=== PATIENT | male | born 1945 | race Caucasian/White ===

== ENCOUNTER 2017-04-26 16:42 | Inpatient (IN) | payer MEDICARE, BC ==
[2017-04-26] MEDS: SOD CHLORIDE 0.9% 500 ML IV (19:18)
[2017-04-26 19:29] LABS: WHITE BLOOD COUNT 2.8 10^3/ul (4.8-10.8)
[2017-04-26 19:29] LABS: ABNORMAL IP MESSAGE 1; HEMATOCRIT 16.7 % (42.0-52.0); MEAN CORPUSCULAR HEMOGLOBIN 28.4 pg (29.0-33.0); MEAN CORPUSCULAR HGB CONC 34.7 g/dl (32.0-37.0); MEAN CORPUSCULAR VOLUME 81.9 fl (82.0-101.0); NUCLEATED RED BLOOD CELLS% 0.7 /100WBC (0.0-0.0); POSITIVE DIFF @See below; RED BLOOD COUNT 2.04 10^6/ul (4.70-6.10); RED CELL DISTRIBUTION WIDTH 14.6 % (11.5-14.5)
[2017-04-26 19:38] LABS: ADD MAN DIFF? YES; HEMOGLOBIN 5.8 g/dl (14.0-18.0); PLATELET COUNT 24 10^3/UL (140-415)
[2017-04-26 19:43] LABS: PROTIME 13.3 Sec (11.9-14.9)
[2017-04-26 19:44] LABS: PARTIAL THROMBOPLASTIN TIME 34.6 Sec (25.0-35.0)
[2017-04-26 19:50] LABS: ALANINE AMINOTRANSFERASE 25 IU/L (13-69); ALBUMIN 3.3 g/dl (3.3-4.9); ALBUMIN/GLOBULIN RATIO 1.13; ALKALINE PHOSPHATASE 239 IU/L (42-121); ANION GAP 18 (8-16); ASPARTATE AMINO TRANSFERASE 13 IU/L (15-46); BILIRUBIN,INDIRECT 0.3 mg/dl (0-1.1); BILIRUBIN,TOTAL 0.3 mg/dl (0.2-1.3); BLOOD UREA NITROGEN 19 mg/dl (7-20); CALCIUM 8.3 mg/dl (8.4-10.2); CARBON DIOXIDE 25 mmol/L (21-31); CHLORIDE 99 mmol/L (97-110); CREATININE 1.09 mg/dl (0.61-1.24); GLUCOSE 134 mg/dl (70-220); LIPASE 41 U/L (23-300); POTASSIUM 4.1 mmol/L (3.5-5.1); SODIUM 138 mmol/L (135-144); TOTAL PROTEIN 6.2 g/dl (6.1-8.1)
[2017-04-26 20:02] LABS: TROPONIN-I 0.022 ng/ml (0.00-0.12)
[2017-04-26 20:08] LABS: ANISOCYTOSIS 3+ (0-0); BAND NEUTROPHILS #M 0.3 10^3/ul (0.0-0.6); BAND NEUTROPHILS % (M) 12 % (0-4); LYMPHOCYTES #M 0.7 10^3/ul (0.8-2.9); LYMPHOCYTES % (M) 28 % (15-51); METAMYELOCYTES %M 2 % (0-0); MICROCYTOSIS 3+ (0-0); MONOCYTE #M 0.1 10^3/ul (0.3-0.9); MONOCYTES % (M) 5 % (0-11); MYELOCYTES % (M) 3 % (0-0); PLATELET ESTIMATE SIG DECREASED; POLYCHROMASIA 2+ (0-0); PROMYELOCYTES % (M) 2 % (0-0); REACTIVE LYMPHOCYTES% (M) 1 % (0-0); SEG NEUT #M 1.3 10^3/ul (1.7-7.5); SEGMENTED NEUTROPHILS (M) % 47 % (39-77); SMUDGE%M 13 % (0-0)
[2017-04-27] MEDS ORDERED: PONATINIB HCL PO (09:00)
[2017-04-27] MEDS ORDERED: GLUCOSE GEL 15 GRAM TUBE PO ×2 (09:30)
[2017-04-27] MEDS ORDERED: DEXTROSE 50% 50 ML SYRINGE IV ×2 (09:30)
[2017-04-27] MEDS ORDERED: GLUCOSE GEL 15 GRAM TUBE BUCCAL (09:30)
[2017-04-27] MEDS ORDERED: GLUCAGON 1 MG INJ IM (09:30)
[2017-04-27] MEDS: [UNRECOGNIZED DRUG - OTHER] XX ×3 (10:00→22:48)
[2017-04-27 11:31] LABS: IMMEDIATE SPIN CROSSMATCH 1 2
[2017-04-27] MEDS: INSULIN ASPART [NOVOLOG] 3 ML PEN SC ×4 (12:00→21:00)
[2017-04-27] MEDS: DRONABINOL 2.5 MG CAP PO ×2 (12:33→22:47)
[2017-04-27] MEDS: METOPROLOL 25 MG TAB PO ×2 (12:34→21:50)
[2017-04-27] MEDS: metFORMIN 500 MG TAB PO ×2 (12:34→18:01)
[2017-04-27] MEDS: LINAGLIPTIN 5 MG TABLET PO (12:34)
[2017-04-27] MEDS: ACYCLOVIR 400 MG TAB PO ×2 (12:35→22:47)
[2017-04-27] MEDS: SENNA TAB PO ×2 (12:35→21:51)
[2017-04-27] MEDS: FUROSEMIDE 20 MG TAB PO (12:58)
[2017-04-27] MEDS: LORATADINE 10 MG TAB PO (17:55)
[2017-04-27] MEDS: SALMETEROL/FLUTICASONE 250/50 INHA INH ×2 (17:58→21:50)
[2017-04-27 19:13] LABS: ABNORMAL IP MESSAGE 1; HEMATOCRIT 24.2 % (42.0-52.0); HEMOGLOBIN 8.7 g/dl (14.0-18.0); MEAN CORPUSCULAR HEMOGLOBIN 29.7 pg (29.0-33.0); MEAN CORPUSCULAR VOLUME 82.6 fl (82.0-101.0); POSITIVE DIFF @See below; RED BLOOD COUNT 2.93 10^6/ul (4.70-6.10); RED CELL DISTRIBUTION WIDTH 14.4 % (11.5-14.5)
[2017-04-27 19:13] LABS: WHITE BLOOD COUNT 3.8 10^3/ul (4.8-10.8)
[2017-04-27 19:17] LABS: PLATELET COUNT 26 10^3/UL (140-415)
[2017-04-27 19:18] LABS: ADD MAN DIFF? YES
[2017-04-27 19:45] LABS: MAGNESIUM 1.6 mg/dl (1.7-2.5)
[2017-04-27 19:49] LABS: ANISOCYTOSIS 2+ (0-0); BAND NEUTROPHILS #M 0.1 10^3/ul (0.0-0.6); BAND NEUTROPHILS % (M) 3 % (0-4); EOSINOPHILS % (M) 1 % (0-7); GIANT THROMBO% (M) 2 % (0-0); LYMPHOCYTES #M 0.6 10^3/ul (0.8-2.9); LYMPHOCYTES % (M) 18 % (15-51); METAMYELOCYTES %M 1 % (0-0); MICROCYTOSIS 2+ (0-0); MONOCYTE #M 0.1 10^3/ul (0.3-0.9); MONOCYTES % (M) 5 % (0-11); MYELOCYTES #M 0.1 10^3/ul (0.0-0.0); MYELOCYTES % (M) 4 % (0-0); PLATELET ESTIMATE SIG DECREASED; POIKILOCYTOSIS 1+ (0-0); POLYCHROMASIA 2+ (0-0); PROMYELOCYTES % (M) 1 % (0-0); SEG NEUT #M 2.5 10^3/ul (1.7-7.5); SEGMENTED NEUTROPHILS (M) % 67 % (39-77); SMUDGE%M 1 % (0-0)
[2017-04-27 19:59] LABS: TROPONIN-I 0.044 ng/ml (0.00-0.12)
[2017-04-27] MEDS: INSULIN GLARGINE [LANtus] 3 ML PEN SC (21:00)
[2017-04-27] MEDS: TAMSULOSIN (SR) 0.4 MG CAP PO (21:50)
[2017-04-28 01:41] LABS: TROPONIN-I 0.035 ng/ml (0.00-0.12)
[2017-04-28] MEDS: ACCU-CHEK XX (02:00)
[2017-04-28] MEDS: ACYCLOVIR 400 MG TAB PO ×2 (08:16→21:39)
[2017-04-28] MEDS: DRONABINOL 2.5 MG CAP PO ×2 (08:16→21:38)
[2017-04-28] MEDS: LINAGLIPTIN 5 MG TABLET PO (08:16)
[2017-04-28] MEDS: INSULIN ASPART [NOVOLOG] 3 ML PEN SC ×7 (08:17→21:00)
[2017-04-28] MEDS: SENNA TAB PO ×2 (08:17→21:38)
[2017-04-28] MEDS: LORATADINE 10 MG TAB PO (08:18)
[2017-04-28] MEDS: METOPROLOL 25 MG TAB PO ×2 (08:19→21:39)
[2017-04-28] MEDS: metFORMIN 500 MG TAB PO ×2 (08:19→18:05)
[2017-04-28] MEDS: FUROSEMIDE 20 MG TAB PO (08:19)
[2017-04-28] MEDS: SALMETEROL/FLUTICASONE 250/50 INHA INH ×2 (08:22→21:38)
[2017-04-28 08:37] LABS: ADD MAN DIFF? NO
[2017-04-28 08:39] LABS: ABNORMAL IP MESSAGE 1; BASOPHILS % 0.5 % (0.0-2.0); EOSINOPHILS % 0.3 % (0.0-7.0); HEMATOCRIT 22.3 % (42.0-52.0); LYMPHOCYTES # 0.6 10^3/ul (0.8-2.9); LYMPHOCYTES % 15.3 % (15.0-51.0); MEAN CORPUSCULAR HEMOGLOBIN 29.1 pg (29.0-33.0); MEAN CORPUSCULAR HGB CONC 35.9 g/dl (32.0-37.0); MEAN CORPUSCULAR VOLUME 81.1 fl (82.0-101.0); MONOCYTE # 0.4 10^3/ul (0.3-0.9); MONOCYTES % 9.9 % (0.0-11.0); NEUTROPHIL # 2.3 10^3/ul (1.6-7.5); NEUTROPHILS % 61.1 % (39.0-77.0); POSITIVE DIFF @See below; RED BLOOD COUNT 2.75 10^6/ul (4.70-6.10); RED CELL DISTRIBUTION WIDTH 14.7 % (11.5-14.5)
[2017-04-28 08:39] LABS: WHITE BLOOD COUNT 3.7 10^3/ul (4.8-10.8)
[2017-04-28 08:46] LABS: PLATELET COUNT 22 10^3/UL (140-415)
[2017-04-28 09:09] LABS: ANION GAP 19 (8-16); BLOOD UREA NITROGEN 17 mg/dl (7-20); CALCIUM 8.5 mg/dl (8.4-10.2); CARBON DIOXIDE 22 mmol/L (21-31); CHLORIDE 102 mmol/L (97-110); GLUCOSE 137 mg/dl (70-220); MAGNESIUM 1.5 mg/dl (1.7-2.5); PHOSPHORUS 4.1 mg/dl (2.5-4.9); POTASSIUM 3.7 mmol/L (3.5-5.1); SODIUM 139 mmol/L (135-144)
[2017-04-28 10:13] LABS: ANISOCYTOSIS 3+ (0-0); BAND NEUTROPHILS #M 0.5 10^3/ul (0.0-0.6); BAND NEUTROPHILS % (M) 14 % (0-4); EOSINOPHILS % (M) 1 % (0-7); LYMPHOCYTES #M 0.4 10^3/ul (0.8-2.9); LYMPHOCYTES % (M) 13 % (15-51); MICROCYTOSIS 3+ (0-0); MONOCYTE #M 0.1 10^3/ul (0.3-0.9); MONOCYTES % (M) 3 % (0-11); MYELOCYTES #M 0.1 10^3/ul (0.0-0.0); MYELOCYTES % (M) 3 % (0-0); PLATELET ESTIMATE SIG DECREASED; POIKILOCYTOSIS 1+ (0-0); POLYCHROMASIA 1+ (0-0); REACTIVE LYMPHOCYTES% (M) 1 % (0-0); SEG NEUT #M 2.2 10^3/ul (1.7-7.5); SEGMENTED NEUTROPHILS (M) % 60 % (39-77); SMUDGE%M 2 % (0-0)
[2017-04-28] MEDS: PONATINIB PO (12:14)
[2017-04-28 12:24] LABS: WHITE BLOOD COUNT 3.7 10^3/ul (4.8-10.8)
[2017-04-28 12:24] LABS: ABNORMAL IP MESSAGE 1; HEMATOCRIT 23.2 % (42.0-52.0); HEMOGLOBIN 8.2 g/dl (14.0-18.0); MEAN CORPUSCULAR HEMOGLOBIN 29.2 pg (29.0-33.0); MEAN CORPUSCULAR HGB CONC 35.3 g/dl (32.0-37.0); MEAN CORPUSCULAR VOLUME 82.6 fl (82.0-101.0); POSITIVE DIFF @See below; RED BLOOD COUNT 2.81 10^6/ul (4.70-6.10); RED CELL DISTRIBUTION WIDTH 14.8 % (11.5-14.5)
[2017-04-28 12:37] LABS: ADD MAN DIFF? YES; PLATELET COUNT 22 10^3/UL (140-415)
[2017-04-28 12:55] LABS: ANION GAP 17 (8-16); BLOOD UREA NITROGEN 17 mg/dl (7-20); CALCIUM 8.5 mg/dl (8.4-10.2); CARBON DIOXIDE 24 mmol/L (21-31); CHLORIDE 101 mmol/L (97-110); CREATININE 0.98 mg/dl (0.61-1.24); GLUCOSE 147 mg/dl (70-220); POTASSIUM 3.6 mmol/L (3.5-5.1); SODIUM 138 mmol/L (135-144)
[2017-04-28 13:16] LABS: ANISOCYTOSIS 3+ (0-0); BAND NEUTROPHILS #M 0.5 10^3/ul (0.0-0.6); BAND NEUTROPHILS % (M) 15 % (0-4); GIANT THROMBO% (M) 1 % (0-0); LYMPHOCYTES #M 0.6 10^3/ul (0.8-2.9); LYMPHOCYTES % (M) 17 % (15-51); METAMYELOCYTES %M 1 % (0-0); MICROCYTOSIS 3+ (0-0); MONOCYTE #M 0.2 10^3/ul (0.3-0.9); MONOCYTES % (M) 6 % (0-11); MYELOCYTES #M 0.1 10^3/ul (0.0-0.0); MYELOCYTES % (M) 3 % (0-0); PLATELET ESTIMATE SIG DECREASED; POIKILOCYTOSIS 1+ (0-0); POLYCHROMASIA 1+ (0-0); SEG NEUT #M 2.2 10^3/ul (1.7-7.5); SEGMENTED NEUTROPHILS (M) % 58 % (39-77); SMUDGE%M 4 % (0-0)
[2017-04-28] MEDS: LACTOBACILLUS RHAMNOSUS CAP PO (18:22)
[2017-04-28 20:58] LABS: TYPE AND SCREEN 1
[2017-04-28] MEDS: INSULIN GLARGINE [LANtus] 3 ML PEN SC (21:00)
[2017-04-28] MEDS: TAMSULOSIN (SR) 0.4 MG CAP PO (21:38)
[2017-04-29] MEDS: ACCU-CHEK XX (02:00)
[2017-04-29] MEDS: INSULIN ASPART [NOVOLOG] 3 ML PEN SC ×4 (08:00→12:44)
[2017-04-29] MEDS: LORATADINE 10 MG TAB PO (08:46)
[2017-04-29] MEDS: ACYCLOVIR 400 MG TAB PO (08:46)
[2017-04-29] MEDS: LINAGLIPTIN 5 MG TABLET PO (08:46)
[2017-04-29] MEDS: metFORMIN 500 MG TAB PO (08:46)
[2017-04-29] MEDS: DRONABINOL 2.5 MG CAP PO (08:46)
[2017-04-29] MEDS: SENNA TAB PO (08:46)
[2017-04-29] MEDS: LACTOBACILLUS RHAMNOSUS CAP PO (08:46)
[2017-04-29] MEDS: FUROSEMIDE 20 MG TAB PO (08:47)
[2017-04-29] MEDS: METOPROLOL 25 MG TAB PO (08:47)
[2017-04-29] MEDS: SALMETEROL/FLUTICASONE 250/50 INHA INH (09:00)
[2017-04-29] MEDS: SOD CHLORIDE 0.9% 250 ML IV* (09:22)
[2017-04-29 10:15] LABS: ABNORMAL IP MESSAGE 1; HEMATOCRIT 24.4 % (42.0-52.0); HEMOGLOBIN 8.4 g/dl (14.0-18.0); MEAN CORPUSCULAR HEMOGLOBIN 28.5 pg (29.0-33.0); MEAN CORPUSCULAR HGB CONC 34.4 g/dl (32.0-37.0); MEAN CORPUSCULAR VOLUME 82.7 fl (82.0-101.0); MEAN PLATELET VOLUME 10.5 fl (7.4-10.4); PLATELET COUNT 70 10^3/UL (140-415); POSITIVE DIFF @See below; RED BLOOD COUNT 2.95 10^6/ul (4.70-6.10); RED CELL DISTRIBUTION WIDTH 15.2 % (11.5-14.5)
[2017-04-29 10:20] LABS: ADD MAN DIFF? YES
[2017-04-29 10:39] LABS: ANION GAP 19 (8-16); BLOOD UREA NITROGEN 14 mg/dl (7-20); CALCIUM 8.4 mg/dl (8.4-10.2); CARBON DIOXIDE 25 mmol/L (21-31); CHLORIDE 100 mmol/L (97-110); CREATININE 1.05 mg/dl (0.61-1.24); GLUCOSE 128 mg/dl (70-220); MAGNESIUM 1.5 mg/dl (1.7-2.5); PHOSPHORUS 4.1 mg/dl (2.5-4.9); POTASSIUM 3.8 mmol/L (3.5-5.1); SODIUM 140 mmol/L (135-144)
[2017-04-29 12:11] LABS: ANISOCYTOSIS 2+ (0-0); BAND NEUTROPHILS #M 0.7 10^3/ul (0.0-0.6); BAND NEUTROPHILS % (M) 19 % (0-4); GIANT THROMBO% (M) 3 % (0-0); LYMPHOCYTES % (M) 25 % (15-51); MICROCYTOSIS 2+ (0-0); MONOCYTE #M 0.2 10^3/ul (0.3-0.9); MONOCYTES % (M) 6 % (0-11); MYELOCYTES % (M) 1 % (0-0); PLATELET ESTIMATE DECREASED; POIKILOCYTOSIS 1+ (0-0); POLYCHROMASIA 1+ (0-0); REACTIVE LYMPHOCYTES #M 0.2 10^3/ul (0.0-0.0); REACTIVE LYMPHOCYTES% (M) 5 % (0-0); SEG NEUT #M 1.8 10^3/ul (1.7-7.5); SEGMENTED NEUTROPHILS (M) % 44 % (39-77); SMUDGE%M 5 % (0-0)
[2017-04-29] MEDS ORDERED: MAGNESIUM SULFATE 2 GM/50 ML 50 ML IVPB (12:30)
[2017-04-29] MEDS: MAGNESIUM SULFATE 2 GM/50 ML 50 ML IVPB (12:41)
[2017-04-29] MEDS: PONATINIB PO (12:43)
[2017-04-29] MEDS: [UNRECOGNIZED DRUG - REMARK] XX (13:30)
== END 2017-04-29 15:30 | disposition home health service (06) | DRG 813 ==
LOC: E/R 16:42 → MS4 18:54
PROC: 30233N1 Transfusion of Nonautologous Red Blood Cells into Peripheral Vein, Percutaneous Approach (ICD-10-PCS; 2017-04-26)
PROC: 30233R1 Transfusion of Nonautologous Platelets into Peripheral Vein, Percutaneous Approach (ICD-10-PCS; principal; 2017-04-28)
DX: D69.59 Other secondary thrombocytopenia (principal); I50.33 Acute on chronic diastolic (congestive) heart failure; D61.818 Other pancytopenia; C92.10 Chronic myeloid leukemia, BCR/ABL-positive, not having achieved remission; I24.9 Acute ischemic heart disease, unspecified; K92.2 Gastrointestinal hemorrhage, unspecified; D64.81 Anemia due to antineoplastic chemotherapy; K92.1 Melena; I11.0 Hypertensive heart disease with heart failure; E11.9 Type 2 diabetes mellitus without complications; N40.0 Benign prostatic hyperplasia without lower urinary tract symptoms; I25.10 Atherosclerotic heart disease of native coronary artery without angina pectoris; E78.5 Hyperlipidemia, unspecified; I49.3 Ventricular premature depolarization; T45.1X5A Adverse effect of antineoplastic and immunosuppressive drugs, initial encounter; Z92.21 Personal history of antineoplastic chemotherapy; Z86.19 Personal history of other infectious and parasitic diseases; Z87.01 Personal history of pneumonia (recurrent)
CPT/HCPCS: 36415; 36430; 71045; 80048; 80053; 82962; 83690; 83735; 84100; 84443; 84484; 85025; 85610; 85730; 86644; 86850; 86900; 86901; 86920; 86945; 87040; 93005; 97162; 99291-25

== ENCOUNTER 2017-05-11 14:21 | Inpatient (IN) | payer MEDICARE, BC ==
[2017-05-11 20:31] LABS: ABNORMAL IP MESSAGE 1; HEMOGLOBIN 7.4 g/dl (14.0-18.0); MEAN CORPUSCULAR HEMOGLOBIN 28.6 pg (29.0-33.0); MEAN CORPUSCULAR HGB CONC 33.6 g/dl (32.0-37.0); MEAN CORPUSCULAR VOLUME 84.9 fl (82.0-101.0); PLATELET COUNT 41 10^3/UL (140-415); POSITIVE DIFF @See below; RED BLOOD COUNT 2.59 10^6/ul (4.70-6.10); RED CELL DISTRIBUTION WIDTH 15.9 % (11.5-14.5)
[2017-05-11 20:35] LABS: ADD MAN DIFF? YES
[2017-05-11 20:45] LABS: INR 1.11; PROTIME 14.5 Sec (11.9-14.9); PT RATIO 1.1
[2017-05-11 20:46] LABS: PARTIAL THROMBOPLASTIN TIME 38.8 Sec (25.0-35.0)
[2017-05-11 20:49] LABS: ALANINE AMINOTRANSFERASE 29 IU/L (13-69); ALBUMIN 3.4 g/dl (3.3-4.9); ALBUMIN/GLOBULIN RATIO 1.03; ALKALINE PHOSPHATASE 216 IU/L (42-121); ANION GAP 15 (8-16); ASPARTATE AMINO TRANSFERASE 15 IU/L (15-46); BILIRUBIN,INDIRECT 0.3 mg/dl (0-1.1); BILIRUBIN,TOTAL 0.3 mg/dl (0.2-1.3); BLOOD UREA NITROGEN 26 mg/dl (7-20); CALCIUM 8.4 mg/dl (8.4-10.2); CARBON DIOXIDE 25 mmol/L (21-31); CHLORIDE 102 mmol/L (97-110); CREATININE 1.15 mg/dl (0.61-1.24); GLUCOSE 176 mg/dl (70-220); LIPASE 59 U/L (23-300); POTASSIUM 3.7 mmol/L (3.5-5.1); SODIUM 138 mmol/L (135-144); TOTAL PROTEIN 6.7 g/dl (6.1-8.1)
[2017-05-11 20:54] LABS: ANISOCYTOSIS 2+ (0-0); BAND NEUTROPHILS #M 0.3 10^3/ul (0.0-0.6); BAND NEUTROPHILS % (M) 8 % (0-4); ERYTHROBLAST% (NRBC) (M) 2 % (0-0); GIANT THROMBO% (M) 5 % (0-0); LYMPHOCYTES #M 0.8 10^3/ul (0.8-2.9); LYMPHOCYTES % (M) 20 % (15-51); MICROCYTOSIS 2+ (0-0); MONOCYTE #M 0.2 10^3/ul (0.3-0.9); MONOCYTES % (M) 5 % (0-11); MYELOCYTES #M 0.2 10^3/ul (0.0-0.0); MYELOCYTES % (M) 5 % (0-0); PLATELET ESTIMATE DECREASED; POIKILOCYTOSIS 1+ (0-0); POLYCHROMASIA 1+ (0-0); PROMYELOCYTES % (M) 2 % (0-0); SEG NEUT #M 2.4 10^3/ul (1.7-7.5); SEGMENTED NEUTROPHILS (M) % 60 % (39-77); SMUDGE%M 4 % (0-0)
[2017-05-11 21:02] LABS: B-TYPE NATRIURETIC PEPTIDE 15800 PG/ML (0-125); TROPONIN-I 0.032 ng/ml (0.00-0.12)
[2017-05-11 22:17] LABS: IMMEDIATE SPIN CROSSMATCH 1 2
[2017-05-12] MEDS: FUROSEMIDE 40 MG INJ IV ×2 (07:53→21:31)
[2017-05-12] MEDS ORDERED: GLUCOSE GEL 15 GRAM TUBE BUCCAL (09:00)
[2017-05-12] MEDS ORDERED: GLUCAGON 1 MG INJ IM (09:00)
[2017-05-12] MEDS ORDERED: GLUCOSE GEL 15 GRAM TUBE PO ×2 (09:00)
[2017-05-12] MEDS ORDERED: DEXTROSE 50% 50 ML SYRINGE IV ×2 (09:00)
[2017-05-12] MEDS ORDERED: PREGABALIN 25 MG CAP PO (09:00)
[2017-05-12] MEDS ORDERED: RANOLAZINE (SR) 500 MG TAB PO (10:00)
[2017-05-12] MEDS: LORATADINE 10 MG TAB PO (10:41)
[2017-05-12] MEDS: SENNA TAB PO ×2 (10:41→21:31)
[2017-05-12] MEDS: LINAGLIPTIN 5 MG TABLET PO (10:42)
[2017-05-12] MEDS: L ACIDOPHIL/B LACTIS/B LONGUM CAPSULE PO ×2 (10:43→21:34)
[2017-05-12] MEDS: METOPROLOL 25 MG TAB PO (10:43)
[2017-05-12] MEDS: CYANOCOBALAMIN 500 MCG TAB PO (10:43)
[2017-05-12] MEDS: ESCITALOPRAM 10 MG TAB PO (10:44)
[2017-05-12] MEDS: FUROSEMIDE 20 MG TAB PO (10:45)
[2017-05-12] MEDS: ENOXAPARIN 30 MG/0.3 ML SYG SC (11:01)
[2017-05-12 12:51] LABS: SODIUM,URINE RANDOM 113 mmol/L (30-90)
[2017-05-12 13:02] LABS: CREATININE,URINE RANDOM < 12.40 mg/dl (20-370)
[2017-05-12] MEDS: INSULIN ASPART [NOVOLOG] 3 ML PEN SC ×3 (13:58→18:00)
[2017-05-12] MEDS: DRONABINOL 2.5 MG CAP PO ×2 (13:59→22:45)
[2017-05-12 14:10] LABS: ADD UMIC NO; UR ASCORBIC ACID NEGATIVE (NEGATIVE); UR BILIRUBIN (Dip) NEGATIVE (NEGATIVE); UR BLOOD (Dip) NEGATIVE (NEGATIVE); UR CLARITY CLEAR (CLEAR); UR COLOR STRAW (YELLOW); UR GLUCOSE (Dip) NEGATIVE (NEGATIVE); UR KETONES (Dip) NEGATIVE (NEGATIVE); UR LEUKOCYTE ESTERASE (Dip) NEGATIVE Leu/ul (NEGATIVE); UR NITRITE (Dip) NEGATIVE (NEGATIVE); UR SPECIFIC GRAVITY (Dip) 1.005 (1.003-1.030); UR TOTAL PROTEIN (Dip) NEGATIVE (NEGATIVE); UR UROBILINOGEN (Dip) NEGATIVE (NEGATIVE)
[2017-05-12 15:53] LABS: CREATINE KINASE 54 IU/L (23-200)
[2017-05-12 16:03] LABS: CK INDEX 5.6
[2017-05-12 16:07] LABS: TROPONIN-I 0.031 ng/ml (0.00-0.12)
[2017-05-12 16:14] LABS: CK-MB 3.02 ng/ml (0.0-2.4)
[2017-05-12] MEDS: metFORMIN 500 MG TAB PO (18:00)
[2017-05-12] MEDS: INSULIN GLARGINE [LANtus] 3 ML PEN SC (21:24)
[2017-05-12] MEDS: TAMSULOSIN (SR) 0.4 MG CAP PO (21:31)
[2017-05-12] MEDS: RANOLAZINE (SR) 500 MG TAB PO (21:33)
[2017-05-12 21:36] LABS: HEMATOCRIT 26.4 % (42.0-52.0)
[2017-05-12 22:01] LABS: CREATINE KINASE 57 IU/L (23-200)
[2017-05-12 22:12] LABS: CK INDEX 5.3; TROPONIN-I 0.036 ng/ml (0.00-0.12)
[2017-05-12 22:13] LABS: CK-MB 3.02 ng/ml (0.0-2.4)
[2017-05-12] MEDS: PREGABALIN 50 MG CAP PO (22:45)
[2017-05-12] MEDS: METOPROLOL 50 MG TAB PO (22:46)
[2017-05-13] MEDS: METOPROLOL 50 MG TAB PO (09:00)
[2017-05-13] MEDS ORDERED: PONATINIB HCL PO ×2 (09:00)
[2017-05-13] MEDS: L ACIDOPHIL/B LACTIS/B LONGUM CAPSULE PO ×2 (09:10→21:46)
[2017-05-13] MEDS: RANOLAZINE (SR) 500 MG TAB PO ×2 (09:12→21:46)
[2017-05-13] MEDS: SENNA TAB PO ×2 (09:12→21:46)
[2017-05-13] MEDS: CYANOCOBALAMIN 500 MCG TAB PO (09:13)
[2017-05-13] MEDS: LORATADINE 10 MG TAB PO (09:13)
[2017-05-13] MEDS: LINAGLIPTIN 5 MG TABLET PO (09:13)
[2017-05-13] MEDS: DRONABINOL 2.5 MG CAP PO ×2 (09:13→21:46)
[2017-05-13] MEDS: ESCITALOPRAM 10 MG TAB PO (09:14)
[2017-05-13] MEDS: FUROSEMIDE 20 MG TAB PO (09:15)
[2017-05-13] MEDS: metFORMIN 500 MG TAB PO ×2 (09:19→16:30)
[2017-05-13] MEDS: INSULIN ASPART [NOVOLOG] 3 ML PEN SC ×3 (09:30→17:55)
[2017-05-13 14:26] LABS: CREATININE, RANDOM URINE 14 mg/dL (20-370); MICROALBUMIN/CREATININE RATIO 71 (<30)
[2017-05-13] MEDS: [UNRECOGNIZED DRUG - OTHER] XX (20:00)
[2017-05-13] MEDS: METOPROLOL 25 MG TAB PO (21:00)
[2017-05-13] MEDS: TAMSULOSIN (SR) 0.4 MG CAP PO (21:46)
[2017-05-13] MEDS: INSULIN GLARGINE [LANtus] 3 ML PEN SC (22:04)
[2017-05-14] MEDS: [UNRECOGNIZED DRUG - OTHER] XX ×2 (04:00→20:00)
[2017-05-14] MEDS: INSULIN ASPART [NOVOLOG] 3 ML PEN SC ×5 (08:20→22:10)
[2017-05-14 08:50] LABS: ABNORMAL IP MESSAGE 1; HEMATOCRIT 25.3 % (42.0-52.0); HEMOGLOBIN 8.6 g/dl (14.0-18.0); MEAN CORPUSCULAR HEMOGLOBIN 28.8 pg (29.0-33.0); MEAN CORPUSCULAR VOLUME 84.6 fl (82.0-101.0); NUCLEATED RED BLOOD CELLS% 0.9 /100WBC (0.0-0.0); POSITIVE DIFF @See below; RED BLOOD COUNT 2.99 10^6/ul (4.70-6.10)
[2017-05-14 08:50] LABS: WHITE BLOOD COUNT 3.2 10^3/ul (4.8-10.8)
[2017-05-14 08:58] LABS: ADD MAN DIFF? YES; PLATELET COUNT 35 10^3/UL (140-415)
[2017-05-14 09:25] LABS: HEMOGLOBIN A1C 6.4 % (0-5.9)
[2017-05-14 09:26] LABS: ANION GAP 13 (8-16); BLOOD UREA NITROGEN 33 mg/dl (7-20); CALCIUM 8.6 mg/dl (8.4-10.2); CARBON DIOXIDE 28 mmol/L (21-31); CHLORIDE 101 mmol/L (97-110); CREATININE 1.31 mg/dl (0.61-1.24); GLUCOSE 136 mg/dl (70-220); MAGNESIUM 1.5 mg/dl (1.7-2.5); PHOSPHORUS 4.9 mg/dl (2.5-4.9); SODIUM 138 mmol/L (135-144)
[2017-05-14] MEDS: LORATADINE 10 MG TAB PO (09:27)
[2017-05-14] MEDS: L ACIDOPHIL/B LACTIS/B LONGUM CAPSULE PO ×2 (09:27→20:51)
[2017-05-14] MEDS: SENNA TAB PO ×2 (09:27→20:51)
[2017-05-14] MEDS: metFORMIN 500 MG TAB PO (09:27)
[2017-05-14] MEDS: RANOLAZINE (SR) 500 MG TAB PO ×2 (09:27→20:51)
[2017-05-14] MEDS: FUROSEMIDE 20 MG TAB PO (09:28)
[2017-05-14] MEDS: DRONABINOL 2.5 MG CAP PO ×2 (09:28→20:51)
[2017-05-14] MEDS: ESCITALOPRAM 10 MG TAB PO (09:28)
[2017-05-14] MEDS: LINAGLIPTIN 5 MG TABLET PO (09:28)
[2017-05-14] MEDS: CYANOCOBALAMIN 500 MCG TAB PO (09:28)
[2017-05-14] MEDS: METOPROLOL 25 MG TAB PO ×2 (09:29→20:52)
[2017-05-14] MEDS: ACCU-CHEK XX ×2 (09:55→20:50)
[2017-05-14 10:33] LABS: ANISOCYTOSIS 3+ (0-0); BAND NEUTROPHILS #M 0.1 10^3/ul (0.0-0.6); BAND NEUTROPHILS % (M) 5 % (0-4); EOSINOPHILS % (M) 1 % (0-7); ERYTHROBLAST% (NRBC) (M) 4 % (0-0); GIANT THROMBO% (M) 6 % (0-0); LYMPHOCYTES #M 0.5 10^3/ul (0.8-2.9); LYMPHOCYTES % (M) 17 % (15-51); METAMYELOCYTES %M 1 % (0-0); MICROCYTOSIS 3+ (0-0); MONOCYTES % (M) 3 % (0-11); MYELOCYTES % (M) 2 % (0-0); PLATELET ESTIMATE SIG DECREASED; POIKILOCYTOSIS 1+ (0-0); POLYCHROMASIA 1+ (0-0); REACTIVE LYMPHOCYTES% (M) 2 % (0-0); SEG NEUT #M 2.2 10^3/ul (1.7-7.5); SEGMENTED NEUTROPHILS (M) % 69 % (39-77); SMUDGE%M 1 % (0-0)
[2017-05-14 13:36] LABS: TYPE AND SCREEN 1
[2017-05-14] MEDS: LIDOCAINE 1% (MPF) 5 ML VIAL (15:24)
[2017-05-14] MEDS ORDERED: INSULIN ASPART [NOVOLOG] 3 ML PEN SC (17:55)
[2017-05-14] MEDS: TAMSULOSIN (SR) 0.4 MG CAP PO (20:51)
[2017-05-14] MEDS: INSULIN GLARGINE [LANtus] 3 ML PEN SC (21:00)
[2017-05-15] MEDS: ACCU-CHEK XX ×6 (01:53→19:55)
[2017-05-15] MEDS: [UNRECOGNIZED DRUG - OTHER] XX ×3 (04:00→19:43)
[2017-05-15 06:30] LABS: HEMOGLOBIN 8.3 g/dl (14.0-18.0); NUCLEATED RED BLOOD CELLS% 0.8 /100WBC (0.0-0.0); POSITIVE DIFF @See below
[2017-05-15 06:30] LABS: WHITE BLOOD COUNT 3.8 10^3/ul (4.8-10.8)
[2017-05-15 06:43] LABS: HEMATOCRIT 24.8 % (42.0-52.0); MEAN CORPUSCULAR HEMOGLOBIN 28.4 pg (29.0-33.0); MEAN CORPUSCULAR HGB CONC 33.5 g/dl (32.0-37.0); MEAN CORPUSCULAR VOLUME 84.9 fl (82.0-101.0); RED BLOOD COUNT 2.92 10^6/ul (4.70-6.10); RED CELL DISTRIBUTION WIDTH 15.9 % (11.5-14.5)
[2017-05-15 06:44] LABS: ABNORMAL IP MESSAGE 1; ADD MAN DIFF? YES; PLATELET COUNT 58 10^3/UL (140-415)
[2017-05-15 07:04] LABS: ANION GAP 13 (8-16); BLOOD UREA NITROGEN 33 mg/dl (7-20); CALCIUM 8.5 mg/dl (8.4-10.2); CARBON DIOXIDE 29 mmol/L (21-31); CHLORIDE 101 mmol/L (97-110); CREATININE 1.41 mg/dl (0.61-1.24); GLUCOSE 98 mg/dl (70-220); MAGNESIUM 1.4 mg/dl (1.7-2.5); PHOSPHORUS 4.8 mg/dl (2.5-4.9); POTASSIUM 4.1 mmol/L (3.5-5.1); SODIUM 139 mmol/L (135-144)
[2017-05-15] MEDS ORDERED: INSULIN ASPART [NOVOLOG] 3 ML PEN SC ×2 (07:55→11:50)
[2017-05-15] MEDS: INSULIN ASPART [NOVOLOG] 3 ML PEN SC ×7 (07:55→21:00)
[2017-05-15] MEDS: CYANOCOBALAMIN 500 MCG TAB PO (09:12)
[2017-05-15] MEDS: RANOLAZINE (SR) 500 MG TAB PO ×2 (09:13→21:18)
[2017-05-15] MEDS: SENNA TAB PO ×2 (09:13→21:18)
[2017-05-15] MEDS: METOPROLOL 25 MG TAB PO ×2 (09:13→21:18)
[2017-05-15] MEDS: LINAGLIPTIN 5 MG TABLET PO (09:13)
[2017-05-15] MEDS: L ACIDOPHIL/B LACTIS/B LONGUM CAPSULE PO ×2 (09:13→21:18)
[2017-05-15] MEDS: LORATADINE 10 MG TAB PO (09:13)
[2017-05-15] MEDS: ESCITALOPRAM 10 MG TAB PO (09:13)
[2017-05-15] MEDS: MAGNESIUM SULFATE 2 GM/50 ML 50 ML IVPB (09:36)
[2017-05-15] MEDS: DRONABINOL 2.5 MG CAP PO ×2 (09:36→21:18)
[2017-05-15 09:48] LABS: ANISOCYTOSIS 2+ (0-0); BAND NEUTROPHILS #M 0.5 10^3/ul (0.0-0.6); BAND NEUTROPHILS % (M) 15 % (0-4); GIANT THROMBO% (M) 14 % (0-0); LYMPHOCYTES #M 0.3 10^3/ul (0.8-2.9); LYMPHOCYTES % (M) 9 % (15-51); METAMYELOCYTES %M 1 % (0-0); MICROCYTOSIS 2+ (0-0); MONOCYTES % (M) 2 % (0-11); MYELOCYTES #M 0.2 10^3/ul (0.0-0.0); MYELOCYTES % (M) 6 % (0-0); PLATELET ESTIMATE SIG DECREASED; POLYCHROMASIA 3+ (0-0); PROMYELOCYTES #M 0.1 10^3/ul (0-0); PROMYELOCYTES % (M) 3 % (0-0); REACTIVE LYMPHOCYTES #M 0.1 10^3/ul (0.0-0.0); REACTIVE LYMPHOCYTES% (M) 3 % (0-0); SEG NEUT #M 2.3 10^3/ul (1.7-7.5); SEGMENTED NEUTROPHILS (M) % 59 % (39-77); SMUDGE%M 3 % (0-0)
[2017-05-15 15:42] LABS: HAPTOGLOBIN 392 mg/dL (43-212)
[2017-05-15 17:12] LABS: IMMEDIATE SPIN CROSSMATCH 1 1
[2017-05-15] MEDS: TAMSULOSIN (SR) 0.4 MG CAP PO (21:17)
[2017-05-15] MEDS: INSULIN GLARGINE [LANtus] 3 ML PEN SC (22:06)
[2017-05-16] MEDS: PREGABALIN 50 MG CAP PO ×2 (00:45→09:00)
[2017-05-16] MEDS: ACCU-CHEK XX ×3 (02:00→10:15)
[2017-05-16] MEDS: [UNRECOGNIZED DRUG - OTHER] XX (04:00)
[2017-05-16 06:42] LABS: ABNORMAL IP MESSAGE 1; HEMATOCRIT 28.3 % (42.0-52.0); HEMOGLOBIN 9.7 g/dl (14.0-18.0); MEAN CORPUSCULAR HEMOGLOBIN 29.2 pg (29.0-33.0); MEAN CORPUSCULAR HGB CONC 34.3 g/dl (32.0-37.0); MEAN CORPUSCULAR VOLUME 85.2 fl (82.0-101.0); NUCLEATED RED BLOOD CELLS% 0.8 /100WBC (0.0-0.0); PLATELET COUNT 56 10^3/UL (140-415); POSITIVE DIFF @See below; RED BLOOD COUNT 3.32 10^6/ul (4.70-6.10); RED CELL DISTRIBUTION WIDTH 15.8 % (11.5-14.5)
[2017-05-16 06:42] LABS: WHITE BLOOD COUNT 3.9 10^3/ul (4.8-10.8)
[2017-05-16 07:03] LABS: ADD MAN DIFF? YES
[2017-05-16 07:14] LABS: ANION GAP 15 (8-16); BLOOD UREA NITROGEN 35 mg/dl (7-20); CALCIUM 8.8 mg/dl (8.4-10.2); CARBON DIOXIDE 27 mmol/L (21-31); CHLORIDE 101 mmol/L (97-110); CREATININE 1.48 mg/dl (0.61-1.24); GLUCOSE 122 mg/dl (70-220); MAGNESIUM 1.8 mg/dl (1.7-2.5); PHOSPHORUS 4.7 mg/dl (2.5-4.9); POTASSIUM 4.5 mmol/L (3.5-5.1); SODIUM 138 mmol/L (135-144)
[2017-05-16] MEDS: INSULIN ASPART [NOVOLOG] 3 ML PEN SC ×2 (07:55→08:57)
[2017-05-16] MEDS: CYANOCOBALAMIN 500 MCG TAB PO (09:00)
[2017-05-16] MEDS: LINAGLIPTIN 5 MG TABLET PO (09:00)
[2017-05-16] MEDS: DRONABINOL 2.5 MG CAP PO (09:00)
[2017-05-16] MEDS: L ACIDOPHIL/B LACTIS/B LONGUM CAPSULE PO (09:00)
[2017-05-16] MEDS: RANOLAZINE (SR) 500 MG TAB PO (09:00)
[2017-05-16] MEDS: SENNA TAB PO (09:00)
[2017-05-16] MEDS: LORATADINE 10 MG TAB PO (09:00)
[2017-05-16] MEDS: METOPROLOL 25 MG TAB PO (09:00)
[2017-05-16] MEDS: ESCITALOPRAM 10 MG TAB PO (09:00)
[2017-05-16 09:30] LABS: ANISOCYTOSIS 2+ (0-0); BAND NEUTROPHILS #M 0.4 10^3/ul (0.0-0.6); BAND NEUTROPHILS % (M) 12 % (0-4); BLAST% (M) 6.1 % (0-0); EOSINOPHILS % (M) 1 % (0-7); ERYTHROBLAST% (NRBC) (M) 1 % (0-0); GIANT THROMBO% (M) 19 % (0-0); LYMPHOCYTES #M 0.3 10^3/ul (0.8-2.9); LYMPHOCYTES % (M) 9 % (15-51); METAMYELOCYTES %M 2 % (0-0); MICROCYTOSIS 2+ (0-0); MONOCYTES % (M) 1 % (0-11); MYELOCYTES #M 0.1 10^3/ul (0.0-0.0); MYELOCYTES % (M) 3 % (0-0); PLATELET ESTIMATE DECREASED; POIKILOCYTOSIS 1+ (0-0); POLYCHROMASIA 1+ (0-0); REACTIVE LYMPHOCYTES #M 0.2 10^3/ul (0.0-0.0); REACTIVE LYMPHOCYTES% (M) 7 % (0-0); SEG NEUT #M 2.3 10^3/ul (1.7-7.5); SEGMENTED NEUTROPHILS (M) % 59 % (39-77)
== END 2017-05-16 11:55 | disposition home health service (06) | DRG 808 ==
LOC: E/R 05-12 21:40 → TEL 21:15
PROC: 30233N1 Transfusion of Nonautologous Red Blood Cells into Peripheral Vein, Percutaneous Approach (ICD-10-PCS; 2017-05-11)
PROC: 0W993ZZ Drainage of Right Pleural Cavity, Percutaneous Approach (ICD-10-PCS; principal; 2017-05-14)
PROC: 30233R1 Transfusion of Nonautologous Platelets into Peripheral Vein, Percutaneous Approach (ICD-10-PCS; 2017-05-14)
DX: D61.810 Antineoplastic chemotherapy induced pancytopenia (principal); I50.33 Acute on chronic diastolic (congestive) heart failure; J96.01 Acute respiratory failure with hypoxia; N17.9 Acute kidney failure, unspecified; C92.00 Acute myeloblastic leukemia, not having achieved remission; J90 Pleural effusion, not elsewhere classified; R64 Cachexia; E87.1 Hypo-osmolality and hyponatremia; I11.0 Hypertensive heart disease with heart failure; E83.42 Hypomagnesemia; E11.9 Type 2 diabetes mellitus without complications; I25.10 Atherosclerotic heart disease of native coronary artery without angina pectoris; N40.0 Benign prostatic hyperplasia without lower urinary tract symptoms; R53.83 Other fatigue; Z68.24 Body mass index [BMI] 24.0-24.9, adult
CPT/HCPCS: 36415; 36430; 71045; 76942; 80048; 80053; 81003; 82043; 82550; 82553; 82962; 83010; 83036; 83690; 83735; 83880; 84100; 84155; 84300; 84443; 84484; 85014; 85018; 85025; 85610; 85730; 86644; 86850; 86900; 86901; 86920; 86945; 87081; 87400; 93005; 96372; 96374; 96375; 99285-25

== ENCOUNTER 2017-06-01 10:08 | Emergency (ER) | payer SELFPAY, BC, MEDICARE | END 2017-06-01 14:31 | disposition left against medical advice (07) | LOC: E/R 14:31 | DX: Z53.21 Procedure and treatment not carried out due to patient leaving prior to being seen by health care provider (principal) ==

== ENCOUNTER 2017-07-19 00:16 | Inpatient (IN) | payer MEDICARE, BC ==
[2017-07-19 02:38] LABS: WHITE BLOOD COUNT 2.1 10^3/ul (4.8-10.8)
[2017-07-19 02:38] LABS: ABNORMAL IP MESSAGE 1; HEMATOCRIT 22.8 % (42.0-52.0); HEMOGLOBIN 7.6 g/dl (14.0-18.0); MEAN CORPUSCULAR HEMOGLOBIN 30.6 pg (29.0-33.0); MEAN CORPUSCULAR HGB CONC 33.3 g/dl (32.0-37.0); MEAN CORPUSCULAR VOLUME 91.9 fl (82.0-101.0); NUCLEATED RED BLOOD CELLS% 1.9 /100WBC (0.0-0.0); PLATELET COUNT 58 10^3/UL (140-415); POSITIVE DIFF @See below; RED BLOOD COUNT 2.48 10^6/ul (4.70-6.10); RED CELL DISTRIBUTION WIDTH 19.4 % (11.5-14.5)
[2017-07-19 02:40] LABS: ADD MAN DIFF? YES
[2017-07-19 02:51] LABS: LACTIC ACID 0.6 mmol/L (0.5-2.0)
[2017-07-19 03:00] LABS: ALANINE AMINOTRANSFERASE 30 IU/L (13-69); ALBUMIN 3.8 g/dl (3.3-4.9); ALBUMIN/GLOBULIN RATIO 1.35; ALKALINE PHOSPHATASE 93 IU/L (42-121); ANION GAP 15 (8-16); ASPARTATE AMINO TRANSFERASE 20 IU/L (15-46); BILIRUBIN,INDIRECT 0.3 mg/dl (0-1.1); BILIRUBIN,TOTAL 0.3 mg/dl (0.2-1.3); BLOOD UREA NITROGEN 22 mg/dl (7-20); CALCIUM 8.9 mg/dl (8.4-10.2); CARBON DIOXIDE 26 mmol/L (21-31); CHLORIDE 102 mmol/L (97-110); CREATININE 1.04 mg/dl (0.61-1.24); GLUCOSE 149 mg/dl (70-220); POTASSIUM 4.4 mmol/L (3.5-5.1); SODIUM 139 mmol/L (135-144); TOTAL PROTEIN 6.6 g/dl (6.1-8.1)
[2017-07-19 03:07] LABS: INR 1.06; PROTIME 13.9 Sec (11.9-14.9); PT RATIO 1.1
[2017-07-19 03:11] LABS: TROPONIN-I 0.041 ng/ml (0.00-0.12)
[2017-07-19 04:11] LABS: ANISOCYTOSIS 3+ (0-0); BAND NEUTROPHILS #M 0.2 10^3/ul (0.0-0.6); BAND NEUTROPHILS % (M) 14 % (0-4); EOSINOPHILS % (M) 1 % (0-7); ERYTHROBLAST% (NRBC) (M) 3 % (0-0); GIANT THROMBO% (M) 4 % (0-0); LYMPHOCYTES #M 0.4 10^3/ul (0.8-2.9); LYMPHOCYTES % (M) 20 % (15-51); METAMYELOCYTES %M 1 % (0-0); MICROCYTOSIS 3+ (0-0); MONOCYTE #M 0.1 10^3/ul (0.3-0.9); MONOCYTES % (M) 5 % (0-11); MYELOCYTES % (M) 2 % (0-0); PLATELET ESTIMATE DECREASED; POIKILOCYTOSIS 1+ (0-0); POLYCHROMASIA 3+ (0-0); PROMYELOCYTES % (M) 1 % (0-0); REACTIVE LYMPHOCYTES% (M) 2 % (0-0); SEG NEUT #M 1.2 10^3/ul (1.6-7.5); SEGMENTED NEUTROPHILS (M) % 56 % (39-77); SMUDGE%M 2 % (0-0)
[2017-07-19 06:45] LABS: LACTIC ACID 0.9 mmol/L (0.5-2.0)
[2017-07-19 07:03] LABS: ADD UMIC NO; UR ASCORBIC ACID NEGATIVE (NEGATIVE); UR BILIRUBIN (Dip) NEGATIVE (NEGATIVE); UR BLOOD (Dip) NEGATIVE (NEGATIVE); UR CLARITY CLEAR (CLEAR); UR COLOR YELLOW (YELLOW); UR GLUCOSE (Dip) NEGATIVE (NEGATIVE); UR KETONES (Dip) NEGATIVE (NEGATIVE); UR LEUKOCYTE ESTERASE (Dip) NEGATIVE Leu/ul (NEGATIVE); UR NITRITE (Dip) NEGATIVE (NEGATIVE); UR SPECIFIC GRAVITY (Dip) 1.012 (1.003-1.030); UR TOTAL PROTEIN (Dip) NEGATIVE (NEGATIVE); UR UROBILINOGEN (Dip) NEGATIVE (NEGATIVE)
[2017-07-19] MEDS ORDERED: GLUCOSE GEL 15 GRAM TUBE BUCCAL (09:30)
[2017-07-19] MEDS ORDERED: DEXTROSE 50% 50 ML SYRINGE IV ×2 (09:30)
[2017-07-19] MEDS ORDERED: GLUCAGON 1 MG INJ IM (09:30)
[2017-07-19] MEDS ORDERED: GLUCOSE GEL 15 GRAM TUBE PO ×2 (09:30)
[2017-07-19] MEDS: PANTOPRAZOLE (EC) 40 MG TAB PO (10:13)
[2017-07-19 11:15] LABS: LACTIC ACID 0.8 mmol/L (0.5-2.0)
[2017-07-19 12:11] LABS: IMMEDIATE SPIN CROSSMATCH 1 1
[2017-07-19] MEDS: SOD CHLORIDE 0.9% 250 ML IV* (12:20)
[2017-07-19] MEDS: INSULIN ASPART [NOVOLOG] 3 ML PEN SC ×2 (12:52→17:42)
[2017-07-19] MEDS: TAMSULOSIN (SR) 0.4 MG CAP PO (20:40)
[2017-07-19] MEDS: SENNA TAB PO (20:40)
[2017-07-19] MEDS: METOPROLOL 25 MG TAB PO (20:42)
[2017-07-19] MEDS: DRONABINOL 2.5 MG CAP PO (20:42)
[2017-07-19] MEDS: INSULIN GLARGINE [LANtus] 3 ML PEN SC (21:01)
[2017-07-20] MEDS: PIPER-TAZO 3.375 GM IV (PMX) 100 ML IVPB ×4 (02:17→20:40)
[2017-07-20] MEDS: PANTOPRAZOLE (EC) 40 MG TAB PO (05:51)
[2017-07-20] MEDS: INSULIN ASPART [NOVOLOG] 3 ML PEN SC ×3 (08:00→18:44)
[2017-07-20 08:06] LABS: WHITE BLOOD COUNT 2.7 10^3/ul (4.8-10.8)
[2017-07-20 08:06] LABS: ABNORMAL IP MESSAGE 1; HEMATOCRIT 27.9 % (42.0-52.0); HEMOGLOBIN 9.3 g/dl (14.0-18.0); MEAN CORPUSCULAR HEMOGLOBIN 29.8 pg (29.0-33.0); MEAN CORPUSCULAR HGB CONC 33.3 g/dl (32.0-37.0); MEAN CORPUSCULAR VOLUME 89.4 fl (82.0-101.0); NUCLEATED RED BLOOD CELLS% 1.1 /100WBC (0.0-0.0); PLATELET COUNT 55 10^3/UL (140-415); POSITIVE DIFF @See below; RED BLOOD COUNT 3.12 10^6/ul (4.70-6.10)
[2017-07-20 08:07] LABS: ADD MAN DIFF? YES
[2017-07-20 08:47] LABS: ANION GAP 15 (8-16); BLOOD UREA NITROGEN 23 mg/dl (7-20); CALCIUM 8.9 mg/dl (8.4-10.2); CARBON DIOXIDE 26 mmol/L (21-31); CHLORIDE 104 mmol/L (97-110); CREATININE 1.03 mg/dl (0.61-1.24); GLUCOSE 118 mg/dl (70-220); MAGNESIUM 1.7 mg/dl (1.7-2.5); PHOSPHORUS 4.2 mg/dl (2.5-4.9); POTASSIUM 4.4 mmol/L (3.5-5.1); SODIUM 141 mmol/L (135-144)
[2017-07-20] MEDS: LORATADINE 10 MG TAB PO (08:54)
[2017-07-20] MEDS: ESCITALOPRAM 10 MG TAB PO (08:55)
[2017-07-20] MEDS: PREGABALIN 50 MG CAP PO (08:55)
[2017-07-20] MEDS: FUROSEMIDE 20 MG TAB PO (08:55)
[2017-07-20] MEDS: METOPROLOL 25 MG TAB PO ×2 (08:55→20:36)
[2017-07-20] MEDS: LINAGLIPTIN 5 MG TABLET PO (08:56)
[2017-07-20] MEDS: SENNA TAB PO ×2 (08:56→20:34)
[2017-07-20] MEDS: DRONABINOL 2.5 MG CAP PO ×2 (08:56→20:34)
[2017-07-20 10:30] LABS: ANISOCYTOSIS 2+ (0-0); BAND NEUTROPHILS #M 0.1 10^3/ul (0.0-0.6); BAND NEUTROPHILS % (M) 7 % (0-4); EOSINOPHILS % (M) 1 % (0-7); ERYTHROBLAST% (NRBC) (M) 1 % (0-0); GIANT THROMBO% (M) 8 % (0-0); LYMPHOCYTES #M 0.5 10^3/ul (0.8-2.9); LYMPHOCYTES % (M) 20 % (15-51); METAMYELOCYTES %M 2 % (0-0); MICROCYTOSIS 2+ (0-0); MONOCYTE #M 0.1 10^3/ul (0.3-0.9); MONOCYTES % (M) 4 % (0-11); MYELOCYTES % (M) 2 % (0-0); PLATELET ESTIMATE SIG DECREASED; POIKILOCYTOSIS 1+ (0-0); POLYCHROMASIA 1+ (0-0); SEG NEUT #M 1.7 10^3/ul (1.6-7.5); SEGMENTED NEUTROPHILS (M) % 64 % (39-77); TEAR DROP CELLS 1+ (0-0)
[2017-07-20] MEDS ORDERED: VANCOMYCIN IV PER PHARMACY XX (14:30)
[2017-07-20] MEDS: VANCOMYCIN 1.25 GM in SOD CHLORIDE 0.9% 250 ML IVPB (16:28)
[2017-07-20] MEDS: LIDOCAINE 1% (MDV) 10 ML INJ (17:39)
[2017-07-20 18:43] LABS: FLD MN% 98.6 %; FLD PMN% 1.4 %; FLD RBC 3000 /uL; FLD WBC 360 /cmm
[2017-07-20 19:50] LABS: FLD CLARITY HAZY; FLD COLOR YELLOW
[2017-07-20 19:50] LABS: FLD TYPE PLEURAL
[2017-07-20] MEDS: TAMSULOSIN (SR) 0.4 MG CAP PO (20:34)
[2017-07-20] MEDS: INSULIN GLARGINE [LANtus] 3 ML PEN SC (20:37)
[2017-07-21] MEDS: VANCOMYCIN 750 MG in DEXTROSE 5% 150 ML IVPB ×2 (04:05→15:55)
[2017-07-21] MEDS: PANTOPRAZOLE (EC) 40 MG TAB PO (05:49)
[2017-07-21] MEDS: PIPER-TAZO 3.375 GM IV (PMX) 100 ML IVPB ×2 (05:49→13:22)
[2017-07-21] MEDS: PREGABALIN 50 MG CAP PO (08:48)
[2017-07-21] MEDS: FUROSEMIDE 20 MG TAB PO (08:49)
[2017-07-21] MEDS: LORATADINE 10 MG TAB PO (08:49)
[2017-07-21] MEDS: SENNA TAB PO ×2 (08:49→21:43)
[2017-07-21] MEDS: ESCITALOPRAM 10 MG TAB PO (08:49)
[2017-07-21] MEDS: LINAGLIPTIN 5 MG TABLET PO (08:49)
[2017-07-21] MEDS: DRONABINOL 2.5 MG CAP PO ×2 (08:49→21:00)
[2017-07-21] MEDS: PONATINIB PO ×2 (08:50→09:38)
[2017-07-21] MEDS: METOPROLOL 25 MG TAB PO ×2 (08:50→21:43)
[2017-07-21] MEDS: INSULIN ASPART [NOVOLOG] 3 ML PEN SC ×3 (08:55→19:03)
[2017-07-21 12:08] LABS: ADD MAN DIFF? NO
[2017-07-21 12:15] LABS: ABNORMAL IP MESSAGE 1; BASOPHILS % 0.3 % (0.0-2.0); EOSINOPHILS % 0.9 % (0.0-7.0); HEMATOCRIT 26.9 % (42.0-52.0); HEMOGLOBIN 9.2 g/dl (14.0-18.0); LYMPHOCYTES # 0.6 10^3/ul (0.8-2.9); LYMPHOCYTES % 17.1 % (15.0-51.0); MEAN CORPUSCULAR HEMOGLOBIN 30.6 pg (29.0-33.0); MEAN CORPUSCULAR HGB CONC 34.2 g/dl (32.0-37.0); MEAN CORPUSCULAR VOLUME 89.4 fl (82.0-101.0); MONOCYTE # 0.4 10^3/ul (0.3-0.9); MONOCYTES % 12.5 % (0.0-11.0); NEUTROPHIL # 2.1 10^3/ul (1.6-7.5); NEUTROPHILS % 66.1 % (39.0-77.0); NUCLEATED RED BLOOD CELLS% 1.2 /100WBC (0.0-0.0); POSITIVE DIFF @See below; RED BLOOD COUNT 3.01 10^6/ul (4.70-6.10); RED CELL DISTRIBUTION WIDTH 18.9 % (11.5-14.5)
[2017-07-21 12:15] LABS: WHITE BLOOD COUNT 3.2 10^3/ul (4.8-10.8)
[2017-07-21 12:34] LABS: PLATELET COUNT 59 10^3/UL (140-415)
[2017-07-21 12:45] LABS: ANION GAP 16 (8-16); BLOOD UREA NITROGEN 24 mg/dl (7-20); CARBON DIOXIDE 25 mmol/L (21-31); CHLORIDE 103 mmol/L (97-110); CREATININE 1.18 mg/dl (0.61-1.24); GLUCOSE 112 mg/dl (70-220); MAGNESIUM 1.7 mg/dl (1.7-2.5); PHOSPHORUS 4.6 mg/dl (2.5-4.9); POTASSIUM 4.2 mmol/L (3.5-5.1); SODIUM 140 mmol/L (135-144)
[2017-07-21] MEDS: TAMSULOSIN (SR) 0.4 MG CAP PO (21:43)
[2017-07-21] MEDS: INSULIN GLARGINE [LANtus] 3 ML PEN SC (21:45)
[2017-07-22 03:20] LABS: VANCOMYCIN,TROUGH 12.6 ug/ml (10.0-20.0)
[2017-07-22] MEDS: VANCOMYCIN 750 MG in DEXTROSE 5% 150 ML IVPB ×2 (03:59→16:42)
[2017-07-22 06:09] LABS: ADD MAN DIFF? NO
[2017-07-22 06:14] LABS: ABNORMAL IP MESSAGE 1; BASOPHILS % 0.7 % (0.0-2.0); EOSINOPHILS % 1.1 % (0.0-7.0); HEMATOCRIT 26.1 % (42.0-52.0); LYMPHOCYTES # 0.7 10^3/ul (0.8-2.9); MEAN CORPUSCULAR HEMOGLOBIN 30.8 pg (29.0-33.0); MEAN CORPUSCULAR HGB CONC 34.5 g/dl (32.0-37.0); MEAN CORPUSCULAR VOLUME 89.4 fl (82.0-101.0); MONOCYTE # 0.2 10^3/ul (0.3-0.9); MONOCYTES % 8.8 % (0.0-11.0); NEUTROPHIL # 1.6 10^3/ul (1.6-7.5); NEUTROPHILS % 59.7 % (39.0-77.0); NUCLEATED RED BLOOD CELLS # 0.1 10^3/ul (0.0-0.0); NUCLEATED RED BLOOD CELLS% 1.8 /100WBC (0.0-0.0); PLATELET COUNT 49 10^3/UL (140-415); POSITIVE DIFF @See below; RED BLOOD COUNT 2.92 10^6/ul (4.70-6.10); RED CELL DISTRIBUTION WIDTH 18.7 % (11.5-14.5)
[2017-07-22 06:14] LABS: WHITE BLOOD COUNT 2.7 10^3/ul (4.8-10.8)
[2017-07-22] MEDS: PANTOPRAZOLE (EC) 40 MG TAB PO (06:14)
[2017-07-22 06:47] LABS: ANION GAP 16 (8-16); BLOOD UREA NITROGEN 23 mg/dl (7-20); CALCIUM 8.5 mg/dl (8.4-10.2); CARBON DIOXIDE 23 mmol/L (21-31); CHLORIDE 106 mmol/L (97-110); CREATININE 1.21 mg/dl (0.61-1.24); GLUCOSE 147 mg/dl (70-220); MAGNESIUM 1.6 mg/dl (1.7-2.5); PHOSPHORUS 4.6 mg/dl (2.5-4.9); POTASSIUM 4.1 mmol/L (3.5-5.1); SODIUM 141 mmol/L (135-144)
[2017-07-22] MEDS: INSULIN ASPART [NOVOLOG] 3 ML PEN SC ×3 (09:11→18:45)
[2017-07-22] MEDS: PONATINIB PO (09:11)
[2017-07-22] MEDS: ESCITALOPRAM 10 MG TAB PO (09:12)
[2017-07-22] MEDS: SENNA TAB PO ×2 (09:12→20:23)
[2017-07-22] MEDS: FUROSEMIDE 20 MG TAB PO (09:12)
[2017-07-22] MEDS: LINAGLIPTIN 5 MG TABLET PO (09:13)
[2017-07-22] MEDS: DRONABINOL 2.5 MG CAP PO ×2 (09:13→20:23)
[2017-07-22] MEDS: PREGABALIN 50 MG CAP PO (09:13)
[2017-07-22] MEDS: METOPROLOL 25 MG TAB PO ×2 (09:13→20:27)
[2017-07-22] MEDS: LORATADINE 10 MG TAB PO (09:13)
[2017-07-22] MEDS: TAMSULOSIN (SR) 0.4 MG CAP PO (20:23)
[2017-07-22] MEDS: INSULIN GLARGINE [LANtus] 3 ML PEN SC (22:23)
[2017-07-23] MEDS: VANCOMYCIN 750 MG in DEXTROSE 5% 150 ML IVPB ×2 (03:10→15:46)
[2017-07-23] MEDS: PANTOPRAZOLE (EC) 40 MG TAB PO (05:40)
[2017-07-23 06:12] LABS: CREATININE 1.18 mg/dl (0.61-1.24)
[2017-07-23 06:12] LABS: BLOOD UREA NITROGEN 27 mg/dl (7-20)
[2017-07-23] MEDS: INSULIN ASPART [NOVOLOG] 3 ML PEN SC ×3 (07:50→17:55)
[2017-07-23] MEDS: LINAGLIPTIN 5 MG TABLET PO (09:00)
[2017-07-23] MEDS: METOPROLOL 25 MG TAB PO ×2 (09:00→21:44)
[2017-07-23] MEDS: PREGABALIN 50 MG CAP PO (09:00)
[2017-07-23] MEDS: PONATINIB PO (09:00)
[2017-07-23] MEDS: SENNA TAB PO ×2 (09:00→21:43)
[2017-07-23] MEDS: FUROSEMIDE 20 MG TAB PO (09:00)
[2017-07-23] MEDS: LORATADINE 10 MG TAB PO (09:48)
[2017-07-23] MEDS: DRONABINOL 2.5 MG CAP PO ×2 (09:48→21:41)
[2017-07-23] MEDS: ESCITALOPRAM 10 MG TAB PO (09:48)
[2017-07-23] MEDS ORDERED: hydrALAzine 20 MG INJ IV (19:30)
[2017-07-23] MEDS ORDERED: ONDANSETRON 4 MG INJ IV (19:30)
[2017-07-23] MEDS ORDERED: MEPERIDINE 25 MG INJ IV (19:30)
[2017-07-23] MEDS ORDERED: OXYCODONE/ACETAMINOPHEN (5/325) TAB PO (19:30)
[2017-07-23] MEDS ORDERED: LABETALOL HCL 20MG INJ IV (19:30)
[2017-07-23] MEDS ORDERED: METOCLOPRAMIDE 10 MG INJ IV (19:30)
[2017-07-23] MEDS ORDERED: DIPHENHYDRAMINE 50 MG INJ IV (19:30)
[2017-07-23] MEDS ORDERED: HYDROmorphONE (0.2 MG/ML) 10ML SYG IV ×3 (19:30)
[2017-07-23] MEDS ORDERED: EPHEDrine SULFATE 50 MG/5 ML SYG IV (19:30)
[2017-07-23] MEDS ORDERED: FENTAnyl 50 MCG/ML VIAL IV ×3 (19:30)
[2017-07-23] MEDS ORDERED: MIDAZOLAM 1 MG/ML 2 ML INJ (19:38)
[2017-07-23] MEDS ORDERED: FENTAnyl 50 MCG/ML VIAL (19:38)
[2017-07-23] MEDS: LIDOCAINE 1% (MDV) 20 ML INJ (19:43)
[2017-07-23] MEDS ORDERED: METOCLOPRAMIDE 10 MG INJ (19:44)
[2017-07-23] MEDS ORDERED: ONDANSETRON 4 MG INJ (19:44)
[2017-07-23] MEDS ORDERED: DEXAMETHASONE 4 MG/ML 1 ML INJ (19:45)
[2017-07-23] MEDS: INSULIN GLARGINE [LANtus] 3 ML PEN SC (21:40)
[2017-07-23] MEDS: TAMSULOSIN (SR) 0.4 MG CAP PO (21:41)
[2017-07-23 22:13] LABS: TYPE AND SCREEN 1 1
[2017-07-24] MEDS: VANCOMYCIN 750 MG in DEXTROSE 5% 150 ML IVPB (03:35)
[2017-07-24 05:37] LABS: WHITE BLOOD COUNT 3.2 10^3/ul (4.8-10.8)
[2017-07-24 05:37] LABS: ABNORMAL IP MESSAGE 1; ADD MAN DIFF? NO; BASOPHILS % 0.3 % (0.0-2.0); HEMATOCRIT 24.8 % (42.0-52.0); HEMOGLOBIN 8.2 g/dl (14.0-18.0); LYMPHOCYTES # 0.4 10^3/ul (0.8-2.9); MEAN CORPUSCULAR HEMOGLOBIN 29.9 pg (29.0-33.0); MEAN CORPUSCULAR HGB CONC 33.1 g/dl (32.0-37.0); MEAN CORPUSCULAR VOLUME 90.5 fl (82.0-101.0); MONOCYTE # 0.2 10^3/ul (0.3-0.9); NEUTROPHIL # 2.6 10^3/ul (1.6-7.5); NUCLEATED RED BLOOD CELLS% 0.9 /100WBC (0.0-0.0); POSITIVE DIFF @See below; RED BLOOD COUNT 2.74 10^6/ul (4.70-6.10); RED CELL DISTRIBUTION WIDTH 18.6 % (11.5-14.5)
[2017-07-24 05:49] LABS: MEAN PLATELET VOLUME 13.7 fl (7.4-10.4)
[2017-07-24 05:50] LABS: LYMPHOCYTES % 11.3 % (15.0-51.0)
[2017-07-24 05:51] LABS: PLATELET COUNT 84 10^3/UL (140-415)
[2017-07-24 06:03] LABS: ANION GAP 16 (8-16); BLOOD UREA NITROGEN 26 mg/dl (7-20); CALCIUM 8.9 mg/dl (8.4-10.2); CARBON DIOXIDE 23 mmol/L (21-31); CHLORIDE 108 mmol/L (97-110); CREATININE 0.97 mg/dl (0.61-1.24); GLUCOSE 195 mg/dl (70-220); MAGNESIUM 1.8 mg/dl (1.7-2.5); PHOSPHORUS 3.9 mg/dl (2.5-4.9); POTASSIUM 4.9 mmol/L (3.5-5.1); SODIUM 142 mmol/L (135-144)
[2017-07-24] MEDS: PANTOPRAZOLE (EC) 40 MG TAB PO (06:23)
[2017-07-24] MEDS: SENNA TAB PO (08:57)
[2017-07-24] MEDS: ESCITALOPRAM 10 MG TAB PO (08:57)
[2017-07-24] MEDS: LINAGLIPTIN 5 MG TABLET PO (08:58)
[2017-07-24] MEDS: METOPROLOL 25 MG TAB PO (08:59)
[2017-07-24] MEDS: LORATADINE 10 MG TAB PO (08:59)
[2017-07-24] MEDS: PONATINIB PO (08:59)
[2017-07-24] MEDS: FUROSEMIDE 20 MG TAB PO (08:59)
[2017-07-24] MEDS: DRONABINOL 2.5 MG CAP PO (09:00)
[2017-07-24] MEDS: INSULIN ASPART [NOVOLOG] 3 ML PEN SC (09:01)
[2017-07-24] MEDS: PREGABALIN 50 MG CAP PO (09:04)
== END 2017-07-24 13:29 | disposition home or self-care (01) | DRG 853 ==
LOC: MS1 07-21 17:20 → E/R 00:16 → MS4 03:33
PROC: 02PY03Z Removal of Infusion Device from Great Vessel, Open Approach (ICD-10-PCS; principal; 2017-07-23 19:30)
PROC: 0JB60ZZ Excision of Chest Subcutaneous Tissue and Fascia, Open Approach (ICD-10-PCS; 2017-07-23 19:30)
PROC: 0W993ZX Drainage of Right Pleural Cavity, Percutaneous Approach, Diagnostic (ICD-10-PCS; 2017-07-23 19:33)
PROC: 30233R1 Transfusion of Nonautologous Platelets into Peripheral Vein, Percutaneous Approach (ICD-10-PCS; 2017-07-23 19:33)
PROC: 30233N1 Transfusion of Nonautologous Red Blood Cells into Peripheral Vein, Percutaneous Approach (ICD-10-PCS; 2017-07-23 19:33)
DX: A41.9 Sepsis, unspecified organism (principal); J18.9 Pneumonia, unspecified organism; J96.01 Acute respiratory failure with hypoxia; D61.810 Antineoplastic chemotherapy induced pancytopenia; J86.9 Pyothorax without fistula; C92.00 Acute myeloblastic leukemia, not having achieved remission; N39.0 Urinary tract infection, site not specified; I50.32 Chronic diastolic (congestive) heart failure; R64 Cachexia; T82.7XXA Infection and inflammatory reaction due to other cardiac and vascular devices, implants and grafts, initial encounter; E11.9 Type 2 diabetes mellitus without complications; I25.10 Atherosclerotic heart disease of native coronary artery without angina pectoris; N40.0 Benign prostatic hyperplasia without lower urinary tract symptoms; E78.5 Hyperlipidemia, unspecified; D63.0 Anemia in neoplastic disease; F17.210 Nicotine dependence, cigarettes, uncomplicated; I11.0 Hypertensive heart disease with heart failure; B96.20 Unspecified Escherichia coli [E. coli] as the cause of diseases classified elsewhere; Y83.8 Other surgical procedures as the cause of abnormal reaction of the patient, or of later complication, without mention of misadventure at the time of the procedure; Y92.019 Unspecified place in single-family (private) house as the place of occurrence of the external cause; Z68.24 Body mass index [BMI] 24.0-24.9, adult; Z79.4 Long term (current) use of insulin; Z95.5 Presence of coronary angioplasty implant and graft
CPT/HCPCS: 32555; 36415; 36430; 71045; 80048; 80053; 80202; 81003; 82565; 82962; 83605; 83735; 84100; 84484; 84520; 85025; 85610; 85730; 86850; 86900; 86901; 86920; 87040; 87070; 87086; 87102; 87116; 88104; 88305; 89051; 93005; 99285-25

== ENCOUNTER 2017-08-23 09:13 | Inpatient (IN) | payer MEDICARE, BC ==
[2017-08-23 10:58] LABS: ADD MAN DIFF? NO
[2017-08-23 11:00] LABS: ABNORMAL IP MESSAGE 1; BASOPHILS % 0.4 % (0.0-2.0); EOSINOPHILS % 0.7 % (0.0-7.0); HEMATOCRIT 24.4 % (42.0-52.0); HEMOGLOBIN 7.9 g/dl (14.0-18.0); LYMPHOCYTES # 0.3 10^3/ul (0.8-2.9); LYMPHOCYTES % 12.1 % (15.0-51.0); MEAN CORPUSCULAR HEMOGLOBIN 31.1 pg (29.0-33.0); MEAN CORPUSCULAR HGB CONC 32.4 g/dl (32.0-37.0); MEAN CORPUSCULAR VOLUME 96.1 fl (82.0-101.0); MONOCYTE # 0.2 10^3/ul (0.3-0.9); MONOCYTES % 6.8 % (0.0-11.0); NEUTROPHIL # 2.2 10^3/ul (1.6-7.5); NEUTROPHILS % 77.2 % (39.0-77.0); NUCLEATED RED BLOOD CELLS% 0.7 /100WBC (0.0-0.0); PLATELET COUNT 86 10^3/UL (140-415); POSITIVE DIFF @See below; RED BLOOD COUNT 2.54 10^6/ul (4.70-6.10); RED CELL DISTRIBUTION WIDTH 17.7 % (11.5-14.5)
[2017-08-23 11:00] LABS: WHITE BLOOD COUNT 2.8 10^3/ul (4.8-10.8)
[2017-08-23 11:19] LABS: ALANINE AMINOTRANSFERASE 25 IU/L (13-69); ALBUMIN 3.3 g/dl (3.3-4.9); ALBUMIN/GLOBULIN RATIO 1.22; ALKALINE PHOSPHATASE 93 IU/L (42-121); ANION GAP 16 (8-16); ASPARTATE AMINO TRANSFERASE 17 IU/L (15-46); BILIRUBIN,INDIRECT 0.4 mg/dl (0-1.1); BILIRUBIN,TOTAL 0.4 mg/dl (0.2-1.3); BLOOD UREA NITROGEN 22 mg/dl (7-20); CALCIUM 8.4 mg/dl (8.4-10.2); CARBON DIOXIDE 25 mmol/L (21-31); CHLORIDE 104 mmol/L (97-110); CREATININE 0.97 mg/dl (0.61-1.24); GLUCOSE 234 mg/dl (70-220); POTASSIUM 4.8 mmol/L (3.5-5.1); SODIUM 140 mmol/L (135-144)
[2017-08-23 11:29] LABS: B-TYPE NATRIURETIC PEPTIDE 10100 PG/ML (0-125); TROPONIN-I 0.012 ng/ml (0.00-0.12)
[2017-08-23] MEDS: CEFEPIME 1GM/50 ML (PMX) 50 ML IVPB (11:55)
[2017-08-23] MEDS: INSULIN ASPART [NOVOLOG] 3 ML PEN SC ×5 (12:00→20:27)
[2017-08-23] MEDS ORDERED: VANCOMYCIN IV PER PHARMACY XX (12:00)
[2017-08-23 12:28] LABS: LACTIC ACID 1.1 mmol/L (0.5-2.0)
[2017-08-23] MEDS ORDERED: DIPHENHYDRAMINE 50 MG INJ (12:28)
[2017-08-23] MEDS: DIPHENHYDRAMINE 50 MG INJ IV (12:34)
[2017-08-23] MEDS: FUROSEMIDE 20 MG INJ IV (12:36)
[2017-08-23] MEDS ORDERED: ACETAMINOPHEN 325 MG TAB PO (13:00)
[2017-08-23] MEDS: FUROSEMIDE 40 MG INJ IV (13:00)
[2017-08-23] MEDS ORDERED: DEXTROSE 50% 50 ML SYRINGE IV ×2 (13:00)
[2017-08-23] MEDS ORDERED: GLUCOSE GEL 15 GRAM TUBE PO ×2 (13:00)
[2017-08-23] MEDS ORDERED: ONDANSETRON 4 MG INJ IV (13:00)
[2017-08-23] MEDS ORDERED: GLUCOSE GEL 15 GRAM TUBE BUCCAL (13:00)
[2017-08-23] MEDS ORDERED: GLUCAGON 1 MG INJ IM (13:00)
[2017-08-23] MEDS: VANCOMYCIN 1 GM (PMX) 250 ML IVPB (13:35)
[2017-08-23] MEDS ORDERED: ERTAPENEM SODIUM 1 GM in SOD CHLORIDE 0.9% 100 ML IVPB (14:00)
[2017-08-23] MEDS: LEVOFLOXACIN 500MG/D5W (PMX) 100 ML IVPB (15:57)
[2017-08-23 16:13] LABS: LACTIC ACID 0.8 mmol/L (0.5-2.0)
[2017-08-23 17:00] LABS: ADD UMIC NO; UR ASCORBIC ACID NEGATIVE (NEGATIVE); UR BILIRUBIN (Dip) NEGATIVE (NEGATIVE); UR BLOOD (Dip) NEGATIVE (NEGATIVE); UR CLARITY CLEAR (CLEAR); UR COLOR STRAW (YELLOW); UR GLUCOSE (Dip) NEGATIVE (NEGATIVE); UR KETONES (Dip) NEGATIVE (NEGATIVE); UR LEUKOCYTE ESTERASE (Dip) NEGATIVE Leu/ul (NEGATIVE); UR NITRITE (Dip) NEGATIVE (NEGATIVE); UR SPECIFIC GRAVITY (Dip) 1.006 (1.003-1.030); UR TOTAL PROTEIN (Dip) NEGATIVE (NEGATIVE); UR UROBILINOGEN (Dip) NEGATIVE (NEGATIVE)
[2017-08-23 17:21] LABS: SODIUM,URINE RANDOM 111 mmol/L (30-90)
[2017-08-23 17:23] LABS: CREATININE,URINE RANDOM 20.84 mg/dl (20-370)
[2017-08-23 19:13] LABS: TROPONIN-I < 0.012 ng/ml (0.00-0.12)
[2017-08-23] MEDS: LACTOBACILLUS RHAMNOSUS CAP PO (20:24)
[2017-08-23] MEDS: TAMSULOSIN (SR) 0.4 MG CAP PO (20:24)
[2017-08-23] MEDS: SENNA TAB PO (20:24)
[2017-08-23] MEDS: METOPROLOL 25 MG TAB PO (20:25)
[2017-08-23] MEDS: DRONABINOL 2.5 MG CAP PO (20:36)
[2017-08-23] MEDS: INSULIN GLARGINE [LANtus] 3 ML PEN SC (20:58)
[2017-08-23] MEDS: VANCOMYCIN 750 MG in DEXTROSE 5% 150 ML IVPB (21:26)
[2017-08-24] MEDS ORDERED: ALBUTEROL/IPRATROPIUM (NEB) 3 ML AMP HHN (00:30)
[2017-08-24] MEDS: IPRATROPIUM (NEB) 0.5 MG/2.5 ML AMP HHN ×3 (01:29→19:53)
[2017-08-24 01:32] LABS: TROPONIN-I 0.013 ng/ml (0.00-0.12)
[2017-08-24] MEDS: LORATADINE 10 MG TAB PO (09:00)
[2017-08-24 09:07] LABS: ADD MAN DIFF? NO
[2017-08-24 09:17] LABS: ABNORMAL IP MESSAGE 1; BASOPHILS % 0.3 % (0.0-2.0); EOSINOPHILS % 0.8 % (0.0-7.0); HEMOGLOBIN 8.1 g/dl (14.0-18.0); LYMPHOCYTES # 0.7 10^3/ul (0.8-2.9); LYMPHOCYTES % 17.4 % (15.0-51.0); MEAN CORPUSCULAR HGB CONC 32.4 g/dl (32.0-37.0); MEAN CORPUSCULAR VOLUME 95.8 fl (82.0-101.0); MONOCYTE # 0.3 10^3/ul (0.3-0.9); MONOCYTES % 7.8 % (0.0-11.0); NEUTROPHIL # 2.7 10^3/ul (1.6-7.5); NEUTROPHILS % 69.8 % (39.0-77.0); NUCLEATED RED BLOOD CELLS # 0.1 10^3/ul (0.0-0.0); NUCLEATED RED BLOOD CELLS% 1.3 /100WBC (0.0-0.0); PLATELET COUNT 89 10^3/UL (140-415); POSITIVE DIFF @See below; RED BLOOD COUNT 2.61 10^6/ul (4.70-6.10); RED CELL DISTRIBUTION WIDTH 18.2 % (11.5-14.5)
[2017-08-24 09:17] LABS: WHITE BLOOD COUNT 3.8 10^3/ul (4.8-10.8)
[2017-08-24] MEDS: FUROSEMIDE 20 MG INJ IV (09:23)
[2017-08-24] MEDS: CYANOCOBALAMIN 500 MCG TAB PO (09:23)
[2017-08-24] MEDS: SENNA TAB PO ×2 (09:25→21:00)
[2017-08-24] MEDS: LACTOBACILLUS RHAMNOSUS CAP PO ×2 (09:25→21:41)
[2017-08-24] MEDS: METOPROLOL 25 MG TAB PO ×2 (09:25→21:00)
[2017-08-24] MEDS: ESCITALOPRAM 10 MG TAB PO (09:27)
[2017-08-24] MEDS: LINAGLIPTIN 5 MG TABLET PO (09:28)
[2017-08-24 09:36] LABS: ANION GAP 13 (8-16); BLOOD UREA NITROGEN 24 mg/dl (7-20); CALCIUM 8.4 mg/dl (8.4-10.2); CARBON DIOXIDE 26 mmol/L (21-31); CHLORIDE 107 mmol/L (97-110); CREATININE 1.06 mg/dl (0.61-1.24); GLUCOSE 144 mg/dl (70-220); MAGNESIUM 1.6 mg/dl (1.7-2.5); PHOSPHORUS 3.6 mg/dl (2.5-4.9); POTASSIUM 4.5 mmol/L (3.5-5.1); SODIUM 141 mmol/L (135-144)
[2017-08-24] MEDS: INSULIN ASPART [NOVOLOG] 3 ML PEN SC ×7 (09:36→21:00)
[2017-08-24 09:43] LABS: TROPONIN-I 0.015 ng/ml (0.00-0.12)
[2017-08-24] MEDS: PREGABALIN 25 MG CAP PO (11:42)
[2017-08-24] MEDS: DRONABINOL 2.5 MG CAP PO ×2 (11:42→21:41)
[2017-08-24] MEDS: VANCOMYCIN 750 MG in DEXTROSE 5% 150 ML IVPB (11:44)
[2017-08-24 14:09] LABS: INR 1.03; PROTIME 13.6 Sec (11.9-14.9); PT RATIO 1.1
[2017-08-24] MEDS: MEROPENEM 500MG/50 ML (PMX) 50 ML IVPB ×2 (14:34→21:44)
[2017-08-24 15:41] LABS: CREATININE, RANDOM URINE 25 mg/dL (20-370); MICROALBUMIN 0.4 mg/dL; MICROALBUMIN/CREATININE RATIO 16 (<30)
[2017-08-24] MEDS: LIDOCAINE 1% (MDV) 10 ML INJ ×2 (17:54→18:02)
[2017-08-24] MEDS: INSULIN GLARGINE [LANtus] 3 ML PEN SC (21:00)
[2017-08-24] MEDS: TAMSULOSIN (SR) 0.4 MG CAP PO (21:40)
[2017-08-25] MEDS: IPRATROPIUM (NEB) 0.5 MG/2.5 ML AMP HHN ×4 (02:48→21:20)
[2017-08-25] MEDS: LEVOFLOXACIN 500 MG TAB PO (06:13)
[2017-08-25] MEDS: MEROPENEM 500MG/50 ML (PMX) 50 ML IVPB (06:14)
[2017-08-25] MEDS: INSULIN ASPART [NOVOLOG] 3 ML PEN SC ×8 (08:00→21:00)
[2017-08-25] MEDS: LACTOBACILLUS RHAMNOSUS CAP PO ×2 (08:38→21:32)
[2017-08-25] MEDS: LINAGLIPTIN 5 MG TABLET PO (08:38)
[2017-08-25] MEDS: ESCITALOPRAM 10 MG TAB PO (08:38)
[2017-08-25] MEDS: LORATADINE 10 MG TAB PO (08:38)
[2017-08-25] MEDS: PREGABALIN 25 MG CAP PO (08:38)
[2017-08-25] MEDS: CYANOCOBALAMIN 500 MCG TAB PO (08:38)
[2017-08-25] MEDS: DRONABINOL 2.5 MG CAP PO ×2 (08:39→21:31)
[2017-08-25] MEDS: METOPROLOL 25 MG TAB PO ×2 (08:41→21:32)
[2017-08-25] MEDS: FUROSEMIDE 20 MG INJ IV (08:41)
[2017-08-25] MEDS: SENNA TAB PO ×2 (08:52→21:00)
[2017-08-25 09:53] LABS: ADD MAN DIFF? NO
[2017-08-25 09:56] LABS: ABNORMAL IP MESSAGE 1; BASOPHILS % 0.3 % (0.0-2.0); EOSINOPHILS % 0.5 % (0.0-7.0); HEMATOCRIT 24.4 % (42.0-52.0); HEMOGLOBIN 7.9 g/dl (14.0-18.0); LYMPHOCYTES # 0.5 10^3/ul (0.8-2.9); LYMPHOCYTES % 14.4 % (15.0-51.0); MEAN CORPUSCULAR HEMOGLOBIN 30.7 pg (29.0-33.0); MEAN CORPUSCULAR HGB CONC 32.4 g/dl (32.0-37.0); MEAN CORPUSCULAR VOLUME 94.9 fl (82.0-101.0); MEAN PLATELET VOLUME 13.3 fl (7.4-10.4); MONOCYTE # 0.3 10^3/ul (0.3-0.9); MONOCYTES % 8.6 % (0.0-11.0); NEUTROPHIL # 2.8 10^3/ul (1.6-7.5); NEUTROPHILS % 73.5 % (39.0-77.0); NUCLEATED RED BLOOD CELLS% 1.1 /100WBC (0.0-0.0); PLATELET COUNT 83 10^3/UL (140-415); POSITIVE DIFF @See below; RED BLOOD COUNT 2.57 10^6/ul (4.70-6.10)
[2017-08-25 09:56] LABS: WHITE BLOOD COUNT 3.7 10^3/ul (4.8-10.8)
[2017-08-25 10:21] LABS: ANION GAP 17 (8-16); BLOOD UREA NITROGEN 27 mg/dl (7-20); CALCIUM 9.1 mg/dl (8.4-10.2); CARBON DIOXIDE 25 mmol/L (21-31); CHLORIDE 101 mmol/L (97-110); CREATININE 1.17 mg/dl (0.61-1.24); GLUCOSE 145 mg/dl (70-220); MAGNESIUM 1.6 mg/dl (1.7-2.5); PHOSPHORUS 4.2 mg/dl (2.5-4.9); POTASSIUM 4.4 mmol/L (3.5-5.1); SODIUM 139 mmol/L (135-144)
[2017-08-25] MEDS: INSULIN GLARGINE [LANtus] 3 ML PEN SC (21:00)
[2017-08-25] MEDS: TAMSULOSIN (SR) 0.4 MG CAP PO (21:32)
[2017-08-26] MEDS: IPRATROPIUM (NEB) 0.5 MG/2.5 ML AMP HHN ×4 (02:33→20:06)
[2017-08-26] MEDS: LEVOFLOXACIN 500 MG TAB PO (05:29)
[2017-08-26 05:44] LABS: ADD MAN DIFF? NO
[2017-08-26 05:46] LABS: ABNORMAL IP MESSAGE 1; BASOPHILS % 0.3 % (0.0-2.0); EOSINOPHILS % 0.6 % (0.0-7.0); HEMATOCRIT 24.6 % (42.0-52.0); HEMOGLOBIN 8.1 g/dl (14.0-18.0); LYMPHOCYTES # 0.8 10^3/ul (0.8-2.9); MEAN CORPUSCULAR HEMOGLOBIN 31.5 pg (29.0-33.0); MEAN CORPUSCULAR HGB CONC 32.9 g/dl (32.0-37.0); MEAN CORPUSCULAR VOLUME 95.7 fl (82.0-101.0); MEAN PLATELET VOLUME 12.5 fl (7.4-10.4); MONOCYTE # 0.3 10^3/ul (0.3-0.9); MONOCYTES % 8.6 % (0.0-11.0); NEUTROPHIL # 2.2 10^3/ul (1.6-7.5); NEUTROPHILS % 63.7 % (39.0-77.0); NUCLEATED RED BLOOD CELLS% 0.9 /100WBC (0.0-0.0); PLATELET COUNT 72 10^3/UL (140-415); POSITIVE DIFF @See below; RED BLOOD COUNT 2.57 10^6/ul (4.70-6.10); RED CELL DISTRIBUTION WIDTH 17.9 % (11.5-14.5)
[2017-08-26 05:46] LABS: WHITE BLOOD COUNT 3.4 10^3/ul (4.8-10.8)
[2017-08-26 06:17] LABS: ANION GAP 12 (8-16); BLOOD UREA NITROGEN 33 mg/dl (7-20); CALCIUM 8.8 mg/dl (8.4-10.2); CARBON DIOXIDE 28 mmol/L (21-31); CHLORIDE 105 mmol/L (97-110); CREATININE 1.22 mg/dl (0.61-1.24); GLUCOSE 129 mg/dl (70-220); MAGNESIUM 1.7 mg/dl (1.7-2.5); PHOSPHORUS 4.7 mg/dl (2.5-4.9); POTASSIUM 4.8 mmol/L (3.5-5.1); SODIUM 140 mmol/L (135-144)
[2017-08-26] MEDS: INSULIN ASPART [NOVOLOG] 3 ML PEN SC ×7 (08:00→22:27)
[2017-08-26] MEDS: PREGABALIN 25 MG CAP PO (08:15)
[2017-08-26] MEDS: SENNA TAB PO ×2 (08:16→22:27)
[2017-08-26] MEDS: CYANOCOBALAMIN 500 MCG TAB PO (08:16)
[2017-08-26] MEDS: METOPROLOL 25 MG TAB PO ×2 (08:16→22:28)
[2017-08-26] MEDS: DRONABINOL 2.5 MG CAP PO ×2 (08:16→22:28)
[2017-08-26] MEDS: LORATADINE 10 MG TAB PO (08:17)
[2017-08-26] MEDS: ESCITALOPRAM 10 MG TAB PO (08:17)
[2017-08-26] MEDS: LACTOBACILLUS RHAMNOSUS CAP PO ×2 (08:17→22:27)
[2017-08-26] MEDS: ICLUSIG PO (08:18)
[2017-08-26] MEDS: LINAGLIPTIN 5 MG TABLET PO (08:21)
[2017-08-26] MEDS: FUROSEMIDE 20 MG TAB PO (09:19)
[2017-08-26 22:23] LABS: IMMEDIATE SPIN CROSSMATCH 1 1
[2017-08-26] MEDS: TAMSULOSIN (SR) 0.4 MG CAP PO (22:28)
[2017-08-26] MEDS: INSULIN GLARGINE [LANtus] 3 ML PEN SC (22:37)
[2017-08-27] MEDS: IPRATROPIUM (NEB) 0.5 MG/2.5 ML AMP HHN ×2 (01:19→07:35)
[2017-08-27 07:26] LABS: ADD MAN DIFF? NO
[2017-08-27 07:29] LABS: ABNORMAL IP MESSAGE 1; BASOPHILS % 0.6 % (0.0-2.0); EOSINOPHILS % 0.8 % (0.0-7.0); LYMPHOCYTES # 0.6 10^3/ul (0.8-2.9); LYMPHOCYTES % 17.4 % (15.0-51.0); MEAN CORPUSCULAR HEMOGLOBIN 31.3 pg (29.0-33.0); MEAN CORPUSCULAR HGB CONC 33.3 g/dl (32.0-37.0); MEAN CORPUSCULAR VOLUME 93.8 fl (82.0-101.0); MEAN PLATELET VOLUME 12.9 fl (7.4-10.4); MONOCYTE # 0.2 10^3/ul (0.3-0.9); MONOCYTES % 6.7 % (0.0-11.0); NEUTROPHIL # 2.5 10^3/ul (1.6-7.5); NEUTROPHILS % 69.7 % (39.0-77.0); NUCLEATED RED BLOOD CELLS% 0.8 /100WBC (0.0-0.0); PLATELET COUNT 82 10^3/UL (140-415); POSITIVE DIFF @See below; RED BLOOD COUNT 2.88 10^6/ul (4.70-6.10); RED CELL DISTRIBUTION WIDTH 17.7 % (11.5-14.5)
[2017-08-27 07:29] LABS: WHITE BLOOD COUNT 3.6 10^3/ul (4.8-10.8)
[2017-08-27] MEDS: INSULIN ASPART [NOVOLOG] 3 ML PEN SC ×2 (08:00→08:34)
[2017-08-27] MEDS: DRONABINOL 2.5 MG CAP PO (08:28)
[2017-08-27] MEDS: SENNA TAB PO (08:29)
[2017-08-27] MEDS: LEVOFLOXACIN 500 MG TAB PO (08:29)
[2017-08-27] MEDS: CYANOCOBALAMIN 500 MCG TAB PO (08:29)
[2017-08-27] MEDS: FUROSEMIDE 20 MG TAB PO (08:29)
[2017-08-27] MEDS: LISINOPRIL 5 MG TAB PO (08:29)
[2017-08-27] MEDS: PREGABALIN 25 MG CAP PO (08:29)
[2017-08-27] MEDS: LACTOBACILLUS RHAMNOSUS CAP PO (08:29)
[2017-08-27] MEDS: LINAGLIPTIN 5 MG TABLET PO (08:29)
[2017-08-27] MEDS: ESCITALOPRAM 10 MG TAB PO (08:30)
[2017-08-27] MEDS: METOPROLOL 25 MG TAB PO (08:30)
[2017-08-27] MEDS: LORATADINE 10 MG TAB PO (08:30)
[2017-08-27] MEDS: ICLUSIG PO (08:38)
== END 2017-08-27 12:53 | disposition home or self-care (01) | DRG 871 ==
LOC: E/R 09:13 → MS3 12:38 → MS4 23:08
PROC: 0W993ZX Drainage of Right Pleural Cavity, Percutaneous Approach, Diagnostic (ICD-10-PCS; principal; 2017-08-24)
DX: A41.9 Sepsis, unspecified organism (principal); J18.9 Pneumonia, unspecified organism; J96.01 Acute respiratory failure with hypoxia; D61.810 Antineoplastic chemotherapy induced pancytopenia; I50.23 Acute on chronic systolic (congestive) heart failure; C92.00 Acute myeloblastic leukemia, not having achieved remission; J90 Pleural effusion, not elsewhere classified; I11.0 Hypertensive heart disease with heart failure; I25.10 Atherosclerotic heart disease of native coronary artery without angina pectoris; E78.5 Hyperlipidemia, unspecified; I73.9 Peripheral vascular disease, unspecified; E11.40 Type 2 diabetes mellitus with diabetic neuropathy, unspecified; N40.0 Benign prostatic hyperplasia without lower urinary tract symptoms; F32.9 Major depressive disorder, single episode, unspecified
CPT/HCPCS: 36415; 36430; 71045; 76942; 80048; 80053; 81003; 82043; 82962; 83605; 83735; 83880; 84100; 84155; 84300; 84443; 84484; 85025; 85610; 86850; 86900; 86901; 86920; 87040; 87070; 87086; 87102; 87116; 93005; 93306; 94640; 94664; 96365; 96375; 99285-25

== ENCOUNTER 2017-09-23 11:40 | Inpatient (IN) | payer MEDICARE, BC ==
[2017-09-23] MEDS: FUROSEMIDE 20 MG INJ IV (13:34)
[2017-09-23 13:39] LABS: ABNORMAL IP MESSAGE 1; HEMATOCRIT 25.2 % (42.0-52.0); HEMOGLOBIN 8.2 g/dl (14.0-18.0); MEAN CORPUSCULAR HEMOGLOBIN 31.7 pg (29.0-33.0); MEAN CORPUSCULAR HGB CONC 32.5 g/dl (32.0-37.0); MEAN CORPUSCULAR VOLUME 97.3 fl (82.0-101.0); PLATELET COUNT 99 10^3/UL (140-415); POSITIVE DIFF @See below; RED BLOOD COUNT 2.59 10^6/ul (4.70-6.10); RED CELL DISTRIBUTION WIDTH 18.5 % (11.5-14.5)
[2017-09-23 13:39] LABS: WHITE BLOOD COUNT 2.8 10^3/ul (4.8-10.8)
[2017-09-23] MEDS: IPRATROPIUM (NEB) 0.5 MG/2.5 ML AMP INH (13:43)
[2017-09-23] MEDS: ALBUTEROL 0.5% (NEB) 2.5 MG/0.5 ML AMP INH (13:44)
[2017-09-23 13:45] LABS: ADD MAN DIFF? YES
[2017-09-23 13:56] LABS: ALANINE AMINOTRANSFERASE 19 IU/L (13-69); ALBUMIN 3.8 g/dl (3.3-4.9); ALBUMIN/GLOBULIN RATIO 1.15; ALKALINE PHOSPHATASE 85 IU/L (42-121); ANION GAP 16 (8-16); ASPARTATE AMINO TRANSFERASE 16 IU/L (15-46); BILIRUBIN,INDIRECT 0.6 mg/dl (0-1.1); BILIRUBIN,TOTAL 0.6 mg/dl (0.2-1.3); BLOOD UREA NITROGEN 24 mg/dl (7-20); CALCIUM 8.8 mg/dl (8.4-10.2); CARBON DIOXIDE 25 mmol/L (21-31); CHLORIDE 107 mmol/L (97-110); CREATININE 1.01 mg/dl (0.61-1.24); GLUCOSE 153 mg/dl (70-220); POTASSIUM 5.1 mmol/L (3.5-5.1); SODIUM 143 mmol/L (135-144); TOTAL PROTEIN 7.1 g/dl (6.1-8.1)
[2017-09-23 14:08] LABS: TROPONIN-I 0.048 ng/ml (0.000-0.120)
[2017-09-23 14:12] LABS: INR 1.04; PROTIME 13.7 Sec (11.9-14.9); PT RATIO 1.1
[2017-09-23 14:13] LABS: PARTIAL THROMBOPLASTIN TIME 34.5 Sec (25.0-35.0)
[2017-09-23 14:32] LABS: BAND NEUTROPHILS #M 0.1 10^3/ul (0.0-0.6); BAND NEUTROPHILS % (M) 6 % (0-4); BASOPHILS % (M) 2 % (0-2); EOSINOPHILS % (M) 1 % (0-7); GIANT THROMBO% (M) 6 % (0-0); HYPOCHROMASIA 1+ (0-0); LYMPHOCYTES #M 0.6 10^3/ul (0.8-2.9); LYMPHOCYTES % (M) 23 % (15-51); MICROCYTOSIS 1+ (0-0); MONOCYTES % (M) 3 % (0-11); PLATELET ESTIMATE DECREASED; POIKILOCYTOSIS 1+ (0-0); POLYCHROMASIA 1+ (0-0); RBC MORPHOLOGY COMMENT @See below; SEG NEUT #M 1.7 10^3/ul (1.6-7.5); SEGMENTED NEUTROPHILS (M) % 62 % (39-77); SMUDGE%M 5 % (0-0); WBC MORPHOLOGY COMMENT @See below
[2017-09-23 14:37] LABS: ADD UMIC NO; UR ASCORBIC ACID 40 mg/dL (NEGATIVE); UR BILIRUBIN (Dip) NEGATIVE (NEGATIVE); UR BLOOD (Dip) NEGATIVE (NEGATIVE); UR CLARITY CLEAR (CLEAR); UR COLOR YELLOW (YELLOW); UR GLUCOSE (Dip) 1+ mg/dL (NEGATIVE); UR KETONES (Dip) NEGATIVE (NEGATIVE); UR LEUKOCYTE ESTERASE (Dip) NEGATIVE Leu/ul (NEGATIVE); UR NITRITE (Dip) NEGATIVE (NEGATIVE); UR SPECIFIC GRAVITY (Dip) 1.013 (1.003-1.030); UR TOTAL PROTEIN (Dip) NEGATIVE (NEGATIVE); UR UROBILINOGEN (Dip) NEGATIVE (NEGATIVE)
[2017-09-23 16:30] LABS: LACTIC ACID 1.1 mmol/L (0.5-2.0)
[2017-09-23] MEDS ORDERED: ALBUTEROL/IPRATROPIUM (NEB) 3 ML AMP HHN (17:00)
[2017-09-23] MEDS ORDERED: GLUCAGON 1 MG INJ IM (17:30)
[2017-09-23] MEDS ORDERED: GLUCOSE GEL 15 GRAM TUBE BUCCAL (17:30)
[2017-09-23] MEDS ORDERED: GLUCOSE GEL 15 GRAM TUBE PO ×2 (17:30)
[2017-09-23] MEDS ORDERED: DEXTROSE 50% 50 ML SYRINGE IV ×2 (17:30)
[2017-09-23] MEDS ORDERED: ONDANSETRON 4 MG INJ IV (18:30)
[2017-09-23] MEDS: RANOLAZINE (SR) 500 MG TAB PO ×2 (18:43→21:09)
[2017-09-23] MEDS: DIGOXIN 500 MCG INJ IV (18:46)
[2017-09-23 19:16] LABS: LACTIC ACID 0.9 mmol/L (0.5-2.0)
[2017-09-23] MEDS: LEVOFLOXACIN 750MG/D5W (PMX) 150 ML IVPB (20:15)
[2017-09-23] MEDS: FUROSEMIDE 40 MG INJ IV (20:31)
[2017-09-23] MEDS: MEROPENEM 500MG/50 ML (PMX) 50 ML IVPB (20:32)
[2017-09-23] MEDS: INSULIN ASPART [NOVOLOG] 3 ML PEN SC (21:06)
[2017-09-23] MEDS: metFORMIN 500 MG TAB PO (21:09)
[2017-09-23] MEDS: PANTOPRAZOLE (EC) 40 MG TAB PO (21:09)
[2017-09-24] MEDS: ACETAMINOPHEN 325 MG TAB PO (00:23)
[2017-09-24] MEDS: ACCU-CHEK XX (01:51)
[2017-09-24] MEDS: PANTOPRAZOLE (EC) 40 MG TAB PO (06:19)
[2017-09-24] MEDS: FUROSEMIDE 40 MG INJ IV ×2 (06:19→18:04)
[2017-09-24] MEDS: MEROPENEM 500MG/50 ML (PMX) 50 ML IVPB ×3 (06:24→21:50)
[2017-09-24 06:55] LABS: WHITE BLOOD COUNT 2.1 10^3/ul (4.8-10.8)
[2017-09-24 06:55] LABS: ABNORMAL IP MESSAGE 1; HEMATOCRIT 23.7 % (42.0-52.0); HEMOGLOBIN 7.8 g/dl (14.0-18.0); MEAN CORPUSCULAR HEMOGLOBIN 31.8 pg (29.0-33.0); MEAN CORPUSCULAR HGB CONC 32.9 g/dl (32.0-37.0); MEAN CORPUSCULAR VOLUME 96.7 fl (82.0-101.0); MEAN PLATELET VOLUME 13.1 fl (7.4-10.4); PLATELET COUNT 78 10^3/UL (140-415); POSITIVE DIFF @See below; RED BLOOD COUNT 2.45 10^6/ul (4.70-6.10); RED CELL DISTRIBUTION WIDTH 18.2 % (11.5-14.5)
[2017-09-24 07:05] LABS: ADD MAN DIFF? YES
[2017-09-24 07:15] LABS: ANION GAP 14 (8-16); BLOOD UREA NITROGEN 26 mg/dl (7-20); CALCIUM 8.8 mg/dl (8.4-10.2); CARBON DIOXIDE 27 mmol/L (21-31); CHLORIDE 107 mmol/L (97-110); CREATININE 1.12 mg/dl (0.61-1.24); GLUCOSE 131 mg/dl (70-220); MAGNESIUM 1.9 mg/dl (1.7-2.5); PHOSPHORUS 5.1 mg/dl (2.5-4.9); POTASSIUM 4.9 mmol/L (3.5-5.1); SODIUM 143 mmol/L (135-144)
[2017-09-24 07:23] LABS: TROPONIN-I 0.061 ng/ml (0.000-0.120)
[2017-09-24] MEDS: INSULIN ASPART [NOVOLOG] 3 ML PEN SC ×4 (07:55→20:41)
[2017-09-24 09:03] LABS: ANISOCYTOSIS 1+ (0-0); BAND NEUTROPHILS #M 0.1 10^3/ul (0.0-0.6); BAND NEUTROPHILS % (M) 5 % (0-4); BASOPHILS % (M) 1 % (0-2); EOSINOPHILS % (M) 2 % (0-7); GIANT THROMBO% (M) 1 % (0-0); HYPOCHROMASIA 2+ (0-0); LYMPHOCYTES #M 0.1 10^3/ul (0.8-2.9); LYMPHOCYTES % (M) 6 % (15-51); MICROCYTOSIS 1+ (0-0); MONOCYTE #M 0.1 10^3/ul (0.3-0.9); MONOCYTES % (M) 6 % (0-11); PLATELET ESTIMATE DECREASED; POLYCHROMASIA 1+ (0-0); REACTIVE LYMPHOCYTES% (M) 4 % (0-0); SEG NEUT #M 1.6 10^3/ul (1.6-7.5); SEGMENTED NEUTROPHILS (M) % 76 % (39-77); SMUDGE%M 5 % (0-0); TARGET CELLS 3+ (0-0)
[2017-09-24] MEDS: LISINOPRIL 5 MG TAB PO (09:07)
[2017-09-24] MEDS: RANOLAZINE (SR) 500 MG TAB PO ×2 (09:07→20:40)
[2017-09-24] MEDS: metFORMIN 500 MG TAB PO ×2 (09:07→18:03)
[2017-09-24] MEDS: TAMSULOSIN (SR) 0.4 MG CAP PO (20:41)
[2017-09-25] MEDS: ACCU-CHEK XX (01:06)
[2017-09-25] MEDS: MEROPENEM 500MG/50 ML (PMX) 50 ML IVPB ×3 (05:36→22:08)
[2017-09-25] MEDS: PANTOPRAZOLE (EC) 40 MG TAB PO (05:36)
[2017-09-25] MEDS: FUROSEMIDE 40 MG INJ IV ×2 (05:36→22:08)
[2017-09-25] MEDS: RANOLAZINE (SR) 500 MG TAB PO ×2 (08:12→20:15)
[2017-09-25] MEDS: metFORMIN 500 MG TAB PO ×2 (08:12→17:20)
[2017-09-25] MEDS: LISINOPRIL 5 MG TAB PO ×3 (08:14→08:26)
[2017-09-25] MEDS: INSULIN ASPART [NOVOLOG] 3 ML PEN SC ×4 (08:20→20:16)
[2017-09-25 08:59] LABS: AADO2 Arterial 30.2 mmHg (7.0-24.0); Allen Test ACCEPTAB; Arterial Base Excess -1.6 mmol/L (-3.0-3); Arterial Blood Gas Oxygen Sat 98.8 mmHG (95.0-100.0); Arterial COHb 0.6 % (0.0-3.0); Arterial HCO3 22.3 mmol/L (22.0-26.0); Arterial MetHb 0.2 % (0.0-1.5); Arterial Total Hemglobin 8.1 g/dl (12.0-18.0); Arterial pCO2 33.9 mmhg (35-45); MODE NASAL CANNULA; Site Right Radial
[2017-09-25 09:07] LABS: WHITE BLOOD COUNT 1.9 10^3/ul (4.8-10.8)
[2017-09-25 09:07] LABS: ABNORMAL IP MESSAGE 1; HEMATOCRIT 24.8 % (42.0-52.0); HEMOGLOBIN 7.9 g/dl (14.0-18.0); MEAN CORPUSCULAR HEMOGLOBIN 30.5 pg (29.0-33.0); MEAN CORPUSCULAR HGB CONC 31.9 g/dl (32.0-37.0); MEAN CORPUSCULAR VOLUME 95.8 fl (82.0-101.0); NUCLEATED RED BLOOD CELLS% 1.1 /100WBC (0.0-0.0); PLATELET COUNT 86 10^3/UL (140-415); POSITIVE DIFF @See below; RED BLOOD COUNT 2.59 10^6/ul (4.70-6.10); RED CELL DISTRIBUTION WIDTH 18.1 % (11.5-14.5)
[2017-09-25 09:09] LABS: ADD MAN DIFF? YES
[2017-09-25 09:25] LABS: ANION GAP 15 (8-16); BLOOD UREA NITROGEN 29 mg/dl (7-20); CARBON DIOXIDE 28 mmol/L (21-31); CHLORIDE 105 mmol/L (97-110); CREATININE 1.14 mg/dl (0.61-1.24); GLUCOSE 140 mg/dl (70-220); MAGNESIUM 1.8 mg/dl (1.7-2.5); PHOSPHORUS 5.1 mg/dl (2.5-4.9); POTASSIUM 4.6 mmol/L (3.5-5.1); SODIUM 143 mmol/L (135-144)
[2017-09-25 10:31] LABS: ANISOCYTOSIS 2+ (0-0); BAND NEUTROPHILS #M 0.1 10^3/ul (0.0-0.6); BAND NEUTROPHILS % (M) 10 % (0-4); BASOPHILS % (M) 3 % (0-2); EOSINOPHILS % (M) 4 % (0-7); ERYTHROBLAST% (NRBC) (M) 1 % (0-0); GIANT THROMBO% (M) 1 % (0-0); LYMPHOCYTES #M 0.3 10^3/ul (0.8-2.9); LYMPHOCYTES % (M) 21 % (15-51); MICROCYTOSIS 2+ (0-0); MONOCYTES % (M) 4 % (0-11); PLATELET ESTIMATE DECREASED; POIKILOCYTOSIS 1+ (0-0); POLYCHROMASIA 3+ (0-0); REACTIVE LYMPHOCYTES% (M) 1 % (0-0); SEG NEUT #M 1.1 10^3/ul (1.6-7.5); SEGMENTED NEUTROPHILS (M) % 57 % (39-77); SMUDGE%M 4 % (0-0)
[2017-09-25] MEDS: DRONABINOL 2.5 MG CAP PO (17:18)
[2017-09-25] MEDS: TAMSULOSIN (SR) 0.4 MG CAP PO (20:15)
[2017-09-26] MEDS: ACCU-CHEK XX (02:00)
[2017-09-26] MEDS: PANTOPRAZOLE (EC) 40 MG TAB PO (05:53)
[2017-09-26] MEDS: FUROSEMIDE 40 MG INJ IV ×3 (05:53→15:06)
[2017-09-26] MEDS: MEROPENEM 500MG/50 ML (PMX) 50 ML IVPB (05:54)
[2017-09-26 06:54] LABS: WHITE BLOOD COUNT 1.8 10^3/ul (4.8-10.8)
[2017-09-26 06:54] LABS: ABNORMAL IP MESSAGE 1; HEMATOCRIT 24.4 % (42.0-52.0); MEAN CORPUSCULAR HEMOGLOBIN 31.3 pg (29.0-33.0); MEAN CORPUSCULAR HGB CONC 32.8 g/dl (32.0-37.0); MEAN CORPUSCULAR VOLUME 95.3 fl (82.0-101.0); MEAN PLATELET VOLUME 12.9 fl (7.4-10.4); PLATELET COUNT 89 10^3/UL (140-415); POSITIVE DIFF @See below; RED BLOOD COUNT 2.56 10^6/ul (4.70-6.10); RED CELL DISTRIBUTION WIDTH 17.9 % (11.5-14.5)
[2017-09-26 07:12] LABS: ANION GAP 12 (8-16); BLOOD UREA NITROGEN 26 mg/dl (7-20); CALCIUM 8.9 mg/dl (8.4-10.2); CARBON DIOXIDE 30 mmol/L (21-31); CHLORIDE 105 mmol/L (97-110); CREATININE 1.14 mg/dl (0.61-1.24); GLUCOSE 128 mg/dl (70-220); MAGNESIUM 1.7 mg/dl (1.7-2.5); PHOSPHORUS 4.8 mg/dl (2.5-4.9); POTASSIUM 4.4 mmol/L (3.5-5.1); SODIUM 143 mmol/L (135-144)
[2017-09-26 07:23] LABS: ADD MAN DIFF? YES
[2017-09-26] MEDS: DRONABINOL 2.5 MG CAP PO ×3 (08:04→17:05)
[2017-09-26] MEDS: RANOLAZINE (SR) 500 MG TAB PO ×2 (08:04→20:20)
[2017-09-26] MEDS: metFORMIN 500 MG TAB PO ×2 (08:04→17:05)
[2017-09-26 08:41] LABS: ANISOCYTOSIS 1+ (0-0); BAND NEUTROPHILS % (M) 3 % (0-4); BASOPHILS % (M) 3 % (0-2); GIANT THROMBO% (M) 2 % (0-0); LYMPHOCYTES #M 0.3 10^3/ul (0.8-2.9); LYMPHOCYTES % (M) 21 % (15-51); METAMYELOCYTES %M 1 % (0-0); MONOCYTES % (M) 5 % (0-11); MYELOCYTES % (M) 1 % (0-0); OVALOCYTES 1+ (0-0); PLATELET ESTIMATE DECREASED; PLATELET MORPHOLOGY COMMENT @See below; POIKILOCYTOSIS 1+ (0-0); POLYCHROMASIA 1+ (0-0); PROMYELOCYTES % (M) 1 % (0-0); SEG NEUT #M 1.1 10^3/ul (1.6-7.5); SEGMENTED NEUTROPHILS (M) % 62 % (39-77); SMUDGE%M 4 % (0-0)
[2017-09-26] MEDS: INSULIN ASPART [NOVOLOG] 3 ML PEN SC ×4 (08:53→20:21)
[2017-09-26] MEDS: LISINOPRIL 5 MG TAB PO (09:00)
[2017-09-26] MEDS: TAMSULOSIN (SR) 0.4 MG CAP PO (20:21)
[2017-09-27] MEDS: ACCU-CHEK XX (02:00)
[2017-09-27] MEDS: PANTOPRAZOLE (EC) 40 MG TAB PO (05:36)
[2017-09-27] MEDS: FUROSEMIDE 40 MG INJ IV ×3 (05:39→20:55)
[2017-09-27 07:05] LABS: INR 0.95; PROTIME 12.8 Sec (11.9-14.9)
[2017-09-27 07:06] LABS: PARTIAL THROMBOPLASTIN TIME 35.7 Sec (25.0-35.0)
[2017-09-27] MEDS: DRONABINOL 2.5 MG CAP PO ×3 (08:47→17:08)
[2017-09-27] MEDS: metFORMIN 500 MG TAB PO ×2 (08:47→17:07)
[2017-09-27] MEDS: RANOLAZINE (SR) 500 MG TAB PO ×2 (08:47→20:55)
[2017-09-27] MEDS: LISINOPRIL 5 MG TAB PO ×2 (08:49→09:00)
[2017-09-27] MEDS: INSULIN ASPART [NOVOLOG] 3 ML PEN SC ×4 (09:29→20:48)
[2017-09-27] MEDS: LIDOCAINE 1% (MDV) 10 ML INJ (12:53)
[2017-09-27] MEDS: ACETAMINOPHEN 325 MG TAB PO (14:52)
[2017-09-27] MEDS ORDERED: HYDROCODONE/APAP (5/325) TAB PO (15:00)
[2017-09-27] MEDS: TAMSULOSIN (SR) 0.4 MG CAP PO (20:55)
[2017-09-28] MEDS: ACCU-CHEK XX (02:00)
[2017-09-28] MEDS: FUROSEMIDE 40 MG INJ IV ×2 (06:00→18:00)
[2017-09-28] MEDS: PANTOPRAZOLE (EC) 40 MG TAB PO (06:53)
[2017-09-28] MEDS: DRONABINOL 2.5 MG CAP PO ×3 (06:53→17:38)
[2017-09-28] MEDS: metFORMIN 500 MG TAB PO ×2 (07:55→17:38)
[2017-09-28 08:02] LABS: WHITE BLOOD COUNT 2.3 10^3/ul (4.8-10.8)
[2017-09-28 08:02] LABS: ABNORMAL IP MESSAGE 1; HEMATOCRIT 23.5 % (42.0-52.0); MEAN CORPUSCULAR HEMOGLOBIN 31.7 pg (29.0-33.0); MEAN CORPUSCULAR VOLUME 93.3 fl (82.0-101.0); MEAN PLATELET VOLUME 13.5 fl (7.4-10.4); PLATELET COUNT 84 10^3/UL (140-415); POSITIVE DIFF @See below; RED BLOOD COUNT 2.52 10^6/ul (4.70-6.10); RED CELL DISTRIBUTION WIDTH 17.7 % (11.5-14.5)
[2017-09-28 08:08] LABS: ADD MAN DIFF? YES
[2017-09-28] MEDS: INSULIN ASPART [NOVOLOG] 3 ML PEN SC ×4 (08:09→21:16)
[2017-09-28] MEDS: LISINOPRIL 5 MG TAB PO (09:00)
[2017-09-28] MEDS: RANOLAZINE (SR) 500 MG TAB PO ×2 (09:34→21:14)
[2017-09-28 10:02] LABS: ANISOCYTOSIS 2+ (0-0); BAND NEUTROPHILS % (M) 2 % (0-4); BASOPHILS % (M) 3 % (0-2); EOSINOPHILS % (M) 2 % (0-7); GIANT THROMBO% (M) 4 % (0-0); LYMPHOCYTES #M 0.6 10^3/ul (0.8-2.9); LYMPHOCYTES % (M) 29 % (15-51); METAMYELOCYTES %M 1 % (0-0); MICROCYTOSIS 2+ (0-0); MONOCYTES % (M) 3 % (0-11); PLATELET ESTIMATE DECREASED; POIKILOCYTOSIS 2+ (0-0); POLYCHROMASIA 3+ (0-0); REACTIVE LYMPHOCYTES% (M) 1 % (0-0); SEG NEUT #M 1.4 10^3/ul (1.6-7.5); SEGMENTED NEUTROPHILS (M) % 59 % (39-77); SMUDGE%M 4 % (0-0)
[2017-09-28 10:49] LABS: ANION GAP 14 (8-16); BLOOD UREA NITROGEN 42 mg/dl (7-20); CALCIUM 8.9 mg/dl (8.4-10.2); CARBON DIOXIDE 28 mmol/L (21-31); CHLORIDE 103 mmol/L (97-110); CREATININE 1.05 mg/dl (0.61-1.24); GLUCOSE 138 mg/dl (70-220); MAGNESIUM 1.7 mg/dl (1.7-2.5); PHOSPHORUS 4.5 mg/dl (2.5-4.9); POTASSIUM 4.2 mmol/L (3.5-5.1); SODIUM 141 mmol/L (135-144)
[2017-09-28 12:47] LABS: IMMEDIATE SPIN CROSSMATCH 1 2
[2017-09-28] MEDS: FUROSEMIDE 20 MG INJ IV ×2 (16:21→21:14)
[2017-09-28] MEDS: TAMSULOSIN (SR) 0.4 MG CAP PO (21:14)
[2017-09-29] MEDS: ACCU-CHEK XX (02:00)
[2017-09-29] MEDS: DRONABINOL 2.5 MG CAP PO (06:40)
[2017-09-29] MEDS: PANTOPRAZOLE (EC) 40 MG TAB PO (06:40)
[2017-09-29] MEDS: FUROSEMIDE 40 MG INJ IV (06:41)
[2017-09-29 07:05] LABS: WHITE BLOOD COUNT 2.6 10^3/ul (4.8-10.8)
[2017-09-29 07:05] LABS: ABNORMAL IP MESSAGE 1; HEMATOCRIT 29.3 % (42.0-52.0); MEAN CORPUSCULAR HEMOGLOBIN 30.8 pg (29.0-33.0); MEAN CORPUSCULAR HGB CONC 34.1 g/dl (32.0-37.0); MEAN CORPUSCULAR VOLUME 90.2 fl (82.0-101.0); MEAN PLATELET VOLUME 12.6 fl (7.4-10.4); PLATELET COUNT 73 10^3/UL (140-415); POSITIVE DIFF @See below; RED BLOOD COUNT 3.25 10^6/ul (4.70-6.10); RED CELL DISTRIBUTION WIDTH 17.1 % (11.5-14.5)
[2017-09-29 07:12] LABS: ADD MAN DIFF? YES
[2017-09-29] MEDS: INSULIN ASPART [NOVOLOG] 3 ML PEN SC (07:55)
[2017-09-29] MEDS: LISINOPRIL 5 MG TAB PO (07:55)
[2017-09-29] MEDS: RANOLAZINE (SR) 500 MG TAB PO (07:55)
[2017-09-29] MEDS: metFORMIN 500 MG TAB PO (07:55)
[2017-09-29] MEDS ORDERED: PATIENT'S OWN MEDICATION PO (09:00)
[2017-09-29 09:15] LABS: ANISOCYTOSIS 2+ (0-0); BAND NEUTROPHILS #M 0.5 10^3/ul (0.0-0.6); BAND NEUTROPHILS % (M) 21 % (0-4); BASOPHILS % (M) 1 % (0-2); EOSINOPHILS % (M) 1 % (0-7); GIANT THROMBO% (M) 1 % (0-0); LYMPHOCYTES #M 0.3 10^3/ul (0.8-2.9); LYMPHOCYTES % (M) 14 % (15-51); MICROCYTOSIS 2+ (0-0); MONOCYTE #M 0.3 10^3/ul (0.3-0.9); MONOCYTES % (M) 12 % (0-11); PLATELET ESTIMATE DECREASED; POIKILOCYTOSIS 1+ (0-0); POLYCHROMASIA 3+ (0-0); REACTIVE LYMPHOCYTES% (M) 1 % (0-0); SEG NEUT #M 1.3 10^3/ul (1.6-7.5); SEGMENTED NEUTROPHILS (M) % 50 % (39-77); SMUDGE%M 2 % (0-0)
[2017-09-29 11:06] LABS: PROCALCITONIN <0.10 ng/mL (<0.10)
== END 2017-09-29 10:35 | disposition home health service (06) | DRG 291 ==
LOC: TEL 09-25 21:26 → E/R 11:40 → TEL 18:15
PROC: 0W993ZZ Drainage of Right Pleural Cavity, Percutaneous Approach (ICD-10-PCS; principal; 2017-09-27)
PROC: 30233N1 Transfusion of Nonautologous Red Blood Cells into Peripheral Vein, Percutaneous Approach (ICD-10-PCS; 2017-09-28)
DX: I11.0 Hypertensive heart disease with heart failure (principal); D61.810 Antineoplastic chemotherapy induced pancytopenia; J18.9 Pneumonia, unspecified organism; C92.00 Acute myeloblastic leukemia, not having achieved remission; J90 Pleural effusion, not elsewhere classified; I50.23 Acute on chronic systolic (congestive) heart failure; E11.9 Type 2 diabetes mellitus without complications; Z79.4 Long term (current) use of insulin; I25.10 Atherosclerotic heart disease of native coronary artery without angina pectoris
CPT/HCPCS: 36415; 36430; 36600; 71045; 71250; 76604; 76942; 80048; 80053; 81003; 82803; 82962; 83605; 83735; 84100; 84145; 84484; 85025; 85610; 85730; 86850; 86900; 86901; 86920; 87040; 87070; 87081; 87086; 88104; 88305; 93005; 94644; 96374; 99285-25

== ENCOUNTER 2017-10-21 14:12 | Inpatient (IN) | payer MEDICARE, BC ==
[2017-10-21 16:10] LABS: ALANINE AMINOTRANSFERASE 59 IU/L (13-69); ALBUMIN 2.8 g/dl (3.3-4.9); ALBUMIN/GLOBULIN RATIO 0.96; ALKALINE PHOSPHATASE 181 IU/L (42-121); ANION GAP 13 (8-16); ASPARTATE AMINO TRANSFERASE 36 IU/L (15-46); BILIRUBIN,INDIRECT 0.7 mg/dl (0-1.1); BILIRUBIN,TOTAL 0.7 mg/dl (0.2-1.3); BLOOD UREA NITROGEN 28 mg/dl (7-20); CALCIUM 6.7 mg/dl (8.4-10.2); CARBON DIOXIDE 19 mmol/L (21-31); CHLORIDE 114 mmol/L (97-110); CREATININE 0.94 mg/dl (0.61-1.24); GLUCOSE 127 mg/dl (70-220); LIPASE 115 U/L (23-300); POTASSIUM 3.5 mmol/L (3.5-5.1); SODIUM 142 mmol/L (135-144); TOTAL PROTEIN 5.7 g/dl (6.1-8.1)
[2017-10-21 16:20] LABS: B-TYPE NATRIURETIC PEPTIDE 15300 PG/ML (0-125); TROPONIN-I 0.072 ng/ml (0.000-0.120)
[2017-10-21 16:26] LABS: ABNORMAL IP MESSAGE 1; HEMATOCRIT 22.9 % (42.0-52.0); HEMOGLOBIN 7.6 g/dl (14.0-18.0); MEAN CORPUSCULAR HGB CONC 33.2 g/dl (32.0-37.0); MEAN CORPUSCULAR VOLUME 93.5 fl (82.0-101.0); NUCLEATED RED BLOOD CELLS% 7.1 /100WBC (0.0-0.0); PLATELET COUNT 65 10^3/UL (140-415); POSITIVE DIFF @See below; RED BLOOD COUNT 2.45 10^6/ul (4.70-6.10)
[2017-10-21 16:26] LABS: WHITE BLOOD COUNT 4.2 10^3/ul (4.8-10.8)
[2017-10-21 16:31] LABS: ADD MAN DIFF? YES
[2017-10-21 16:44] LABS: PROTIME 14.4 Sec (11.9-14.9); PT RATIO 1.1
[2017-10-21 16:45] LABS: PARTIAL THROMBOPLASTIN TIME 29.1 Sec (25.0-35.0)
[2017-10-21 16:47] LABS: IMMEDIATE SPIN CROSSMATCH 1 2
[2017-10-21 18:35] LABS: ANISOCYTOSIS 3+ (0-0); BAND NEUTROPHILS % (M) 1 % (0-4); BASOPHIL #M 0.2 10^3/ul (0.0-0.0); BASOPHILS % (M) 6 % (0-2); EOSINOPHILS % (M) 1 % (0-7); ERYTHROBLAST% (NRBC) (M) 7 % (0-0); GIANT THROMBO% (M) 1 % (0-0); LYMPHOCYTES % (M) 26 % (15-51); METAMYELOCYTES %M 2 % (0-0); MICROCYTOSIS 2+ (0-0); MONOCYTE #M 0.4 10^3/ul (0.3-0.9); MONOCYTES % (M) 10 % (0-11); MYELOCYTES % (M) 2 % (0-0); PLATELET ESTIMATE DECREASED; POIKILOCYTOSIS 2+ (0-0); POLYCHROMASIA 2+ (0-0); SEG NEUT #M 1.8 10^3/ul (1.6-7.5); SEGMENTED NEUTROPHILS (M) % 44 % (39-77); SMUDGE%M 1 % (0-0)
[2017-10-22] MEDS: LORAZEPAM 2 MG INJ IV (00:15)
[2017-10-22] MEDS ORDERED: DEXTROSE 50% 50 ML SYRINGE IV ×2 (01:00)
[2017-10-22] MEDS ORDERED: ZOLPIDEM 5 MG TAB PO (01:00)
[2017-10-22] MEDS ORDERED: GLUCOSE GEL 15 GRAM TUBE PO ×2 (01:00)
[2017-10-22] MEDS ORDERED: NACL 0.9% 3 ML SYG IV (01:00)
[2017-10-22] MEDS ORDERED: GLUCOSE GEL 15 GRAM TUBE BUCCAL (01:00)
[2017-10-22] MEDS ORDERED: GLUCAGON 1 MG INJ IM (01:00)
[2017-10-22] MEDS ORDERED: NON-FORMULARY/PATIENT OWN MED (Dexlansoprazole (Dexilant) 60 MG) PO (01:00)
[2017-10-22] MEDS ORDERED: ONDANSETRON 4 MG INJ IV (01:00)
[2017-10-22] MEDS: FUROSEMIDE 40 MG INJ IV ×3 (01:51→17:34)
[2017-10-22] MEDS: ACCU-CHEK XX (01:58)
[2017-10-22] MEDS: ALBUTEROL/IPRATROPIUM (NEB) 3 ML AMP HHN ×2 (02:12→07:42)
[2017-10-22] MEDS: PANTOPRAZOLE 40 MG INJ IV (05:35)
[2017-10-22 05:41] LABS: AADO2 Arterial 103.3 mmHg (7.0-24.0); Allen Test ACCEPTAB; Arterial Base Excess -0.3 mmol/L (-3.0-3); Arterial Blood Gas Oxygen Sat 89.1 mmHG (95.0-100.0); Arterial COHb 0.4 % (0.0-3.0); Arterial Fraction of Oxyhgb 88.6 % (93.0-99.0); Arterial HCO3 23.5 mmol/L (22.0-26.0); Arterial MetHb 0.2 % (0.0-1.5); Arterial Total Hemglobin 10.6 g/dl (12.0-18.0); Arterial pCO2 35.3 mmhg (35-45); MODE NASAL CANNULA; Site Right Radial
[2017-10-22 06:00] LABS: WHITE BLOOD COUNT 4.4 10^3/ul (4.8-10.8)
[2017-10-22 06:00] LABS: ABNORMAL IP MESSAGE 1; HEMATOCRIT 29.4 % (42.0-52.0); HEMOGLOBIN 10.1 g/dl (14.0-18.0); MEAN CORPUSCULAR HEMOGLOBIN 31.3 pg (29.0-33.0); MEAN CORPUSCULAR HGB CONC 34.4 g/dl (32.0-37.0); NUCLEATED RED BLOOD CELLS% 7.7 /100WBC (0.0-0.0); PLATELET COUNT 62 10^3/UL (140-415); POSITIVE DIFF @See below; RED BLOOD COUNT 3.23 10^6/ul (4.70-6.10); RED CELL DISTRIBUTION WIDTH 17.2 % (11.5-14.5)
[2017-10-22 06:49] LABS: ADD MAN DIFF? YES
[2017-10-22] MEDS: [UNRECOGNIZED DRUG - REMARK] XX (07:30)
[2017-10-22] MEDS ORDERED: FUROSEMIDE 40 MG TAB PO (09:00)
[2017-10-22] MEDS: LEVOFLOXACIN 500MG/D5W (PMX) 100 ML IVPB (09:01)
[2017-10-22] MEDS: metFORMIN 500 MG TAB PO ×2 (09:02→21:06)
[2017-10-22] MEDS: DRONABINOL 2.5 MG CAP PO ×2 (09:03→21:06)
[2017-10-22] MEDS: METOPROLOL 25 MG TAB PO (09:03)
[2017-10-22] MEDS: RANOLAZINE (SR) 500 MG TAB PO ×2 (09:31→21:00)
[2017-10-22] MEDS: INSULIN ASPART [NOVOLOG] 3 ML PEN SC ×4 (09:37→21:00)
[2017-10-22 09:54] LABS: ANISOCYTOSIS 2+ (0-0); BAND NEUTROPHILS #M 0.2 10^3/ul (0.0-0.6); BAND NEUTROPHILS % (M) 6 % (0-4); BASOPHIL #M 0.4 10^3/ul (0.0-0.0); BASOPHILS % (M) 11 % (0-2); EOSINOPHILS % (M) 1 % (0-7); ERYTHROBLAST% (NRBC) (M) 4 % (0-0); GIANT THROMBO% (M) 7 % (0-0); LYMPHOCYTES #M 0.7 10^3/ul (0.8-2.9); LYMPHOCYTES % (M) 18 % (15-51); MICROCYTOSIS 2+ (0-0); MONOCYTE #M 0.9 10^3/ul (0.3-0.9); MONOCYTES % (M) 21 % (0-11); MYELOCYTES #M 0.1 10^3/ul (0.0-0.0); MYELOCYTES % (M) 4 % (0-0); PLATELET ESTIMATE DECREASED; POIKILOCYTOSIS 1+ (0-0); POLYCHROMASIA 3+ (0-0); PROMYELOCYTES #M 0.1 10^3/ul (0-0); PROMYELOCYTES % (M) 3 % (0-0); SEG NEUT #M 1.3 10^3/ul (1.6-7.5); SEGMENTED NEUTROPHILS (M) % 30 % (39-77); SMUDGE%M 9 % (0-0)
[2017-10-22] MEDS: LIDOCAINE 1% (MDV) 10 ML INJ (10:44)
[2017-10-22] MEDS: PONATINIB HCL PO (13:14)
[2017-10-22] MEDS: LISINOPRIL 5 MG TAB PO (15:56)
[2017-10-22 18:29] LABS: TROPONIN-I 0.081 ng/ml (0.000-0.120)
[2017-10-23 01:37] LABS: TROPONIN-I 0.081 ng/ml (0.000-0.120)
[2017-10-23] MEDS: ACCU-CHEK XX (02:00)
[2017-10-23] MEDS: FUROSEMIDE 40 MG INJ IV (05:35)
[2017-10-23] MEDS: PANTOPRAZOLE 40 MG INJ IV (05:35)
[2017-10-23 06:23] LABS: ADD MAN DIFF? NO
[2017-10-23 06:25] LABS: ABNORMAL IP MESSAGE 1; HEMATOCRIT 29.3 % (42.0-52.0); HEMOGLOBIN 9.8 g/dl (14.0-18.0); MEAN CORPUSCULAR HEMOGLOBIN 31.1 pg (29.0-33.0); MEAN CORPUSCULAR HGB CONC 33.4 g/dl (32.0-37.0); PLATELET COUNT 46 10^3/UL (140-415); POSITIVE DIFF @See below; RED BLOOD COUNT 3.15 10^6/ul (4.70-6.10); RED CELL DISTRIBUTION WIDTH 17.9 % (11.5-14.5)
[2017-10-23 06:50] LABS: ALANINE AMINOTRANSFERASE 50 IU/L (13-69); ALBUMIN 3.2 g/dl (3.3-4.9); ALBUMIN/GLOBULIN RATIO 1.28; ALKALINE PHOSPHATASE 196 IU/L (42-121); ANION GAP 15 (8-16); ASPARTATE AMINO TRANSFERASE 25 IU/L (15-46); BILIRUBIN,INDIRECT 0.8 mg/dl (0-1.1); BILIRUBIN,TOTAL 0.8 mg/dl (0.2-1.3); BLOOD UREA NITROGEN 30 mg/dl (7-20); CALCIUM 8.6 mg/dl (8.4-10.2); CARBON DIOXIDE 29 mmol/L (21-31); CHLORIDE 101 mmol/L (97-110); CREATININE 1.09 mg/dl (0.61-1.24); GLUCOSE 152 mg/dl (70-220); POTASSIUM 3.9 mmol/L (3.5-5.1); SODIUM 141 mmol/L (135-144); TOTAL PROTEIN 5.7 g/dl (6.1-8.1)
[2017-10-23 06:57] LABS: ANION GAP 15 (8-16); BLOOD UREA NITROGEN 30 mg/dl (7-20); CALCIUM 8.6 mg/dl (8.4-10.2); CARBON DIOXIDE 28 mmol/L (21-31); CHLORIDE 102 mmol/L (97-110); CREATININE 1.14 mg/dl (0.61-1.24); GLUCOSE 155 mg/dl (70-220); MAGNESIUM 1.8 mg/dl (1.7-2.5); PHOSPHORUS 3.6 mg/dl (2.5-4.9); POTASSIUM 3.9 mmol/L (3.5-5.1); SODIUM 141 mmol/L (135-144)
[2017-10-23 07:48] LABS: HEMOGLOBIN A1C 6.2 % (0-5.9)
[2017-10-23 08:35] LABS: ANISOCYTOSIS 2+ (0-0); BAND NEUTROPHILS #M 0.1 10^3/ul (0.0-0.6); BAND NEUTROPHILS % (M) 6 % (0-4); BASOPHIL #M 0.4 10^3/ul (0.0-0.0); BASOPHILS % (M) 16 % (0-2); EOSINOPHILS % (M) 1 % (0-7); ERYTHROBLAST% (NRBC) (M) 4 % (0-0); LYMPHOCYTES #M 0.6 10^3/ul (0.8-2.9); LYMPHOCYTES % (M) 21 % (15-51); METAMYELOCYTES %M 2 % (0-0); MICROCYTOSIS 2+ (0-0); MONOCYTE #M 0.2 10^3/ul (0.3-0.9); MONOCYTES % (M) 8 % (0-11); MYELOCYTES % (M) 1 % (0-0); PLATELET ESTIMATE DECREASED; POLYCHROMASIA 3+ (0-0); REACTIVE LYMPHOCYTES% (M) 2 % (0-0); SEG NEUT #M 1.1 10^3/ul (1.6-7.5); SEGMENTED NEUTROPHILS (M) % 36 % (39-77); SMUDGE%M 9 % (0-0)
[2017-10-23] MEDS: METOPROLOL (XL) 25 MG TAB PO (08:35)
[2017-10-23] MEDS: LISINOPRIL 5 MG TAB PO (08:35)
[2017-10-23] MEDS: RANOLAZINE (SR) 500 MG TAB PO ×2 (08:37→09:00)
[2017-10-23] MEDS: PONATINIB HCL PO ×2 (08:37→09:00)
[2017-10-23] MEDS: DRONABINOL 2.5 MG CAP PO ×2 (08:37→09:00)
[2017-10-23] MEDS: metFORMIN 500 MG TAB PO ×2 (08:37→09:00)
[2017-10-23] MEDS: INSULIN ASPART [NOVOLOG] 3 ML PEN SC ×2 (08:39→11:58)
== END 2017-10-23 15:50 | disposition home health service (06) | DRG 834 ==
LOC: TEL 17:44 → E/R 14:12 → MS4 10-22 02:57
PROVIDERS: Pediatrics
PROC: 30233N1 Transfusion of Nonautologous Red Blood Cells into Peripheral Vein, Percutaneous Approach (ICD-10-PCS; 2017-10-21)
PROC: 0W993ZX Drainage of Right Pleural Cavity, Percutaneous Approach, Diagnostic (ICD-10-PCS; principal; 2017-10-22)
DX: C92.00 Acute myeloblastic leukemia, not having achieved remission (principal); I50.43 Acute on chronic combined systolic (congestive) and diastolic (congestive) heart failure; D61.810 Antineoplastic chemotherapy induced pancytopenia; J96.00 Acute respiratory failure, unspecified whether with hypoxia or hypercapnia; I42.9 Cardiomyopathy, unspecified; J90 Pleural effusion, not elsewhere classified; I11.0 Hypertensive heart disease with heart failure; N40.0 Benign prostatic hyperplasia without lower urinary tract symptoms; I25.10 Atherosclerotic heart disease of native coronary artery without angina pectoris; E11.42 Type 2 diabetes mellitus with diabetic polyneuropathy; G89.4 Chronic pain syndrome; F32.9 Major depressive disorder, single episode, unspecified; E78.5 Hyperlipidemia, unspecified; Z79.4 Long term (current) use of insulin; Z79.84 Long term (current) use of oral hypoglycemic drugs; Z98.61 Coronary angioplasty status
CPT/HCPCS: 32555; 36415; 36430; 36600; 71045; 80048; 80053; 82803; 82962; 83036; 83690; 83735; 83880; 84100; 84484; 85025; 85610; 85730; 86850; 86900; 86901; 86920; 87081; 93005; 94640; 94664; 96374; 99285-25

== ENCOUNTER 2017-11-18 13:56 | Inpatient (IN) | payer MEDICARE, BC ==
[2017-11-18] MEDS: SODIUM CHLORIDE 0.9% 1L BAG IV* (14:59)
[2017-11-18 15:16] LABS: WHITE BLOOD COUNT 6.5 10^3/ul (4.8-10.8)
[2017-11-18 15:16] LABS: ABNORMAL IP MESSAGE 1; HEMATOCRIT 18.4 % (42.0-52.0); MEAN CORPUSCULAR HEMOGLOBIN 30.5 pg (29.0-33.0); MEAN CORPUSCULAR HGB CONC 32.6 g/dl (32.0-37.0); MEAN CORPUSCULAR VOLUME 93.4 fl (82.0-101.0); NUCLEATED RED BLOOD CELLS% 4.4 /100WBC (0.0-0.0); PLATELET COUNT 63 10^3/UL (140-415); POSITIVE DIFF @See below; RED BLOOD COUNT 1.97 10^6/ul (4.70-6.10)
[2017-11-18 15:32] LABS: ALANINE AMINOTRANSFERASE 14 IU/L (13-69); ALBUMIN 3.8 g/dl (3.3-4.9); ALBUMIN/GLOBULIN RATIO 1.26; ALKALINE PHOSPHATASE 115 IU/L (42-121); ANION GAP 16 (8-16); ASPARTATE AMINO TRANSFERASE 17 IU/L (15-46); BILIRUBIN,INDIRECT 0.8 mg/dl (0-1.1); BILIRUBIN,TOTAL 0.8 mg/dl (0.2-1.3); BLOOD UREA NITROGEN 38 mg/dl (7-20); CALCIUM 8.7 mg/dl (8.4-10.2); CARBON DIOXIDE 28 mmol/L (21-31); CHLORIDE 97 mmol/L (97-110); CREATININE 1.65 mg/dl (0.61-1.24); GLUCOSE 149 mg/dl (70-220); POTASSIUM 4.5 mmol/L (3.5-5.1); SODIUM 136 mmol/L (135-144); TOTAL PROTEIN 6.8 g/dl (6.1-8.1)
[2017-11-18 15:33] LABS: INR 0.98; PROTIME 13.1 Sec (11.9-14.9)
[2017-11-18 15:34] LABS: PARTIAL THROMBOPLASTIN TIME 37.6 Sec (25.0-35.0)
[2017-11-18 15:37] LABS: ADD MAN DIFF? YES
[2017-11-18 15:44] LABS: TROPONIN-I 0.084 ng/ml (0.000-0.120)
[2017-11-18] MEDS ORDERED: ONDANSETRON 4 MG INJ IV (16:00)
[2017-11-18] MEDS ORDERED: ACETAMINOPHEN 325 MG TAB PO (16:00)
[2017-11-18 16:29] LABS: ANISOCYTOSIS 3+ (0-0); BAND NEUTROPHILS #M 0.4 10^3/ul (0.0-0.6); BAND NEUTROPHILS % (M) 7 % (0-4); BASOPHIL #M 0.1 10^3/ul (0.0-0.0); BASOPHILS % (M) 3 % (0-2); EOSINOPHILS % (M) 1 % (0-7); ERYTHROBLAST% (NRBC) (M) 5 % (0-0); GIANT THROMBO% (M) 2 % (0-0); MICROCYTOSIS 3+ (0-0); PLATELET ESTIMATE DECREASED; POLYCHROMASIA 3+ (0-0); ROULEAU 3+ (0-0); SMUDGE%M 1 % (0-0)
[2017-11-18] MEDS ORDERED: MEROPENEM 1 GM/50ML(PMX) 50 ML IVPB (16:59)
[2017-11-18 19:31] LABS: B-TYPE NATRIURETIC PEPTIDE 13000 PG/ML (0-125)
[2017-11-18] MEDS: SOD CHLORIDE 0.9% 250 ML IV (19:36)
[2017-11-19 00:45] LABS: LACTIC ACID 0.7 mmol/L (0.5-2.0)
[2017-11-19 00:59] LABS: TROPONIN-I 0.068 ng/ml (0.000-0.120)
[2017-11-19 07:20] LABS: WHITE BLOOD COUNT 4.8 10^3/ul (4.8-10.8)
[2017-11-19 07:20] LABS: ABNORMAL IP MESSAGE 1; HEMATOCRIT 23.1 % (42.0-52.0); HEMOGLOBIN 7.7 g/dl (14.0-18.0); MEAN CORPUSCULAR HEMOGLOBIN 30.6 pg (29.0-33.0); MEAN CORPUSCULAR HGB CONC 33.3 g/dl (32.0-37.0); MEAN CORPUSCULAR VOLUME 91.7 fl (82.0-101.0); NUCLEATED RED BLOOD CELLS% 3.8 /100WBC (0.0-0.0); POSITIVE DIFF @See below; RED BLOOD COUNT 2.52 10^6/ul (4.70-6.10); RED CELL DISTRIBUTION WIDTH 17.6 % (11.5-14.5)
[2017-11-19 07:25] LABS: PLATELET COUNT 47 10^3/UL (140-415)
[2017-11-19 07:26] LABS: ADD MAN DIFF? YES
[2017-11-19 07:45] LABS: ANION GAP 12 (8-16); BLOOD UREA NITROGEN 33 mg/dl (7-20); CALCIUM 8.7 mg/dl (8.4-10.2); CARBON DIOXIDE 26 mmol/L (21-31); CHLORIDE 103 mmol/L (97-110); GLUCOSE 118 mg/dl (70-220); POTASSIUM 4.3 mmol/L (3.5-5.1); SODIUM 137 mmol/L (135-144)
[2017-11-19 07:55] LABS: TROPONIN-I 0.062 ng/ml (0.000-0.120)
[2017-11-19] MEDS ORDERED: METFORMIN HCL PO (07:55)
[2017-11-19] MEDS ORDERED: CANAGLIFLOZIN PO (07:55)
[2017-11-19] MEDS ORDERED: [UNRECOGNIZED DRUG - OTHER] PO (07:55)
[2017-11-19] MEDS ORDERED: ALBUTEROL/IPRATROPIUM (NEB) 3 ML AMP HHN (08:00)
[2017-11-19] MEDS: [UNRECOGNIZED DRUG - REMARK] XX ×2 (10:00→14:08)
[2017-11-19] MEDS: DRONABINOL 2.5 MG CAP PO ×2 (10:07→21:31)
[2017-11-19] MEDS: PANTOPRAZOLE (EC) 40 MG TAB PO (10:08)
[2017-11-19] MEDS ORDERED: ICLUSIG PO ×2 (11:00)
[2017-11-19 11:49] LABS: ANISOCYTOSIS 3+ (0-0); BAND NEUTROPHILS #M 0.5 10^3/ul (0.0-0.6); BAND NEUTROPHILS % (M) 12 % (0-4); BASOPHILS % (M) 2 % (0-2); BLAST% (M) 13.3 % (0-0); EOSINOPHILS % (M) 4 % (0-7); ERYTHROBLAST% (NRBC) (M) 2 % (0-0); LYMPHOCYTES #M 0.4 10^3/ul (0.8-2.9); LYMPHOCYTES % (M) 10 % (15-51); METAMYELOCYTES #M 0.2 10^3/ul (0.0-0.0); METAMYELOCYTES %M 6 % (0-0); MICROCYTOSIS 3+ (0-0); MONOCYTE #M 0.6 10^3/ul (0.3-0.9); MONOCYTES % (M) 14 % (0-11); MYELOCYTES % (M) 2 % (0-0); PLATELET ESTIMATE SIG DECREASED; POIKILOCYTOSIS 1+ (0-0); POLYCHROMASIA 3+ (0-0); PROMYELOCYTES % (M) 2 % (0-0); REACTIVE LYMPHOCYTES% (M) 1 % (0-0); SEG NEUT #M 1.7 10^3/ul (1.6-7.5); SEGMENTED NEUTROPHILS (M) % 34 % (39-77); SMUDGE%M 10 % (0-0)
[2017-11-19 13:05] LABS: ADD UMIC NO; UR ASCORBIC ACID NEGATIVE (NEGATIVE); UR BILIRUBIN (Dip) NEGATIVE (NEGATIVE); UR BLOOD (Dip) NEGATIVE (NEGATIVE); UR CLARITY CLEAR (CLEAR); UR COLOR YELLOW (YELLOW); UR GLUCOSE (Dip) 3+ mg/dL (NEGATIVE); UR KETONES (Dip) NEGATIVE (NEGATIVE); UR LEUKOCYTE ESTERASE (Dip) NEGATIVE Leu/ul (NEGATIVE); UR NITRITE (Dip) NEGATIVE (NEGATIVE); UR SPECIFIC GRAVITY (Dip) 1.011 (1.003-1.030); UR TOTAL PROTEIN (Dip) NEGATIVE (NEGATIVE); UR UROBILINOGEN (Dip) 2+ mg/dL (NEGATIVE)
[2017-11-19 13:15] LABS: CREATININE,URINE RANDOM 59.05 mg/dl (20-370)
[2017-11-19 13:15] LABS: SODIUM,URINE RANDOM 44 mmol/L (30-90)
[2017-11-19] MEDS ORDERED: GLUCOSE GEL 15 GRAM TUBE BUCCAL (15:00)
[2017-11-19] MEDS ORDERED: GLUCAGON 1 MG INJ IM (15:00)
[2017-11-19] MEDS ORDERED: DEXTROSE 50% 50 ML SYRINGE IV ×2 (15:00)
[2017-11-19] MEDS ORDERED: GLUCOSE GEL 15 GRAM TUBE PO ×2 (15:00)
[2017-11-19 16:08] LABS: MYELOCYTES % (M) 4 % (0-0)
[2017-11-19 16:09] LABS: METAMYELOCYTES #M 0.2 10^3/ul (0.0-0.0); METAMYELOCYTES %M 4 % (0-0); MONOCYTE #M 0.3 10^3/ul (0.3-0.9); MONOCYTES % (M) 6 % (0-11); MYELOCYTES #M 0.2 10^3/ul (0.0-0.0)
[2017-11-19 16:10] LABS: LYMPHOCYTES #M 1.1 10^3/ul (0.8-2.9); LYMPHOCYTES % (M) 18 % (15-51); SEG NEUT #M 2.4 10^3/ul (1.6-7.5); SEGMENTED NEUTROPHILS (M) % 36 % (39-77)
[2017-11-19] MEDS: metFORMIN 500 MG TAB PO (17:28)
[2017-11-19] MEDS: Insulin NOVOLOG SS MILD Algorithm (SS with meals and bedtime) SC ×2 (17:30→21:04)
[2017-11-19] MEDS ORDERED: INSULIN ASPART [NOVOLOG] 3 ML PEN SC (18:00)
[2017-11-20] MEDS: PANTOPRAZOLE (EC) 40 MG TAB PO (05:39)
[2017-11-20 05:54] LABS: ABNORMAL IP MESSAGE 1; HEMATOCRIT 21.5 % (42.0-52.0); HEMOGLOBIN 7.1 g/dl (14.0-18.0); MEAN CORPUSCULAR HEMOGLOBIN 30.1 pg (29.0-33.0); MEAN CORPUSCULAR VOLUME 91.1 fl (82.0-101.0); NUCLEATED RED BLOOD CELLS% 3.6 /100WBC (0.0-0.0); PLATELET COUNT 47 10^3/UL (140-415); POSITIVE DIFF @See below; RED BLOOD COUNT 2.36 10^6/ul (4.70-6.10); RED CELL DISTRIBUTION WIDTH 17.7 % (11.5-14.5)
[2017-11-20 05:54] LABS: WHITE BLOOD COUNT 4.4 10^3/ul (4.8-10.8)
[2017-11-20 06:02] LABS: ADD MAN DIFF? YES
[2017-11-20 06:17] LABS: ANION GAP 11 (8-16); BLOOD UREA NITROGEN 27 mg/dl (7-20); CALCIUM 8.5 mg/dl (8.4-10.2); CARBON DIOXIDE 26 mmol/L (21-31); CHLORIDE 102 mmol/L (97-110); CREATININE 1.34 mg/dl (0.61-1.24); GLUCOSE 138 mg/dl (70-220); MAGNESIUM 1.8 mg/dl (1.7-2.5); PHOSPHORUS 3.5 mg/dl (2.5-4.9); POTASSIUM 4.4 mmol/L (3.5-5.1); SODIUM 135 mmol/L (135-144)
[2017-11-20 08:02] LABS: ANISOCYTOSIS 2+ (0-0); BAND NEUTROPHILS #M 0.9 10^3/ul (0.0-0.6); BAND NEUTROPHILS % (M) 21 % (0-4); BASOPHIL #M 0.2 10^3/ul (0.0-0.0); BASOPHILS % (M) 5 % (0-2); EOSINOPHILS % (M) 6 % (0-7); ERYTHROBLAST% (NRBC) (M) 10 % (0-0); LYMPHOCYTES #M 0.4 10^3/ul (0.8-2.9); LYMPHOCYTES % (M) 11 % (15-51); MICROCYTOSIS 1+ (0-0); MONOCYTE #M 0.6 10^3/ul (0.3-0.9); MONOCYTES % (M) 15 % (0-11); MYELOCYTES #M 0.2 10^3/ul (0.0-0.0); MYELOCYTES % (M) 6 % (0-0); PLATELET ESTIMATE DECREASED; POLYCHROMASIA 3+ (0-0); SEG NEUT #M 1.1 10^3/ul (1.6-7.5); SEGMENTED NEUTROPHILS (M) % 23 % (39-77); SMUDGE%M 16 % (0-0)
[2017-11-20] MEDS: metFORMIN 500 MG TAB PO ×2 (08:11→17:18)
[2017-11-20] MEDS: ICLUSIG PO (08:12)
[2017-11-20] MEDS: Insulin NOVOLOG SS MILD Algorithm (SS with meals and bedtime) SC ×4 (08:12→21:00)
[2017-11-20] MEDS: DRONABINOL 2.5 MG CAP PO ×2 (08:21→21:48)
[2017-11-20] MEDS: LINAGLIPTIN 5 MG TABLET PO (09:44)
[2017-11-20 13:25] LABS: IMMEDIATE SPIN CROSSMATCH 1 6
[2017-11-20] MEDS: LEVOFLOXACIN 500 MG TAB PO (13:50)
[2017-11-20] MEDS: FUROSEMIDE 20 MG INJ IV (13:50)
[2017-11-21 05:48] LABS: ABNORMAL IP MESSAGE 1; HEMOGLOBIN 9.2 g/dl (14.0-18.0); MEAN CORPUSCULAR HGB CONC 32.9 g/dl (32.0-37.0); MEAN CORPUSCULAR VOLUME 88.3 fl (82.0-101.0); NUCLEATED RED BLOOD CELLS% 3.4 /100WBC (0.0-0.0); POSITIVE DIFF @See below; RED BLOOD COUNT 3.17 10^6/ul (4.70-6.10); RED CELL DISTRIBUTION WIDTH 17.4 % (11.5-14.5)
[2017-11-21 05:48] LABS: WHITE BLOOD COUNT 3.9 10^3/ul (4.8-10.8)
[2017-11-21] MEDS: LEVOFLOXACIN 500 MG TAB PO (05:56)
[2017-11-21] MEDS: PANTOPRAZOLE (EC) 40 MG TAB PO (05:56)
[2017-11-21 06:18] LABS: ADD MAN DIFF? YES; PLATELET COUNT 44 10^3/UL (140-415)
[2017-11-21 06:28] LABS: ANION GAP 13 (8-16); BLOOD UREA NITROGEN 23 mg/dl (7-20); CALCIUM 8.6 mg/dl (8.4-10.2); CARBON DIOXIDE 25 mmol/L (21-31); CHLORIDE 104 mmol/L (97-110); CREATININE 1.16 mg/dl (0.61-1.24); GLUCOSE 144 mg/dl (70-220); MAGNESIUM 1.9 mg/dl (1.7-2.5); PHOSPHORUS 3.8 mg/dl (2.5-4.9); POTASSIUM 4.5 mmol/L (3.5-5.1); SODIUM 137 mmol/L (135-144)
[2017-11-21] MEDS: metFORMIN 500 MG TAB PO ×2 (08:01→17:25)
[2017-11-21] MEDS: DRONABINOL 2.5 MG CAP PO ×2 (08:01→21:25)
[2017-11-21] MEDS: ICLUSIG PO (08:02)
[2017-11-21] MEDS: Insulin NOVOLOG SS MILD Algorithm (SS with meals and bedtime) SC ×4 (08:08→21:00)
[2017-11-21] MEDS: LINAGLIPTIN 5 MG TABLET PO (08:08)
[2017-11-21] MEDS: FUROSEMIDE 20 MG INJ IV (08:10)
[2017-11-21 10:49] LABS: ANISOCYTOSIS 2+ (0-0); BAND NEUTROPHILS #M 0.2 10^3/ul (0.0-0.6); BAND NEUTROPHILS % (M) 6 % (0-4); BASOPHIL #M 0.1 10^3/ul (0.0-0.0); BASOPHILS % (M) 4 % (0-2); EOSINOPHILS % (M) 2 % (0-7); ERYTHROBLAST% (NRBC) (M) 5 % (0-0); GIANT THROMBO% (M) 1 % (0-0); LYMPHOCYTES #M 0.5 10^3/ul (0.8-2.9); LYMPHOCYTES % (M) 13 % (15-51); METAMYELOCYTES %M 1 % (0-0); MICROCYTOSIS 1+ (0-0); MONOCYTE #M 0.9 10^3/ul (0.3-0.9); MONOCYTES % (M) 24 % (0-11); MYELOCYTES #M 0.1 10^3/ul (0.0-0.0); MYELOCYTES % (M) 5 % (0-0); OVALOCYTES 1+ (0-0); PLATELET ESTIMATE DECREASED; POIKILOCYTOSIS 1+ (0-0); POLYCHROMASIA 3+ (0-0); REACTIVE LYMPHOCYTES% (M) 1 % (0-0); SEG NEUT #M 1.3 10^3/ul (1.6-7.5); SEGMENTED NEUTROPHILS (M) % 32 % (39-77); SMUDGE%M 27 % (0-0)
[2017-11-22] MEDS: LEVOFLOXACIN 500 MG TAB PO (05:40)
[2017-11-22] MEDS: PANTOPRAZOLE (EC) 40 MG TAB PO (05:40)
[2017-11-22 05:49] LABS: ABNORMAL IP MESSAGE 1; HEMATOCRIT 27.3 % (42.0-52.0); HEMOGLOBIN 9.1 g/dl (14.0-18.0); MEAN CORPUSCULAR HEMOGLOBIN 29.8 pg (29.0-33.0); MEAN CORPUSCULAR HGB CONC 33.3 g/dl (32.0-37.0); MEAN CORPUSCULAR VOLUME 89.5 fl (82.0-101.0); PLATELET COUNT 41 10^3/UL (140-415); POSITIVE DIFF @See below; RED BLOOD COUNT 3.05 10^6/ul (4.70-6.10); RED CELL DISTRIBUTION WIDTH 17.4 % (11.5-14.5)
[2017-11-22 05:49] LABS: WHITE BLOOD COUNT 3.5 10^3/ul (4.8-10.8)
[2017-11-22 06:10] LABS: ADD MAN DIFF? YES
[2017-11-22 06:25] LABS: ANION GAP 13 (8-16); BLOOD UREA NITROGEN 24 mg/dl (7-20); CALCIUM 8.7 mg/dl (8.4-10.2); CARBON DIOXIDE 24 mmol/L (21-31); CHLORIDE 105 mmol/L (97-110); CREATININE 1.11 mg/dl (0.61-1.24); GLUCOSE 126 mg/dl (70-220); MAGNESIUM 1.9 mg/dl (1.7-2.5); PHOSPHORUS 3.9 mg/dl (2.5-4.9); POTASSIUM 4.5 mmol/L (3.5-5.1); SODIUM 137 mmol/L (135-144)
[2017-11-22] MEDS: Insulin NOVOLOG SS MILD Algorithm (SS with meals and bedtime) SC ×2 (07:49→12:23)
[2017-11-22 09:04] LABS: ANISOCYTOSIS 2+ (0-0); BAND NEUTROPHILS #M 0.2 10^3/ul (0.0-0.6); BAND NEUTROPHILS % (M) 6 % (0-4); BASOPHIL #M 0.1 10^3/ul (0.0-0.0); BASOPHILS % (M) 5 % (0-2); ERYTHROBLAST% (NRBC) (M) 2 % (0-0); GIANT THROMBO% (M) 1 % (0-0); LYMPHOCYTES #M 0.7 10^3/ul (0.8-2.9); LYMPHOCYTES % (M) 22 % (15-51); METAMYELOCYTES %M 1 % (0-0); MICROCYTOSIS 2+ (0-0); MONOCYTE #M 0.7 10^3/ul (0.3-0.9); MONOCYTES % (M) 20 % (0-11); MYELOCYTES #M 0.1 10^3/ul (0.0-0.0); MYELOCYTES % (M) 4 % (0-0); OVALOCYTES 1+ (0-0); PLATELET ESTIMATE DECREASED; POIKILOCYTOSIS 1+ (0-0); POLYCHROMASIA 2+ (0-0); SEGMENTED NEUTROPHILS (M) % 29 % (39-77); SMUDGE%M 18 % (0-0)
[2017-11-22] MEDS: metFORMIN 500 MG TAB PO (10:03)
[2017-11-22] MEDS: LISINOPRIL 5 MG TAB PO (10:03)
[2017-11-22] MEDS: FUROSEMIDE 20 MG INJ IV (10:04)
[2017-11-22] MEDS: LINAGLIPTIN 5 MG TABLET PO (10:04)
[2017-11-22] MEDS: ICLUSIG PO (10:05)
[2017-11-22] MEDS: DRONABINOL 2.5 MG CAP PO (10:42)
[2017-11-23] MEDS ORDERED: ICLUSIG PO (09:00)
[2017-12-05 14:04] LABS: CREATININE, RANDOM URINE 71 mg/dL (20-370); MICROALBUMIN 1.1 mg/dL; MICROALBUMIN/CREATININE RATIO 15 (<30)
== END 2017-11-22 13:00 | disposition home health service (06) | DRG 834 ==
LOC: MS2 11-19 14:16 → E/R 13:56 → TEL 15:53
PROC: 30233N1 Transfusion of Nonautologous Red Blood Cells into Peripheral Vein, Percutaneous Approach (ICD-10-PCS; 2017-11-18)
PROC: 30233N1 Transfusion of Nonautologous Red Blood Cells into Peripheral Vein, Percutaneous Approach (ICD-10-PCS; principal; 2017-11-19)
DX: C92.00 Acute myeloblastic leukemia, not having achieved remission (principal); I50.23 Acute on chronic systolic (congestive) heart failure; J96.00 Acute respiratory failure, unspecified whether with hypoxia or hypercapnia; I42.9 Cardiomyopathy, unspecified; D61.818 Other pancytopenia; I13.0 Hypertensive heart and chronic kidney disease with heart failure and stage 1 through stage 4 chronic kidney disease, or unspecified chronic kidney disease; N17.9 Acute kidney failure, unspecified; N39.0 Urinary tract infection, site not specified; I25.10 Atherosclerotic heart disease of native coronary artery without angina pectoris; N40.0 Benign prostatic hyperplasia without lower urinary tract symptoms; E78.5 Hyperlipidemia, unspecified; I95.9 Hypotension, unspecified; G62.9 Polyneuropathy, unspecified; F32.9 Major depressive disorder, single episode, unspecified; E11.22 Type 2 diabetes mellitus with diabetic chronic kidney disease; N18.9 Chronic kidney disease, unspecified; Z95.5 Presence of coronary angioplasty implant and graft; Z79.4 Long term (current) use of insulin
CPT/HCPCS: 36415; 36430; 71045; 80048; 80053; 81003; 82043; 82962; 83605; 83735; 83880; 84100; 84155; 84300; 84443; 84484; 85025; 85610; 85730; 86850; 86900; 86901; 86920; 87040; 87086; 92610; 93005; 93306; 97161; 99291-25

== ENCOUNTER 2017-12-14 17:06 | Inpatient (IN) | payer MEDICARE, BC ==
[2017-12-14] MEDS: SOD CHLORIDE 0.9% 500 ML IV (19:00)
[2017-12-14 19:07] LABS: ABNORMAL IP MESSAGE 1; HEMATOCRIT 18.3 % (42.0-52.0); MEAN CORPUSCULAR HEMOGLOBIN 29.5 pg (29.0-33.0); MEAN CORPUSCULAR HGB CONC 33.3 g/dl (32.0-37.0); MEAN CORPUSCULAR VOLUME 88.4 fl (82.0-101.0); NUCLEATED RED BLOOD CELLS% 4.7 /100WBC (0.0-0.0); PLATELET COUNT 72 10^3/UL (140-415); POSITIVE DIFF @See below; RED BLOOD COUNT 2.07 10^6/ul (4.70-6.10); RED CELL DISTRIBUTION WIDTH 17.1 % (11.5-14.5)
[2017-12-14 19:07] LABS: WHITE BLOOD COUNT 11.9 10^3/ul (4.8-10.8)
[2017-12-14 19:09] LABS: ADD MAN DIFF? YES
[2017-12-14 19:11] LABS: HEMOGLOBIN 6.1 g/dl (14.0-18.0)
[2017-12-14 19:25] LABS: ALANINE AMINOTRANSFERASE 19 IU/L (13-69); ALBUMIN 3.6 g/dl (3.3-4.9); ALBUMIN/GLOBULIN RATIO 1.09; ALKALINE PHOSPHATASE 137 IU/L (42-121); ANION GAP 15 (8-16); ASPARTATE AMINO TRANSFERASE 26 IU/L (15-46); BILIRUBIN,INDIRECT 0.5 mg/dl (0-1.1); BILIRUBIN,TOTAL 0.5 mg/dl (0.2-1.3); BLOOD UREA NITROGEN 35 mg/dl (7-20); CALCIUM 8.7 mg/dl (8.4-10.2); CARBON DIOXIDE 27 mmol/L (21-31); CHLORIDE 96 mmol/L (97-110); CREATININE 1.62 mg/dl (0.61-1.24); GLUCOSE 141 mg/dl (70-220); POTASSIUM 3.7 mmol/L (3.5-5.1); SODIUM 134 mmol/L (135-144); TOTAL PROTEIN 6.9 g/dl (6.1-8.1)
[2017-12-14 19:37] LABS: TROPONIN-I 0.078 ng/ml (0.000-0.120)
[2017-12-14 19:39] LABS: INR 1.06; PROTIME 13.9 Sec (11.9-14.9); PT RATIO 1.1
[2017-12-14 19:40] LABS: PARTIAL THROMBOPLASTIN TIME 36.7 Sec (25.0-35.0)
[2017-12-14] MEDS: SOD CHLORIDE 0.9% 250 ML IV (19:46)
[2017-12-14] MEDS ORDERED: ACETAMINOPHEN 325 MG TAB PO (20:30)
[2017-12-14] MEDS ORDERED: ONDANSETRON 4 MG INJ IV (20:30)
[2017-12-14 20:46] LABS: ANISOCYTOSIS 2+ (0-0); BAND NEUTROPHILS #M 0.3 10^3/ul (0.0-0.6); BASOPHIL #M 1.3 10^3/ul (0.0-0.0); BASOPHILS % (M) 11 % (0-2); EOSINOPHILS % (M) 9 % (0-7); ERYTHROBLAST% (NRBC) (M) 19 % (0-0); GIANT THROMBO% (M) 8 % (0-0); HYPOCHROMASIA 1+ (0-0); LYMPHOCYTES #M 2.6 10^3/ul (0.8-2.9); LYMPHOCYTES % (M) 22 % (15-51); METAMYELOCYTES #M 0.2 10^3/ul (0.0-0.0); METAMYELOCYTES %M 2 % (0-0); MICROCYTOSIS 3+ (0-0); MONOCYTE #M 0.8 10^3/ul (0.3-0.9); MONOCYTES % (M) 7 % (0-11); MYELOCYTES #M 0.4 10^3/ul (0.0-0.0); MYELOCYTES % (M) 4 % (0-0); OVALOCYTES 1+ (0-0); PLATELET ESTIMATE DECREASED; POIKILOCYTOSIS 1+ (0-0); POLYCHROMASIA 1+ (0-0); SEG NEUT #M 1.3 10^3/ul (1.6-7.5); SEGMENTED NEUTROPHILS (M) % 11 % (39-77); SMUDGE%M 47 % (0-0); TEAR DROP CELLS 1+ (0-0)
[2017-12-15] MEDS ORDERED: DEXTROSE 50% 50 ML SYRINGE IV ×2 (07:30)
[2017-12-15] MEDS ORDERED: GLUCOSE GEL 15 GRAM TUBE PO ×2 (07:30)
[2017-12-15] MEDS ORDERED: GLUCAGON 1 MG INJ IM (07:30)
[2017-12-15] MEDS ORDERED: GLUCOSE GEL 15 GRAM TUBE BUCCAL (07:30)
[2017-12-15] MEDS: INSULIN ASPART [NOVOLOG] 3 ML PEN SC ×4 (10:06→20:46)
[2017-12-15 11:20] LABS: ABNORMAL IP MESSAGE 1; HEMATOCRIT 24.8 % (42.0-52.0); HEMOGLOBIN 8.2 g/dl (14.0-18.0); MEAN CORPUSCULAR HEMOGLOBIN 28.1 pg (29.0-33.0); MEAN CORPUSCULAR HGB CONC 33.1 g/dl (32.0-37.0); MEAN CORPUSCULAR VOLUME 84.9 fl (82.0-101.0); NUCLEATED RED BLOOD CELLS% 6.7 /100WBC (0.0-0.0); PLATELET COUNT 72 10^3/UL (140-415); POSITIVE DIFF @See below; RED BLOOD COUNT 2.92 10^6/ul (4.70-6.10); RED CELL DISTRIBUTION WIDTH 17.3 % (11.5-14.5)
[2017-12-15] MEDS: ACCU-CHEK XX ×3 (11:20→20:46)
[2017-12-15 11:49] LABS: ANION GAP 13 (8-16); BLOOD UREA NITROGEN 31 mg/dl (7-20); CALCIUM 8.5 mg/dl (8.4-10.2); CARBON DIOXIDE 27 mmol/L (21-31); CHLORIDE 99 mmol/L (97-110); CREATININE 1.26 mg/dl (0.61-1.24); GLUCOSE 173 mg/dl (70-220); POTASSIUM 3.5 mmol/L (3.5-5.1); SODIUM 135 mmol/L (135-144)
[2017-12-15 11:56] LABS: ADD MAN DIFF? YES
[2017-12-15] MEDS: LINAGLIPTIN 5 MG TABLET PO (12:03)
[2017-12-15] MEDS: METOPROLOL 25 MG TAB PO ×2 (12:03→20:45)
[2017-12-15] MEDS: RANOLAZINE (SR) 500 MG TAB PO ×2 (12:03→20:46)
[2017-12-15] MEDS: FUROSEMIDE 40 MG TAB PO (12:03)
[2017-12-15 13:04] LABS: ANISOCYTOSIS 2+ (0-0); BAND NEUTROPHILS #M 0.6 10^3/ul (0.0-0.6); BAND NEUTROPHILS % (M) 6 % (0-4); BASOPHIL #M 0.7 10^3/ul (0.0-0.0); BASOPHILS % (M) 7 % (0-2); EOSINOPHILS % (M) 4 % (0-7); ERYTHROBLAST% (NRBC) (M) 11 % (0-0); LYMPHOCYTES #M 1.8 10^3/ul (0.8-2.9); LYMPHOCYTES % (M) 18 % (15-51); METAMYELOCYTES #M 0.2 10^3/ul (0.0-0.0); METAMYELOCYTES %M 2 % (0-0); MICROCYTOSIS 2+ (0-0); MONOCYTE #M 1.7 10^3/ul (0.3-0.9); MONOCYTES % (M) 17 % (0-11); MYELOCYTES #M 0.1 10^3/ul (0.0-0.0); MYELOCYTES % (M) 1 % (0-0); PLATELET ESTIMATE DECREASED; POIKILOCYTOSIS 1+ (0-0); POLYCHROMASIA 2+ (0-0); PROMYELOCYTES #M 0.3 10^3/ul (0-0); PROMYELOCYTES % (M) 3 % (0-0); SEGMENTED NEUTROPHILS (M) % 19 % (39-77); SMUDGE%M 17 % (0-0)
[2017-12-15] MEDS: DRONABINOL 2.5 MG CAP PO ×2 (13:15→20:45)
[2017-12-15] MEDS: PANTOPRAZOLE (EC) 40 MG TAB PO (17:47)
[2017-12-15 19:13] LABS: TROPONIN-I 0.063 ng/ml (0.000-0.120)
[2017-12-15] MEDS: ACETAMINOPHEN 325 MG TAB PO (22:22)
[2017-12-15] MEDS: DIPHENHYDRAMINE 50 MG INJ IV (22:22)
[2017-12-15] MEDS: SOD CHLORIDE 0.9% 250 ML IV* (22:23)
[2017-12-15 22:32] LABS: IMMEDIATE SPIN CROSSMATCH 1 5
[2017-12-16 01:41] LABS: TROPONIN-I 0.066 ng/ml (0.000-0.120)
[2017-12-16] MEDS: ACCU-CHEK XX ×5 (02:00→21:21)
[2017-12-16] MEDS: FUROSEMIDE 20 MG INJ IV (02:17)
[2017-12-16] MEDS: PANTOPRAZOLE (EC) 40 MG TAB PO (06:25)
[2017-12-16] MEDS: INSULIN ASPART [NOVOLOG] 3 ML PEN SC ×4 (07:52→21:00)
[2017-12-16] MEDS: DRONABINOL 2.5 MG CAP PO ×2 (08:11→21:19)
[2017-12-16] MEDS: RANOLAZINE (SR) 500 MG TAB PO ×2 (08:11→21:19)
[2017-12-16] MEDS: LINAGLIPTIN 5 MG TABLET PO (08:12)
[2017-12-16] MEDS: METOPROLOL 25 MG TAB PO ×2 (08:12→21:00)
[2017-12-16] MEDS: FUROSEMIDE 40 MG INJ IV (08:18)
[2017-12-16 08:33] LABS: WHITE BLOOD COUNT 10.7 10^3/ul (4.8-10.8)
[2017-12-16 08:33] LABS: ABNORMAL IP MESSAGE 1; HEMATOCRIT 30.7 % (42.0-52.0); HEMOGLOBIN 10.2 g/dl (14.0-18.0); MEAN CORPUSCULAR HEMOGLOBIN 28.3 pg (29.0-33.0); MEAN CORPUSCULAR HGB CONC 33.2 g/dl (32.0-37.0); MEAN CORPUSCULAR VOLUME 85.3 fl (82.0-101.0); PLATELET COUNT 67 10^3/UL (140-415); POSITIVE DIFF @See below; RED CELL DISTRIBUTION WIDTH 17.2 % (11.5-14.5)
[2017-12-16 08:43] LABS: ADD MAN DIFF? YES
[2017-12-16 08:58] LABS: ANION GAP 16 (8-16); BLOOD UREA NITROGEN 34 mg/dl (7-20); CALCIUM 9.1 mg/dl (8.4-10.2); CARBON DIOXIDE 26 mmol/L (21-31); CHLORIDE 99 mmol/L (97-110); CREATININE 1.44 mg/dl (0.61-1.24); GLUCOSE 135 mg/dl (70-220); MAGNESIUM 1.6 mg/dl (1.7-2.5); PHOSPHORUS 4.1 mg/dl (2.5-4.9); POTASSIUM 3.5 mmol/L (3.5-5.1); SODIUM 137 mmol/L (135-144)
[2017-12-16 08:59] LABS: BAND NEUTROPHILS % (M) 3 % (0-4)
[2017-12-16 09:09] LABS: CHOLESTEROL 155 mg/dl (100-200)
[2017-12-16 09:09] LABS: CHOL/HDL RATIO 6.4 RATIO; HDL CHOLESTEROL 24 mg/dl (31-75); LDL CHOLESTEROL,CALCULATED 85 mg/dl; TRIGLYCERIDES 228 mg/dl (0-149)
[2017-12-16 09:10] LABS: TROPONIN-I 0.053 ng/ml (0.000-0.120)
[2017-12-16 09:49] LABS: ANISOCYTOSIS 2+ (0-0); BAND NEUTROPHILS #M 0.4 10^3/ul (0.0-0.6); BAND NEUTROPHILS % (M) 4 % (0-4); EOSINOPHILS % (M) 6 % (0-7); ERYTHROBLAST% (NRBC) (M) 2 % (0-0); GIANT THROMBO% (M) 3 % (0-0); LYMPHOCYTES #M 2.8 10^3/ul (0.8-2.9); LYMPHOCYTES % (M) 27 % (15-51); METAMYELOCYTES #M 0.2 10^3/ul (0.0-0.0); METAMYELOCYTES %M 2 % (0-0); MICROCYTOSIS 2+ (0-0); MONOCYTE #M 1.1 10^3/ul (0.3-0.9); MONOCYTES % (M) 11 % (0-11); MYELOCYTES #M 0.4 10^3/ul (0.0-0.0); MYELOCYTES % (M) 4 % (0-0); PLATELET ESTIMATE SIG DECREASED; POIKILOCYTOSIS 1+ (0-0); POLYCHROMASIA 1+ (0-0); PROMYELOCYTES #M 0.2 10^3/ul (0-0); PROMYELOCYTES % (M) 2 % (0-0); SEG NEUT #M 1.9 10^3/ul (1.6-7.5); SEGMENTED NEUTROPHILS (M) % 17 % (39-77); SMUDGE%M 15 % (0-0)
[2017-12-17] MEDS: ACCU-CHEK XX ×4 (02:00→17:27)
[2017-12-17] MEDS: PANTOPRAZOLE (EC) 40 MG TAB PO (05:48)
[2017-12-17 06:30] LABS: WHITE BLOOD COUNT 8.9 10^3/ul (4.8-10.8)
[2017-12-17 06:30] LABS: ABNORMAL IP MESSAGE 1; HEMATOCRIT 27.3 % (42.0-52.0); MEAN CORPUSCULAR HEMOGLOBIN 28.4 pg (29.0-33.0); MEAN CORPUSCULAR VOLUME 86.1 fl (82.0-101.0); NUCLEATED RED BLOOD CELLS% 3.8 /100WBC (0.0-0.0); POSITIVE DIFF @See below; RED BLOOD COUNT 3.17 10^6/ul (4.70-6.10); RED CELL DISTRIBUTION WIDTH 17.1 % (11.5-14.5)
[2017-12-17 06:35] LABS: PLATELET COUNT 48 10^3/UL (140-415)
[2017-12-17 06:36] LABS: ADD MAN DIFF? YES
[2017-12-17 07:04] LABS: ANION GAP 13 (8-16); BLOOD UREA NITROGEN 39 mg/dl (7-20); CALCIUM 8.7 mg/dl (8.4-10.2); CARBON DIOXIDE 24 mmol/L (21-31); CHLORIDE 99 mmol/L (97-110); CREATININE 1.47 mg/dl (0.61-1.24); GLUCOSE 173 mg/dl (70-220); MAGNESIUM 1.7 mg/dl (1.7-2.5); PHOSPHORUS 4.9 mg/dl (2.5-4.9); POTASSIUM 3.7 mmol/L (3.5-5.1); SODIUM 132 mmol/L (135-144)
[2017-12-17] MEDS: INSULIN ASPART [NOVOLOG] 3 ML PEN SC ×3 (07:50→17:30)
[2017-12-17] MEDS: METOPROLOL 25 MG TAB PO (08:14)
[2017-12-17] MEDS: FUROSEMIDE 40 MG INJ IV (08:16)
[2017-12-17] MEDS: DRONABINOL 2.5 MG CAP PO (08:16)
[2017-12-17] MEDS: LINAGLIPTIN 5 MG TABLET PO (08:16)
[2017-12-17] MEDS: RANOLAZINE (SR) 500 MG TAB PO (08:16)
[2017-12-17 08:48] LABS: ANISOCYTOSIS 1+ (0-0); BAND NEUTROPHILS #M 0.4 10^3/ul (0.0-0.6); BAND NEUTROPHILS % (M) 5 % (0-4); BASOPHILS % (M) 1 % (0-2); EOSINOPHILS % (M) 3 % (0-7); ERYTHROBLAST% (NRBC) (M) 5 % (0-0); GIANT THROMBO% (M) 2 % (0-0); LYMPHOCYTES #M 3.2 10^3/ul (0.8-2.9); LYMPHOCYTES % (M) 36 % (15-51); METAMYELOCYTES #M 0.1 10^3/ul (0.0-0.0); METAMYELOCYTES %M 2 % (0-0); MICROCYTOSIS 1+ (0-0); MONOCYTE #M 1.2 10^3/ul (0.3-0.9); MONOCYTES % (M) 14 % (0-11); MYELOCYTES #M 0.2 10^3/ul (0.0-0.0); MYELOCYTES % (M) 3 % (0-0); PLATELET ESTIMATE DECREASED; POIKILOCYTOSIS 2+ (0-0); POLYCHROMASIA 3+ (0-0); REACTIVE LYMPHOCYTES #M 0.2 10^3/ul (0.0-0.0); REACTIVE LYMPHOCYTES% (M) 3 % (0-0); SEG NEUT #M 0.7 10^3/ul (1.6-7.5); SEGMENTED NEUTROPHILS (M) % 7 % (39-77); SMUDGE%M 19 % (0-0)
== END 2017-12-17 20:16 | disposition home or self-care (01) | DRG 834 ==
LOC: TEL 20:30 → E/R 17:06
PROVIDERS: Pediatrics
PROC: 30233N1 Transfusion of Nonautologous Red Blood Cells into Peripheral Vein, Percutaneous Approach (ICD-10-PCS; 2017-12-14)
PROC: 30233N1 Transfusion of Nonautologous Red Blood Cells into Peripheral Vein, Percutaneous Approach (ICD-10-PCS; 2017-12-15)
PROC: 30233N1 Transfusion of Nonautologous Red Blood Cells into Peripheral Vein, Percutaneous Approach (ICD-10-PCS; principal; 2017-12-17)
DX: C92.02 Acute myeloblastic leukemia, in relapse (principal); I50.23 Acute on chronic systolic (congestive) heart failure; J96.20 Acute and chronic respiratory failure, unspecified whether with hypoxia or hypercapnia; D61.818 Other pancytopenia; N17.9 Acute kidney failure, unspecified; E87.0 Hyperosmolality and hypernatremia; R65.10 Systemic inflammatory response syndrome (SIRS) of non-infectious origin without acute organ dysfunction; E87.1 Hypo-osmolality and hyponatremia; I42.9 Cardiomyopathy, unspecified; I13.0 Hypertensive heart and chronic kidney disease with heart failure and stage 1 through stage 4 chronic kidney disease, or unspecified chronic kidney disease; E11.22 Type 2 diabetes mellitus with diabetic chronic kidney disease; E11.42 Type 2 diabetes mellitus with diabetic polyneuropathy; I11.0 Hypertensive heart disease with heart failure; D50.0 Iron deficiency anemia secondary to blood loss (chronic); N18.9 Chronic kidney disease, unspecified; N40.0 Benign prostatic hyperplasia without lower urinary tract symptoms; I25.10 Atherosclerotic heart disease of native coronary artery without angina pectoris; E78.5 Hyperlipidemia, unspecified; F32.9 Major depressive disorder, single episode, unspecified; Z79.4 Long term (current) use of insulin; Z95.5 Presence of coronary angioplasty implant and graft
CPT/HCPCS: 36415; 36430; 71045; 80048; 80053; 80061; 82962; 83735; 84100; 84484; 85025; 85610; 85730; 86850; 86900; 86901; 86920; 88184; 88185; 93005; 99285-25

== ENCOUNTER 2017-12-20 21:12 | Inpatient (IN) | payer MEDICARE, BC ==
[2017-12-20 21:45] LABS: ABNORMAL IP MESSAGE 1; HEMATOCRIT 31.7 % (42.0-52.0); HEMOGLOBIN 10.2 g/dl (14.0-18.0); MEAN CORPUSCULAR HGB CONC 32.2 g/dl (32.0-37.0); MEAN CORPUSCULAR VOLUME 87.1 fl (82.0-101.0); NUCLEATED RED BLOOD CELLS% 1.6 /100WBC (0.0-0.0); PLATELET COUNT 51 10^3/UL (140-415); POSITIVE DIFF @See below; RED BLOOD COUNT 3.64 10^6/ul (4.70-6.10); RED CELL DISTRIBUTION WIDTH 16.7 % (11.5-14.5)
[2017-12-20 22:00] LABS: ANION GAP 14 (8-16); BLOOD UREA NITROGEN 34 mg/dl (7-20); CALCIUM 8.8 mg/dl (8.4-10.2); CARBON DIOXIDE 30 mmol/L (21-31); CHLORIDE 96 mmol/L (97-110); CREATININE 1.34 mg/dl (0.61-1.24); GLUCOSE 147 mg/dl (70-220); POTASSIUM 3.8 mmol/L (3.5-5.1); SODIUM 136 mmol/L (135-144)
[2017-12-20 22:13] LABS: B-TYPE NATRIURETIC PEPTIDE 26900 PG/ML (0-125); TROPONIN-I < 0.012 ng/ml (0.000-0.120)
[2017-12-20 22:17] LABS: ADD MAN DIFF? YES
[2017-12-20 22:54] LABS: ANISOCYTOSIS 1+ (0-0); BAND NEUTROPHILS #M 0.5 10^3/ul (0.0-0.6); BAND NEUTROPHILS % (M) 8 % (0-4); BASOPHIL #M 0.2 10^3/ul (0.0-0.0); BASOPHILS % (M) 3 % (0-2); BLAST% (M) 38.9 % (0-0); EOSINOPHILS % (M) 4 % (0-7); ERYTHROBLAST% (NRBC) (M) 1 % (0-0); GIANT THROMBO% (M) 1 % (0-0); LYMPHOCYTES #M 0.8 10^3/ul (0.8-2.9); LYMPHOCYTES % (M) 12 % (15-51); METAMYELOCYTES #M 0.1 10^3/ul (0.0-0.0); METAMYELOCYTES %M 2 % (0-0); MICROCYTOSIS 1+ (0-0); MONOCYTES % (M) 15 % (0-11); MYELOCYTES % (M) 1 % (0-0); PLASMA CELLS #M 0.1 10^3/ul (0.0-0.0); PLASMAC%(M) 2 % (0); PLATELET ESTIMATE DECREASED; POIKILOCYTOSIS 1+ (0-0); POLYCHROMASIA 1+ (0-0); REACTIVE LYMPHOCYTES #M 0.3 10^3/ul (0.0-0.0); REACTIVE LYMPHOCYTES% (M) 5 % (0-0); SEG NEUT #M 0.7 10^3/ul (1.6-7.5); SEGMENTED NEUTROPHILS (M) % 10 % (39-77); SMUDGE%M 6 % (0-0)
[2017-12-20] MEDS ORDERED: ONDANSETRON 4 MG INJ IV ×2 (23:00→23:30)
[2017-12-20] MEDS: FUROSEMIDE 40 MG INJ IV (23:00)
[2017-12-20] MEDS ORDERED: morphine 2 MG INJ IV (23:30)
[2017-12-21] MEDS ORDERED: GLUCOSE GEL 15 GRAM TUBE PO ×2 (00:30)
[2017-12-21] MEDS ORDERED: DEXTROSE 50% 50 ML SYRINGE IV ×2 (00:30)
[2017-12-21] MEDS ORDERED: GLUCAGON 1 MG INJ IM (00:30)
[2017-12-21] MEDS ORDERED: GLUCOSE GEL 15 GRAM TUBE BUCCAL (00:30)
[2017-12-21 04:02] LABS: CREATINE KINASE 28 IU/L (23-200)
[2017-12-21 04:20] LABS: CK INDEX 3.2; TROPONIN-I 0.025 ng/ml (0.000-0.120)
[2017-12-21] MEDS: INSULIN ASPART [NOVOLOG] 3 ML PEN SC ×3 (08:08→17:21)
[2017-12-21] MEDS: RANOLAZINE (SR) 500 MG TAB PO ×2 (08:20→20:41)
[2017-12-21] MEDS: POTASSIUM CHLORIDE (SR) 20 MEQ TAB PO (08:23)
[2017-12-21] MEDS: FUROSEMIDE 40 MG INJ IV ×2 (08:25→20:41)
[2017-12-21] MEDS: METOPROLOL 25 MG TAB PO (08:31)
[2017-12-21] MEDS: ACETAMINOPHEN 325 MG TAB PO ×2 (08:38→18:00)
[2017-12-21] MEDS ORDERED: HYDROCODONE/APAP (5/325) TAB PO (10:00)
[2017-12-21] MEDS: ICLUSIG PO (11:14)
[2017-12-21 11:32] LABS: CREATINE KINASE 25 IU/L (23-200)
[2017-12-21 11:41] LABS: CK INDEX 4.4; TROPONIN-I 0.017 ng/ml (0.000-0.120)
[2017-12-21] MEDS ORDERED: morphine LIQ (10 MG/5 ML) CUP PO (17:00)
[2017-12-21] MEDS ORDERED: ZOLPIDEM 5 MG TAB PO (18:00)
[2017-12-21] MEDS: Insulin NOVOLOG SS MILD Algorithm (SS with meals and bedtime) SC (22:01)
[2017-12-22] MEDS: ACCUCHECK AT 2AM (Patients on SS coverage) XX (02:00)
[2017-12-22] MEDS: ACETAMINOPHEN 325 MG TAB PO (06:21)
[2017-12-22 07:23] LABS: WHITE BLOOD COUNT 8.6 10^3/ul (4.8-10.8)
[2017-12-22 07:23] LABS: ABNORMAL IP MESSAGE 1; HEMOGLOBIN 9.5 g/dl (14.0-18.0); MEAN CORPUSCULAR HEMOGLOBIN 28.4 pg (29.0-33.0); MEAN CORPUSCULAR HGB CONC 32.8 g/dl (32.0-37.0); MEAN CORPUSCULAR VOLUME 86.8 fl (82.0-101.0); NUCLEATED RED BLOOD CELLS% 1.2 /100WBC (0.0-0.0); PLATELET COUNT 51 10^3/UL (140-415); POSITIVE DIFF @See below; RED BLOOD COUNT 3.34 10^6/ul (4.70-6.10); RED CELL DISTRIBUTION WIDTH 16.5 % (11.5-14.5)
[2017-12-22] MEDS: Insulin NOVOLOG SS MILD Algorithm (SS with meals and bedtime) SC ×4 (07:25→21:00)
[2017-12-22 07:34] LABS: ADD MAN DIFF? YES
[2017-12-22 07:50] LABS: ANION GAP 13 (8-16); BLOOD UREA NITROGEN 38 mg/dl (7-20); CALCIUM 8.7 mg/dl (8.4-10.2); CARBON DIOXIDE 29 mmol/L (21-31); CHLORIDE 97 mmol/L (97-110); CREATININE 1.16 mg/dl (0.61-1.24); GLUCOSE 121 mg/dl (70-220); POTASSIUM 4.3 mmol/L (3.5-5.1); SODIUM 135 mmol/L (135-144)
[2017-12-22 08:00] LABS: B-TYPE NATRIURETIC PEPTIDE 17800 PG/ML (0-125)
[2017-12-22] MEDS: RANOLAZINE (SR) 500 MG TAB PO ×2 (08:46→21:00)
[2017-12-22] MEDS: POTASSIUM CHLORIDE (SR) 20 MEQ TAB PO (08:46)
[2017-12-22] MEDS: FUROSEMIDE 40 MG INJ IV (08:46)
[2017-12-22] MEDS: ICLUSIG PO (08:46)
[2017-12-22] MEDS: INSULIN ASPART [NOVOLOG] 3 ML PEN SC ×3 (09:01→17:26)
[2017-12-22 10:03] LABS: ANISOCYTOSIS 2+ (0-0); BAND NEUTROPHILS #M 0.8 10^3/ul (0.0-0.6); BAND NEUTROPHILS % (M) 10 % (0-4); BASOPHIL #M 0.4 10^3/ul (0.0-0.0); BASOPHILS % (M) 5 % (0-2); EOSINOPHILS % (M) 2 % (0-7); ERYTHROBLAST% (NRBC) (M) 2 % (0-0); LYMPHOCYTES #M 1.9 10^3/ul (0.8-2.9); LYMPHOCYTES % (M) 23 % (15-51); METAMYELOCYTES %M 1 % (0-0); MICROCYTOSIS 2+ (0-0); MONOCYTE #M 1.8 10^3/ul (0.3-0.9); MONOCYTES % (M) 22 % (0-11); MYELOCYTES % (M) 1 % (0-0); PLATELET ESTIMATE DECREASED; POLYCHROMASIA 2+ (0-0); SEG NEUT #M 1.3 10^3/ul (1.6-7.5); SEGMENTED NEUTROPHILS (M) % 14 % (39-77); SMUDGE%M 9 % (0-0)
[2017-12-22] MEDS: FUROSEMIDE 20 MG INJ IV (21:00)
[2017-12-23] MEDS: ACCUCHECK AT 2AM (Patients on SS coverage) XX (01:53)
[2017-12-23] MEDS: Insulin NOVOLOG SS MILD Algorithm (SS with meals and bedtime) SC (07:25)
[2017-12-23] MEDS: INSULIN ASPART [NOVOLOG] 3 ML PEN SC (07:51)
[2017-12-23] MEDS: FUROSEMIDE 20 MG INJ IV (08:09)
[2017-12-23] MEDS: ICLUSIG PO (08:09)
[2017-12-23] MEDS: RANOLAZINE (SR) 500 MG TAB PO (08:09)
[2017-12-23] MEDS: POTASSIUM CHLORIDE (SR) 20 MEQ TAB PO (08:09)
== END 2017-12-23 11:13 | disposition home or self-care (01) | DRG 291 ==
LOC: TEL 22:53 → E/R 21:12 → TEL 23:25
DX: I13.0 Hypertensive heart and chronic kidney disease with heart failure and stage 1 through stage 4 chronic kidney disease, or unspecified chronic kidney disease (principal); N17.0 Acute kidney failure with tubular necrosis; C92.00 Acute myeloblastic leukemia, not having achieved remission; D69.6 Thrombocytopenia, unspecified; N18.9 Chronic kidney disease, unspecified; Z87.891 Personal history of nicotine dependence; J44.9 Chronic obstructive pulmonary disease, unspecified; E11.9 Type 2 diabetes mellitus without complications; Z79.4 Long term (current) use of insulin; F32.9 Major depressive disorder, single episode, unspecified; G62.9 Polyneuropathy, unspecified; K21.9 Gastro-esophageal reflux disease without esophagitis; R63.4 Abnormal weight loss; Z68.23 Body mass index [BMI] 23.0-23.9, adult; I25.10 Atherosclerotic heart disease of native coronary artery without angina pectoris; R00.0 Tachycardia, unspecified
CPT/HCPCS: 36415; 71045; 80048; 82550; 82553; 82962; 83880; 84484; 85025; 86850; 86900; 86901; 87081; 88300; 93005; 99285-25

== ENCOUNTER 2017-12-28 17:46 | Observation (INO) | payer MEDICARE, BC ==
[2017-12-28 21:24] LABS: ADD MAN DIFF? NO
[2017-12-28 21:31] LABS: ABNORMAL IP MESSAGE 1; HEMATOCRIT 23.8 % (42.0-52.0); HEMOGLOBIN 7.8 g/dl (14.0-18.0); MEAN CORPUSCULAR HEMOGLOBIN 28.6 pg (29.0-33.0); MEAN CORPUSCULAR HGB CONC 32.8 g/dl (32.0-37.0); MEAN CORPUSCULAR VOLUME 87.2 fl (82.0-101.0); NUCLEATED RED BLOOD CELLS% 1.4 /100WBC (0.0-0.0); PLATELET COUNT 75 10^3/UL (140-415); POSITIVE DIFF @See below; RED BLOOD COUNT 2.73 10^6/ul (4.70-6.10); RED CELL DISTRIBUTION WIDTH 16.4 % (11.5-14.5)
[2017-12-28 21:31] LABS: WHITE BLOOD COUNT 16.8 10^3/ul (4.8-10.8)
[2017-12-28] MEDS: SOD CHLORIDE 0.9% 1,000 ML IV (21:34)
[2017-12-28 21:56] LABS: ANISOCYTOSIS 1+ (0-0); BAND NEUTROPHILS #M 0.8 10^3/ul (0.0-0.6); BAND NEUTROPHILS % (M) 5 % (0-4); EOSINOPHILS % (M) 8 % (0-7); ERYTHROBLAST% (NRBC) (M) 4 % (0-0); LYMPHOCYTES #M 2.5 10^3/ul (0.8-2.9); LYMPHOCYTES % (M) 15 % (15-51); METAMYELOCYTES #M 0.6 10^3/ul (0.0-0.0); METAMYELOCYTES %M 4 % (0-0); MICROCYTOSIS 1+ (0-0); MONOCYTE #M 2.1 10^3/ul (0.3-0.9); MONOCYTES % (M) 13 % (0-11); MYELOCYTES #M 0.3 10^3/ul (0.0-0.0); MYELOCYTES % (M) 2 % (0-0); PLATELET ESTIMATE DECREASED; POIKILOCYTOSIS 1+ (0-0); POLYCHROMASIA 1+ (0-0); SEG NEUT #M 3.2 10^3/ul (1.6-7.5); SEGMENTED NEUTROPHILS (M) % 18 % (39-77); SMUDGE%M 18 % (0-0)
[2017-12-28 22:03] LABS: ALANINE AMINOTRANSFERASE 15 IU/L (13-69); ALBUMIN 3.3 g/dl (3.3-4.9); ALKALINE PHOSPHATASE 126 IU/L (42-121); ANION GAP 17 (8-16); ASPARTATE AMINO TRANSFERASE 13 IU/L (15-46); BILIRUBIN,INDIRECT 0.5 mg/dl (0-1.1); BILIRUBIN,TOTAL 0.5 mg/dl (0.2-1.3); BLOOD UREA NITROGEN 36 mg/dl (7-20); CARBON DIOXIDE 30 mmol/L (21-31); CHLORIDE 92 mmol/L (97-110); CREATININE 1.45 mg/dl (0.61-1.24); GLUCOSE 137 mg/dl (70-220); LIPASE 60 U/L (23-300); POTASSIUM 4.3 mmol/L (3.5-5.1); SODIUM 135 mmol/L (135-144); TOTAL PROTEIN 6.3 g/dl (6.1-8.1)
[2017-12-28] MEDS ORDERED: ZOLPIDEM 5 MG TAB PO (23:30)
[2017-12-28] MEDS ORDERED: ONDANSETRON 4 MG INJ IV (23:30)
[2017-12-29 05:56] LABS: ABNORMAL IP MESSAGE 1; HEMATOCRIT 22.4 % (42.0-52.0); HEMOGLOBIN 7.1 g/dl (14.0-18.0); MEAN CORPUSCULAR HEMOGLOBIN 27.5 pg (29.0-33.0); MEAN CORPUSCULAR HGB CONC 31.7 g/dl (32.0-37.0); MEAN CORPUSCULAR VOLUME 86.8 fl (82.0-101.0); NUCLEATED RED BLOOD CELLS% 1.3 /100WBC (0.0-0.0); POSITIVE DIFF @See below; RED BLOOD COUNT 2.58 10^6/ul (4.70-6.10); RED CELL DISTRIBUTION WIDTH 16.5 % (11.5-14.5)
[2017-12-29 05:59] LABS: ADD MAN DIFF? YES; PLATELET COUNT 48 10^3/UL (140-415)
[2017-12-29 06:43] LABS: B-TYPE NATRIURETIC PEPTIDE 25400 PG/ML (0-125)
[2017-12-29 07:18] LABS: ANISOCYTOSIS 1+ (0-0); BAND NEUTROPHILS #M 0.5 10^3/ul (0.0-0.6); BAND NEUTROPHILS % (M) 4 % (0-4); BASOPHIL #M 0.5 10^3/ul (0.0-0.0); BASOPHILS % (M) 4 % (0-2); EOSINOPHILS % (M) 2 % (0-7); ERYTHROBLAST% (NRBC) (M) 2 % (0-0); LYMPHOCYTES #M 2.6 10^3/ul (0.8-2.9); LYMPHOCYTES % (M) 19 % (15-51); METAMYELOCYTES #M 0.4 10^3/ul (0.0-0.0); METAMYELOCYTES %M 3 % (0-0); MICROCYTOSIS 1+ (0-0); MONOCYTE #M 1.8 10^3/ul (0.3-0.9); MONOCYTES % (M) 13 % (0-11); MYELOCYTES #M 0.5 10^3/ul (0.0-0.0); MYELOCYTES % (M) 4 % (0-0); PLATELET ESTIMATE DECREASED; POLYCHROMASIA 1+ (0-0); SEG NEUT #M 3.2 10^3/ul (1.6-7.5); SEGMENTED NEUTROPHILS (M) % 22 % (39-77); SMUDGE%M 14 % (0-0)
[2017-12-29 07:28] LABS: ANION GAP 13 (8-16); BLOOD UREA NITROGEN 33 mg/dl (7-20); CALCIUM 8.6 mg/dl (8.4-10.2); CARBON DIOXIDE 29 mmol/L (21-31); CHLORIDE 97 mmol/L (97-110); CREATININE 1.42 mg/dl (0.61-1.24); GLUCOSE 111 mg/dl (70-220); POTASSIUM 3.7 mmol/L (3.5-5.1); SODIUM 135 mmol/L (135-144)
[2017-12-29 09:40] LABS: ADD UMIC YES; UR ASCORBIC ACID NEGATIVE (NEGATIVE); UR BILIRUBIN (Dip) NEGATIVE (NEGATIVE); UR BLOOD (Dip) NEGATIVE (NEGATIVE); UR CLARITY CLOUDY (CLEAR); UR COLOR YELLOW (YELLOW); UR GLUCOSE (Dip) 2+ mg/dL (NEGATIVE); UR KETONES (Dip) NEGATIVE (NEGATIVE); UR LEUKOCYTE ESTERASE (Dip) NEGATIVE Leu/ul (NEGATIVE); UR NITRITE (Dip) NEGATIVE (NEGATIVE); UR RBC 0 /HPF (0-5); UR SPECIFIC GRAVITY (Dip) 1.012 (1.003-1.030); UR TOTAL PROTEIN (Dip) NEGATIVE (NEGATIVE); UR UROBILINOGEN (Dip) NEGATIVE (NEGATIVE); UR WBC 1 /HPF (0-5)
[2017-12-29] MEDS ORDERED: GLUCAGON 1 MG INJ IM (10:00)
[2017-12-29] MEDS ORDERED: GLUCOSE GEL 15 GRAM TUBE BUCCAL (10:00)
[2017-12-29] MEDS ORDERED: GLUCOSE GEL 15 GRAM TUBE PO ×2 (10:00)
[2017-12-29] MEDS ORDERED: DEXTROSE 50% 50 ML SYRINGE IV ×2 (10:00)
[2017-12-29] MEDS: ACCU-CHEK XX (10:03)
[2017-12-29] MEDS ORDERED: INSULIN ASPART [NOVOLOG] 3 ML PEN SC ×2 (11:40)
[2017-12-29] MEDS: ALENDRONATE 70 MG TAB PO (11:55)
[2017-12-29] MEDS: INSULIN ASPART [NOVOLOG] 3 ML PEN SC ×3 (12:30→21:00)
[2017-12-29] MEDS: FUROSEMIDE 20 MG INJ IV ×2 (18:11→21:13)
[2017-12-29] MEDS: METOPROLOL 25 MG TAB PO (21:00)
[2017-12-29] MEDS: TAMSULOSIN (SR) 0.4 MG CAP PO (21:12)
[2017-12-29] MEDS: RANOLAZINE (SR) 500 MG TAB PO (21:12)
[2017-12-29] MEDS: DRONABINOL 2.5 MG CAP PO (21:58)
[2017-12-29 23:14] LABS: IMMEDIATE SPIN CROSSMATCH 1 3
[2017-12-30] MEDS: ACETAMINOPHEN 325 MG TAB PO (00:01)
[2017-12-30] MEDS: ACCU-CHEK XX (02:00)
[2017-12-30] MEDS ORDERED: ACCU-CHEK XX (02:00)
[2017-12-30] MEDS: FUROSEMIDE 20 MG INJ IV (03:19)
[2017-12-30 05:07] LABS: ABNORMAL IP MESSAGE 1; HEMATOCRIT 29.6 % (42.0-52.0); HEMOGLOBIN 10.1 g/dl (14.0-18.0); MEAN CORPUSCULAR HEMOGLOBIN 29.3 pg (29.0-33.0); MEAN CORPUSCULAR HGB CONC 34.1 g/dl (32.0-37.0); MEAN CORPUSCULAR VOLUME 85.8 fl (82.0-101.0); NUCLEATED RED BLOOD CELLS% 1.6 /100WBC (0.0-0.0); PLATELET COUNT 56 10^3/UL (140-415); POSITIVE DIFF @See below; RED BLOOD COUNT 3.45 10^6/ul (4.70-6.10); RED CELL DISTRIBUTION WIDTH 14.7 % (11.5-14.5)
[2017-12-30 05:07] LABS: WHITE BLOOD COUNT 15.2 10^3/ul (4.8-10.8)
[2017-12-30 05:17] LABS: ADD MAN DIFF? YES
[2017-12-30 05:26] LABS: ANION GAP 14 (8-16); BLOOD UREA NITROGEN 34 mg/dl (7-20); CALCIUM 8.6 mg/dl (8.4-10.2); CARBON DIOXIDE 29 mmol/L (21-31); CHLORIDE 96 mmol/L (97-110); CREATININE 1.44 mg/dl (0.61-1.24); GLUCOSE 152 mg/dl (70-220); SODIUM 135 mmol/L (135-144)
[2017-12-30 05:46] LABS: B-TYPE NATRIURETIC PEPTIDE 34500 PG/ML (0-125)
[2017-12-30] MEDS: PANTOPRAZOLE 40 MG INJ IV (06:28)
[2017-12-30 07:33] LABS: ANISOCYTOSIS 1+ (0-0); BAND NEUTROPHILS #M 0.9 10^3/ul (0.0-0.6); BAND NEUTROPHILS % (M) 6 % (0-4); BASOPHIL #M 0.6 10^3/ul (0.0-0.0); BASOPHILS % (M) 4 % (0-2); EOSINOPHILS % (M) 3 % (0-7); GIANT THROMBO% (M) 2 % (0-0); LYMPHOCYTES #M 1.3 10^3/ul (0.8-2.9); LYMPHOCYTES % (M) 9 % (15-51); METAMYELOCYTES #M 0.1 10^3/ul (0.0-0.0); METAMYELOCYTES %M 1 % (0-0); MICROCYTOSIS 1+ (0-0); MONOCYTE #M 2.2 10^3/ul (0.3-0.9); MONOCYTES % (M) 15 % (0-11); MYELOCYTES #M 0.1 10^3/ul (0.0-0.0); MYELOCYTES % (M) 1 % (0-0); PLATELET ESTIMATE SIG DECREASED; POIKILOCYTOSIS 2+ (0-0); REACTIVE LYMPHOCYTES #M 0.4 10^3/ul (0.0-0.0); REACTIVE LYMPHOCYTES% (M) 3 % (0-0); SEG NEUT #M 2.4 10^3/ul (1.6-7.5); SEGMENTED NEUTROPHILS (M) % 15 % (39-77); SMUDGE%M 36 % (0-0)
[2017-12-30] MEDS: INSULIN ASPART [NOVOLOG] 3 ML PEN SC (07:50)
[2017-12-30] MEDS: DRONABINOL 2.5 MG CAP PO (08:24)
[2017-12-30] MEDS: RANOLAZINE (SR) 500 MG TAB PO (08:25)
[2017-12-30] MEDS: METOPROLOL 25 MG TAB PO (08:25)
[2017-12-30] MEDS: FUROSEMIDE 40 MG TAB PO (08:25)
[2017-12-30] MEDS: ICLUSIG PO (08:27)
[2017-12-30] MEDS ORDERED: PONATINIB PO (09:00)
[2018-01-05] MEDS ORDERED: ALENDRONATE 70 MG TAB PO (06:30)
== END 2017-12-30 11:40 | disposition home health service (06) ==
LOC: MS1 23:04 → E/R 17:46
DX: C92.02 Acute myeloblastic leukemia, in relapse (principal); I50.9 Heart failure, unspecified; J44.9 Chronic obstructive pulmonary disease, unspecified; Z87.891 Personal history of nicotine dependence; I11.0 Hypertensive heart disease with heart failure; I25.10 Atherosclerotic heart disease of native coronary artery without angina pectoris; R62.7 Adult failure to thrive; E11.9 Type 2 diabetes mellitus without complications; E78.5 Hyperlipidemia, unspecified; C79.51 Secondary malignant neoplasm of bone; K21.9 Gastro-esophageal reflux disease without esophagitis; D61.818 Other pancytopenia
CPT/HCPCS: 36415; 36430; 71045; 80048; 80053; 81001; 82962; 83605; 83690; 83880; 84443; 84484; 85025; 86644; 86850; 86900; 86901; 86920; 86945; 93005; 96360; 99285-25

== ENCOUNTER 2018-01-10 16:33 | Inpatient (IN) | payer MEDICARE, BC ==
[2018-01-10 17:49] LABS: WHITE BLOOD COUNT 28.9 10^3/ul (4.8-10.8)
[2018-01-10 17:49] LABS: ABNORMAL IP MESSAGE 1; HEMATOCRIT 22.1 % (42.0-52.0); HEMOGLOBIN 7.1 g/dl (14.0-18.0); MEAN CORPUSCULAR HEMOGLOBIN 28.4 pg (29.0-33.0); MEAN CORPUSCULAR HGB CONC 32.1 g/dl (32.0-37.0); MEAN CORPUSCULAR VOLUME 88.4 fl (82.0-101.0); NUCLEATED RED BLOOD CELLS% 3.8 /100WBC (0.0-0.0); PLATELET COUNT 64 10^3/UL (140-415); POSITIVE DIFF @See below; RED CELL DISTRIBUTION WIDTH 16.7 % (11.5-14.5)
[2018-01-10 17:50] LABS: INR 1.21; PROTIME 15.5 Sec (11.9-14.9); PT RATIO 1.2
[2018-01-10 17:51] LABS: ADD MAN DIFF? YES; PARTIAL THROMBOPLASTIN TIME 36.7 Sec (25.0-35.0)
[2018-01-10 18:00] LABS: ALANINE AMINOTRANSFERASE 16 IU/L (13-69); ALBUMIN 3.1 g/dl (3.3-4.9); ALBUMIN/GLOBULIN RATIO 1.06; ALKALINE PHOSPHATASE 120 IU/L (42-121); ANION GAP 13 (8-16); ASPARTATE AMINO TRANSFERASE 17 IU/L (15-46); BILIRUBIN,INDIRECT 0.4 mg/dl (0-1.1); BILIRUBIN,TOTAL 0.4 mg/dl (0.2-1.3); BLOOD UREA NITROGEN 33 mg/dl (7-20); CALCIUM 8.7 mg/dl (8.4-10.2); CARBON DIOXIDE 31 mmol/L (21-31); CHLORIDE 94 mmol/L (97-110); CREATININE 1.58 mg/dl (0.61-1.24); GLUCOSE 161 mg/dl (70-220); LIPASE 30 U/L (23-300); POTASSIUM 4.3 mmol/L (3.5-5.1); SODIUM 134 mmol/L (135-144)
[2018-01-10 18:11] LABS: TROPONIN-I 0.098 ng/ml (0.000-0.120)
[2018-01-10 18:37] LABS: ANISOCYTOSIS 1+ (0-0); BAND NEUTROPHILS #M 1.1 10^3/ul (0.0-0.6); BAND NEUTROPHILS % (M) 4 % (0-4); BASOPHIL #M 1.1 10^3/ul (0.0-0.0); BASOPHILS % (M) 4 % (0-2); EOSINOPHILS % (M) 4 % (0-7); ERYTHROBLAST% (NRBC) (M) 4 % (0-0); GIANT THROMBO% (M) 2 % (0-0); HYPOCHROMASIA 1+ (0-0); LYMPHOCYTES #M 3.1 10^3/ul (0.8-2.9); LYMPHOCYTES % (M) 11 % (15-51); MICROCYTOSIS 1+ (0-0); MONOCYTE #M 3.1 10^3/ul (0.3-0.9); MONOCYTES % (M) 11 % (0-11); OVALOCYTES 1+ (0-0); PLATELET ESTIMATE DECREASED; POIKILOCYTOSIS 1+ (0-0); POLYCHROMASIA 1+ (0-0); SEG NEUT #M 4.9 10^3/ul (1.6-7.5); SEGMENTED NEUTROPHILS (M) % 16 % (39-77); SMUDGE%M 35 % (0-0)
[2018-01-10] MEDS ORDERED: ZOLPIDEM 5 MG TAB PO (21:00)
[2018-01-10] MEDS: INSULIN ASPART [NOVOLOG] 3 ML PEN SC (21:00)
[2018-01-10] MEDS ORDERED: ACETAMINOPHEN 325 MG TAB PO (21:00)
[2018-01-10 21:24] LABS: HEMOGLOBIN A1C 6.8 % (0-5.9)
[2018-01-10] MEDS ORDERED: DEXTROSE 50% 50 ML SYRINGE IV ×2 (22:00)
[2018-01-10] MEDS ORDERED: GLUCAGON 1 MG INJ IM (22:00)
[2018-01-10] MEDS ORDERED: GLUCOSE GEL 15 GRAM TUBE BUCCAL (22:00)
[2018-01-10] MEDS ORDERED: GLUCOSE GEL 15 GRAM TUBE PO ×2 (22:00)
[2018-01-10] MEDS: RANOLAZINE (SR) 500 MG TAB PO (22:22)
[2018-01-10] MEDS: TAMSULOSIN (SR) 0.4 MG CAP PO (22:23)
[2018-01-10] MEDS: DRONABINOL 2.5 MG CAP PO (22:53)
[2018-01-10] MEDS: FUROSEMIDE 20 MG INJ IV (22:54)
[2018-01-10] MEDS: SOD CHLORIDE 0.9% 250 ML IV* (23:32)
[2018-01-11] MEDS: ACCU-CHEK XX (01:49)
[2018-01-11] MEDS: FUROSEMIDE 20 MG INJ IV ×2 (04:55→11:27)
[2018-01-11 06:16] LABS: IMMEDIATE SPIN CROSSMATCH 1 6
[2018-01-11] MEDS: RANOLAZINE (SR) 500 MG TAB PO (08:13)
[2018-01-11] MEDS: DRONABINOL 2.5 MG CAP PO (08:13)
[2018-01-11] MEDS: ICLUSIG PO (08:14)
[2018-01-11] MEDS: INSULIN ASPART [NOVOLOG] 3 ML PEN SC ×2 (08:17→13:27)
[2018-01-11] MEDS ORDERED: PONATINIB HCL PO (09:00)
[2018-01-11 11:42] LABS: WHITE BLOOD COUNT 23.8 10^3/ul (4.8-10.8)
[2018-01-11 11:42] LABS: ABNORMAL IP MESSAGE 1; HEMATOCRIT 31.1 % (42.0-52.0); HEMOGLOBIN 10.3 g/dl (14.0-18.0); MEAN CORPUSCULAR HEMOGLOBIN 28.6 pg (29.0-33.0); MEAN CORPUSCULAR HGB CONC 33.1 g/dl (32.0-37.0); MEAN CORPUSCULAR VOLUME 86.4 fl (82.0-101.0); NUCLEATED RED BLOOD CELLS% 4.1 /100WBC (0.0-0.0); PLATELET COUNT 42 10^3/UL (140-415); POSITIVE DIFF @See below; RED CELL DISTRIBUTION WIDTH 16.4 % (11.5-14.5)
[2018-01-11 11:45] LABS: ADD MAN DIFF? YES
[2018-01-11 12:16] LABS: ANION GAP 15 (8-16); BLOOD UREA NITROGEN 33 mg/dl (7-20); CALCIUM 8.5 mg/dl (8.4-10.2); CARBON DIOXIDE 27 mmol/L (21-31); CHLORIDE 96 mmol/L (97-110); CREATININE 1.49 mg/dl (0.61-1.24); GLUCOSE 140 mg/dl (70-220); POTASSIUM 4.2 mmol/L (3.5-5.1); SODIUM 134 mmol/L (135-144)
[2018-01-11 12:22] LABS: B-TYPE NATRIURETIC PEPTIDE 26000 PG/ML (0-125)
[2018-01-11 12:38] LABS: ANISOCYTOSIS 1+ (0-0); BAND NEUTROPHILS #M 1.1 10^3/ul (0.0-0.6); BAND NEUTROPHILS % (M) 5 % (0-4); BASOPHIL #M 0.4 10^3/ul (0.0-0.0); BASOPHILS % (M) 2 % (0-2); EOSINOPHILS % (M) 2 % (0-7); ERYTHROBLAST% (NRBC) (M) 4 % (0-0); LYMPHOCYTES #M 2.6 10^3/ul (0.8-2.9); LYMPHOCYTES % (M) 11 % (15-51); METAMYELOCYTES #M 0.7 10^3/ul (0.0-0.0); METAMYELOCYTES %M 3 % (0-0); MICROCYTOSIS 1+ (0-0); MONOCYTES % (M) 13 % (0-11); MYELOCYTES #M 0.9 10^3/ul (0.0-0.0); MYELOCYTES % (M) 4 % (0-0); PLATELET ESTIMATE SIG DECREASED; PROMYELOCYTES #M 0.2 10^3/ul (0-0); PROMYELOCYTES % (M) 1 % (0-0); SEG NEUT #M 2.6 10^3/ul (1.6-7.5); SEGMENTED NEUTROPHILS (M) % 10 % (39-77); SMUDGE%M 72 % (0-0)
== END 2018-01-11 18:40 | disposition home or self-care (01) | DRG 836 ==
LOC: E/R 16:33 → 2NE 18:04
PROVIDERS: Pediatrics
PROC: 30233N1 Transfusion of Nonautologous Red Blood Cells into Peripheral Vein, Percutaneous Approach (ICD-10-PCS; principal; 2018-01-11)
DX: C92.00 Acute myeloblastic leukemia, not having achieved remission (principal); D63.0 Anemia in neoplastic disease; E11.9 Type 2 diabetes mellitus without complications; I10 Essential (primary) hypertension; F03.90 Unspecified dementia, unspecified severity, without behavioral disturbance, psychotic disturbance, mood disturbance, and anxiety; M19.90 Unspecified osteoarthritis, unspecified site; K21.9 Gastro-esophageal reflux disease without esophagitis
CPT/HCPCS: 36415; 36430; 71045; 80048; 80053; 82962; 83036; 83690; 83880; 84484; 85025; 85610; 85730; 86644; 86850; 86900; 86901; 86920; 86945; 93005; 99285-25

== ENCOUNTER 2018-01-22 10:42 | Inpatient (IN) | payer MEDICARE, BC ==
[2018-01-22] MEDS: ACETAMINOPHEN 325 MG TAB PO (11:20)
[2018-01-22] MEDS: SODIUM CHLORIDE 0.9% 1L BAG IV* (11:20)
[2018-01-22] MEDS: LEVOFLOXACIN 750MG/D5W (PMX) 150 ML IVPB (11:31)
[2018-01-22 11:39] LABS: ABNORMAL IP MESSAGE 1; HEMATOCRIT 22.2 % (42.0-52.0); HEMOGLOBIN 7.1 g/dl (14.0-18.0); MEAN CORPUSCULAR HEMOGLOBIN 28.1 pg (29.0-33.0); MEAN CORPUSCULAR VOLUME 87.7 fl (82.0-101.0); NUCLEATED RED BLOOD CELLS% 0.8 /100WBC (0.0-0.0); PLATELET COUNT 45 10^3/UL (140-415); POSITIVE DIFF @See below; RED BLOOD COUNT 2.53 10^6/ul (4.70-6.10); RED CELL DISTRIBUTION WIDTH 16.5 % (11.5-14.5)
[2018-01-22 11:39] LABS: WHITE BLOOD COUNT 48.1 10^3/ul (4.8-10.8)
[2018-01-22 11:46] LABS: ADD MAN DIFF? YES
[2018-01-22 11:57] LABS: INR 1.29; PROTIME 16.3 Sec (11.9-14.9); PT RATIO 1.3
[2018-01-22 11:58] LABS: PARTIAL THROMBOPLASTIN TIME 36.5 Sec (23.0-35.0)
[2018-01-22 12:02] LABS: LACTIC ACID 0.9 mmol/L (0.5-2.0)
[2018-01-22 12:03] LABS: ALANINE AMINOTRANSFERASE 27 IU/L (13-69); ALBUMIN 2.3 g/dl (3.3-4.9); ALBUMIN/GLOBULIN RATIO 0.95; ALKALINE PHOSPHATASE 55 IU/L (42-121); ANION GAP 11 (8-16); ASPARTATE AMINO TRANSFERASE 13 IU/L (15-46); BILIRUBIN,INDIRECT 0.5 mg/dl (0-1.1); BILIRUBIN,TOTAL 0.5 mg/dl (0.2-1.3); BLOOD UREA NITROGEN 20 mg/dl (7-20); CALCIUM 7.8 mg/dl (8.4-10.2); CARBON DIOXIDE 29 mmol/L (21-31); CHLORIDE 97 mmol/L (97-110); CREATININE 1.11 mg/dl (0.61-1.24); GLUCOSE 146 mg/dl (70-220); POTASSIUM 3.8 mmol/L (3.5-5.1); SODIUM 133 mmol/L (135-144); TOTAL PROTEIN 4.7 g/dl (6.1-8.1)
[2018-01-22 12:14] LABS: TROPONIN-I 0.032 ng/ml (0.000-0.120)
[2018-01-22 12:19] LABS: ANISOCYTOSIS 1+ (0-0); BASOPHIL #M 2.4 10^3/ul (0.0-0.0); BASOPHILS % (M) 5 % (0-2); BLAST% (M) 57.9 % (0-0); EOSINOPHILS % (M) 1 % (0-7); LYMPHOCYTES #M 7.6 10^3/ul (0.8-2.9); LYMPHOCYTES % (M) 16 % (15-51); METAMYELOCYTES #M 1.4 10^3/ul (0.0-0.0); METAMYELOCYTES %M 3 % (0-0); MICROCYTOSIS 1+ (0-0); MONOCYTE #M 6.7 10^3/ul (0.3-0.9); MONOCYTES % (M) 14 % (0-11); PLATELET ESTIMATE DECREASED; RBC MORPHOLOGY COMMENT @See below; SEGMENTED NEUTROPHILS (M) % 4 % (39-77); SMUDGE%M 8 % (0-0); WBC MORPHOLOGY COMMENT @See below
[2018-01-22] MEDS: VANCOMYCIN 1 GM (PMX) 250 ML IVPB (12:58)
[2018-01-22] MEDS: SOD CHLORIDE 0.9% 1,000 ML IV ×3 (13:05→13:14)
[2018-01-22] MEDS ORDERED: ONDANSETRON 4 MG INJ IV ×2 (13:30→16:00)
[2018-01-22] MEDS ORDERED: ACETAMINOPHEN 325 MG TAB PO (13:30)
[2018-01-22 15:52] LABS: LACTIC ACID 0.8 mmol/L (0.5-2.0)
[2018-01-22] MEDS ORDERED: GLUCAGON 1 MG INJ IM (16:00)
[2018-01-22] MEDS ORDERED: VANCOMYCIN IV PER PHARMACY XX (16:00)
[2018-01-22] MEDS ORDERED: GLUCOSE GEL 15 GRAM TUBE PO ×2 (16:00)
[2018-01-22] MEDS ORDERED: DEXTROSE 50% 50 ML SYRINGE IV ×2 (16:00)
[2018-01-22] MEDS ORDERED: GLUCOSE GEL 15 GRAM TUBE BUCCAL (16:00)
[2018-01-22] MEDS: INSULIN ASPART [NOVOLOG] 3 ML PEN SC ×2 (17:19→21:00)
[2018-01-22] MEDS: METOPROLOL 25 MG TAB PO (17:26)
[2018-01-22 18:46] LABS: LACTIC ACID 1.2 mmol/L (0.5-2.0)
[2018-01-22 18:55] LABS: PREALBUMIN 6.7 mg/dl (17.6-36.0)
[2018-01-22] MEDS: FUROSEMIDE 20 MG INJ IV ×2 (20:05→23:20)
[2018-01-22] MEDS: DRONABINOL 2.5 MG CAP PO (20:35)
[2018-01-22] MEDS: RANOLAZINE (SR) 500 MG TAB PO (20:36)
[2018-01-22] MEDS: TAMSULOSIN (SR) 0.4 MG CAP PO (20:37)
[2018-01-22 20:54] LABS: ADD UMIC YES; UR ASCORBIC ACID NEGATIVE (NEGATIVE); UR BACTERIA FEW /HPF (NONE SEEN); UR BILIRUBIN (Dip) NEGATIVE (NEGATIVE); UR BLOOD (Dip) NEGATIVE (NEGATIVE); UR CLARITY CLOUDY (CLEAR); UR COLOR YELLOW (YELLOW); UR GLUCOSE (Dip) 2+ mg/dL (NEGATIVE); UR KETONES (Dip) NEGATIVE (NEGATIVE); UR LEUKOCYTE ESTERASE (Dip) NEGATIVE Leu/ul (NEGATIVE); UR NITRITE (Dip) NEGATIVE (NEGATIVE); UR RBC 2 /HPF (0-5); UR SPECIFIC GRAVITY (Dip) 1.015 (1.003-1.030); UR TOTAL PROTEIN (Dip) NEGATIVE (NEGATIVE); UR URIC ACID CRYSTAL FEW /HPF (NONE SEEN); UR UROBILINOGEN (Dip) NEGATIVE (NEGATIVE); UR WBC 4 /HPF (0-5)
[2018-01-22 23:12] LABS: IMMEDIATE SPIN CROSSMATCH 1 3
[2018-01-23] MEDS: FUROSEMIDE 20 MG INJ IV (02:39)
[2018-01-23 06:19] LABS: WHITE BLOOD COUNT 62.3 10^3/ul (4.8-10.8)
[2018-01-23 06:19] LABS: ABNORMAL IP MESSAGE 1; HEMATOCRIT 30.9 % (42.0-52.0); HEMOGLOBIN 10.2 g/dl (14.0-18.0); MEAN CORPUSCULAR HEMOGLOBIN 27.9 pg (29.0-33.0); MEAN CORPUSCULAR VOLUME 84.4 fl (82.0-101.0); PLATELET COUNT 38 10^3/UL (140-415); POSITIVE DIFF @See below; RED BLOOD COUNT 3.66 10^6/ul (4.70-6.10); RED CELL DISTRIBUTION WIDTH 17.1 % (11.5-14.5)
[2018-01-23 06:45] LABS: ADD MAN DIFF? YES
[2018-01-23 06:46] LABS: B-TYPE NATRIURETIC PEPTIDE 26900 PG/ML (0-125)
[2018-01-23 06:55] LABS: ANION GAP 11 (8-16); BLOOD UREA NITROGEN 21 mg/dl (7-20); CALCIUM 8.2 mg/dl (8.4-10.2); CARBON DIOXIDE 27 mmol/L (21-31); CHLORIDE 99 mmol/L (97-110); CREATININE 1.09 mg/dl (0.61-1.24); GLUCOSE 121 mg/dl (70-220); SODIUM 133 mmol/L (135-144)
[2018-01-23] MEDS: INSULIN ASPART [NOVOLOG] 3 ML PEN SC ×5 (07:43→20:47)
[2018-01-23] MEDS: FUROSEMIDE 40 MG TAB PO (08:12)
[2018-01-23] MEDS: METOPROLOL 25 MG TAB PO ×2 (08:13→16:50)
[2018-01-23] MEDS: RANOLAZINE (SR) 500 MG TAB PO ×2 (08:14→20:21)
[2018-01-23] MEDS: CYCLOSPORINE 0.05% OPH DROPERETTE BOTH EYES ×2 (08:14→20:21)
[2018-01-23] MEDS: DRONABINOL 2.5 MG CAP PO ×2 (08:14→20:21)
[2018-01-23 09:59] LABS: ANISOCYTOSIS 1+ (0-0); BAND NEUTROPHILS #M 1.8 10^3/ul (0.0-0.6); BAND NEUTROPHILS % (M) 3 % (0-4); BASOPHIL #M 0.6 10^3/ul (0.0-0.0); BASOPHILS % (M) 1 % (0-2); BLAST% (M) 71.7 % (0-0); BURR CELLS 1+ (0-0); ERYTHROBLAST% (NRBC) (M) 1 % (0-0); GIANT THROMBO% (M) 3 % (0-0); LYMPHOCYTES #M 6.2 10^3/ul (0.8-2.9); LYMPHOCYTES % (M) 10 % (15-51); MICROCYTOSIS 1+ (0-0); MONOCYTE #M 3.1 10^3/ul (0.3-0.9); MONOCYTES % (M) 5 % (0-11); MYELOCYTES #M 1.2 10^3/ul (0.0-0.0); MYELOCYTES % (M) 2 % (0-0); PLATELET ESTIMATE SIG DECREASED; POIKILOCYTOSIS 1+ (0-0); POLYCHROMASIA 1+ (0-0); PROMYELOCYTES #M 0.6 10^3/ul (0-0); PROMYELOCYTES % (M) 1 % (0-0); REACTIVE LYMPHOCYTES #M 1.2 10^3/ul (0.0-0.0); REACTIVE LYMPHOCYTES% (M) 2 % (0-0); SEG NEUT #M 3.6 10^3/ul (1.6-7.5); SEGMENTED NEUTROPHILS (M) % 4 % (39-77); TARGET CELLS 1+ (0-0)
[2018-01-23] MEDS: VANCOMYCIN 750 MG in SOD CHLORIDE 0.9% 150 ML IVPB ×2 (12:44→23:17)
[2018-01-23] MEDS ORDERED: VANCOMYCIN 1.25 GM in SOD CHLORIDE 0.9% 250 ML IVPB (13:00)
[2018-01-23] MEDS: IPRATROPIUM (NEB) 0.5 MG/2.5 ML AMP HHN ×2 (14:00→20:21)
[2018-01-23] MEDS: LEVOFLOXACIN 750MG/D5W (PMX) 150 ML IVPB (14:57)
[2018-01-23] MEDS: MEGESTROL (40 MG/ML) 10ML CUP PO (14:57)
[2018-01-23] MEDS: TAMSULOSIN (SR) 0.4 MG CAP PO (20:47)
[2018-01-24] MEDS: IPRATROPIUM (NEB) 0.5 MG/2.5 ML AMP HHN ×4 (02:28→19:37)
[2018-01-24 06:27] LABS: WHITE BLOOD COUNT 79.8 10^3/ul (4.8-10.8)
[2018-01-24 06:27] LABS: ABNORMAL IP MESSAGE 1; HEMATOCRIT 31.5 % (42.0-52.0); HEMOGLOBIN 10.4 g/dl (14.0-18.0); MEAN CORPUSCULAR VOLUME 84.7 fl (82.0-101.0); NUCLEATED RED BLOOD CELLS% 0.9 /100WBC (0.0-0.0); PLATELET COUNT 42 10^3/UL (140-415); POSITIVE DIFF @See below; RED BLOOD COUNT 3.72 10^6/ul (4.70-6.10); RED CELL DISTRIBUTION WIDTH 17.2 % (11.5-14.5)
[2018-01-24 06:35] LABS: ADD MAN DIFF? YES
[2018-01-24 06:54] LABS: B-TYPE NATRIURETIC PEPTIDE 28000 PG/ML (0-125)
[2018-01-24 06:59] LABS: ANION GAP 12 (8-16); BLOOD UREA NITROGEN 24 mg/dl (7-20); CALCIUM 8.5 mg/dl (8.4-10.2); CARBON DIOXIDE 26 mmol/L (21-31); CHLORIDE 99 mmol/L (97-110); GLUCOSE 125 mg/dl (70-220); POTASSIUM 3.9 mmol/L (3.5-5.1); SODIUM 133 mmol/L (135-144)
[2018-01-24] MEDS: INSULIN ASPART [NOVOLOG] 3 ML PEN SC ×4 (07:48→20:51)
[2018-01-24] MEDS: METOPROLOL 25 MG TAB PO ×2 (08:01→17:37)
[2018-01-24] MEDS: MEGESTROL (40 MG/ML) 10ML CUP PO (08:38)
[2018-01-24] MEDS: RANOLAZINE (SR) 500 MG TAB PO ×2 (08:38→20:27)
[2018-01-24] MEDS: FUROSEMIDE 40 MG TAB PO ×2 (08:42→17:38)
[2018-01-24 08:43] LABS: ANISOCYTOSIS 1+ (0-0); BAND NEUTROPHILS #M 0.7 10^3/ul (0.0-0.6); BAND NEUTROPHILS % (M) 1 % (0-4); BASOPHIL #M 1.5 10^3/ul (0.0-0.0); BASOPHILS % (M) 2 % (0-2); BURR CELLS 1+ (0-0); EOSINOPHILS % (M) 3 % (0-7); ERYTHROBLAST% (NRBC) (M) 2 % (0-0); LYMPHOCYTES #M 4.7 10^3/ul (0.8-2.9); LYMPHOCYTES % (M) 6 % (15-51); MICROCYTOSIS 1+ (0-0); MONOCYTE #M 5.5 10^3/ul (0.3-0.9); MONOCYTES % (M) 7 % (0-11); PLATELET ESTIMATE SIG DECREASED; POIKILOCYTOSIS 1+ (0-0); POLYCHROMASIA 1+ (0-0); PROMYELOCYTES #M 5.5 10^3/ul (0-0); PROMYELOCYTES % (M) 7 % (0-0); SEGMENTED NEUTROPHILS (M) % 3 % (39-77); SMUDGE%M 18 % (0-0); SPHEROCYTES 2+ (0-0)
[2018-01-24] MEDS: DRONABINOL 2.5 MG CAP PO ×2 (08:47→20:27)
[2018-01-24] MEDS: VANCOMYCIN 750 MG in SOD CHLORIDE 0.9% 150 ML IVPB ×2 (12:01→23:16)
[2018-01-24] MEDS: CYCLOSPORINE 0.05% OPH DROPERETTE BOTH EYES ×2 (12:01→20:28)
[2018-01-24] MEDS: LEVOFLOXACIN 750MG/D5W (PMX) 150 ML IVPB (13:10)
[2018-01-24] MEDS: TAMSULOSIN (SR) 0.4 MG CAP PO (20:51)
[2018-01-24 23:03] LABS: VANCOMYCIN,TROUGH 15.1 ug/ml (10.0-20.0)
[2018-01-25] MEDS: IPRATROPIUM (NEB) 0.5 MG/2.5 ML AMP HHN ×3 (01:47→14:00)
[2018-01-25] MEDS: FUROSEMIDE 40 MG TAB PO (06:00)
[2018-01-25] MEDS: INSULIN ASPART [NOVOLOG] 3 ML PEN SC ×2 (07:38→11:50)
[2018-01-25] MEDS: DRONABINOL 2.5 MG CAP PO (09:00)
[2018-01-25] MEDS: MEGESTROL (40 MG/ML) 10ML CUP PO (09:54)
[2018-01-25] MEDS: RANOLAZINE (SR) 500 MG TAB PO (09:54)
[2018-01-25] MEDS: CYCLOSPORINE 0.05% OPH DROPERETTE BOTH EYES (09:55)
[2018-01-25] MEDS: METOPROLOL 25 MG TAB PO (09:56)
[2018-01-25] MEDS: VANCOMYCIN 750 MG in SOD CHLORIDE 0.9% 150 ML IVPB (11:48)
[2018-01-25] MEDS: LEVOFLOXACIN 750MG/D5W (PMX) 150 ML IVPB (13:00)
[2018-01-25] MEDS ORDERED: VANCOMYCIN 500MG/NS (PMX) 100 ML IVPB (23:30)
== END 2018-01-25 14:39 | disposition hospice, home (50) | DRG 193 ==
LOC: E/R 10:42 → TEL 13:15
DX: J18.9 Pneumonia, unspecified organism (principal); I50.23 Acute on chronic systolic (congestive) heart failure; C92.00 Acute myeloblastic leukemia, not having achieved remission; E87.1 Hypo-osmolality and hyponatremia; G93.40 Encephalopathy, unspecified; I42.9 Cardiomyopathy, unspecified; I11.0 Hypertensive heart disease with heart failure; I25.10 Atherosclerotic heart disease of native coronary artery without angina pectoris; E11.9 Type 2 diabetes mellitus without complications; I95.9 Hypotension, unspecified; K21.9 Gastro-esophageal reflux disease without esophagitis; E78.5 Hyperlipidemia, unspecified; N40.0 Benign prostatic hyperplasia without lower urinary tract symptoms; Z87.891 Personal history of nicotine dependence
CPT/HCPCS: 36430; 71045; 80048; 80053; 80202; 81001; 82962; 83605; 83880; 84134; 84484; 85025; 85610; 85730; 86644; 86850; 86900; 86901; 86920; 86945; 87040; 87081; 87086; 93005; 94640; 94664; 96365; 96366; 96375; 99285-25